=== PATIENT | female | born 1965 | race African-American/Black ===

== ENCOUNTER 2016-04-25 09:47 | Emergency (ER) | payer SELFPAY ==
[~2016-04-25] VITALS: Ht 160 cm; Wt 105.0 kg
[~2016-04-25 09:47] MED LIST: ERYT1O LEFT EYE
[2016-04-25 09:48] VITALS: BP 187/81; PULSE 73; RESP 15; TEMP 98.1; O2SAT 99
[2016-04-25 10:09] VITALS: BP 133/64
--- NOTE | 2016-04-25 10:31 | PD ---
HPI Chief Complaint: Cold / Flu Symptoms Time Seen by Provider: 10:30 Travel History International Travel<30 days: No Contact w/Intl Traveler<30days: No Traveled to known affect area: No History of Present Illness HPI 51-year-old Afro-[place] Islander female coming in with several day history of increasing cough and wheezing. Patient has a history of asthma. Patient states her cough become productive in the last couple of days. He is unsure fever but has had chills. She denies headache, sore throat, or pain, nausea, vomiting, or diarrhea. Patient states she does not have a nebulizer or inhaler. She has needed prednisone in the past for her asthma. She has no known drug allergies. [facility] Past Medical History Asthma: Yes Cardiovascular Problems: Yes (HTN) Chest Pain: Yes Diminished Hearing: No Hypertension: Yes Respiratory: Yes (copd) LMP: last week : 2 Para: 2 Social History Alcohol Use: Yes (OCCASIONAL) Tobacco Use: No (quit March) Substance Use: No Allergies-Medications (Allergen,Severity, Reaction): Coded Allergies: No Known Allergies (Verified , 04/25/16) Reported Meds & Prescriptions Reported Meds & Active Scripts Active Review of Systems Except as stated in HPI: all other systems reviewed are Neg General / Constitutional: Positive: Chills, No: Fever Eyes: No: Visual changes HENT: Positive: Rhinitis, Rhinorrhea, Congestion, No: Headaches, Sore Throat, Nosebleed, Neck Stiffness, Neck Pain, Ear Discharge, Earache Cardiovascular: No: Chest Pain or Discomfort Respiratory: Positive: Cough, Shortness of Breath, Wheezing, No: Sneezing, Orthopnea, Hemoptysis, Stridor, Night Sweats, Pleuritic Pain Gastrointestinal: No: Nausea, Vomiting, Diarrhea, Abdominal Pain Genitourinary: No: Dysuria Musculoskeletal: No: Pain Skin: No Rash Neurologic: No: Weakness Psychiatric: No: Depression Endocrine: No: Polydipsia Hematologic/Lymphatic: No: Easy Bruising Physical Exam Narrative GENERAL: Patient appears in mild to moderate respiratory distress. SKIN: Warm and dry. Normal color. Normal turgor. No diaphoresis. HEAD: Atraumatic. Normocephalic. EYES: Pupils equal and round. No scleral icterus. No injection or drainage. ENT: No nasal bleeding or discharge. Mucous membranes pink and moist. TMs are clear bilaterally no sinus tenderness. Pharynx appears normal. No significant erythema or injection. Airway is patent. NECK: Trachea midline. Supple and nontender. CARDIOVASCULAR: Regular rate and rhythm. RESPIRATORY: No accessory muscle use. Diffuse expiratory wheezes throughout to auscultation. No rales or rhonchi. Breath sounds equal bilaterally. GASTROINTESTINAL: Abdomen soft, non-tender, nondistended. Hepatic and splenic margins not palpable. MUSCULOSKELETAL: Extremities without clubbing, cyanosis, or edema. No obvious deformities. NEUROLOGICAL: Awake and alert. No obvious cranial nerve deficits. Motor grossly within normal limits. Five out of 5 muscle strength in the arms and legs. Normal speech. PSYCHIATRIC: Appropriate mood and affect; insight and judgment normal. Data Data Last Documented VS Vital Signs Date Time Temp Pulse Resp B/P Pulse Ox O2 Delivery O2 Flow Rate FiO2 04/25/16 10:57 98 21 04/25/16 10:09 133/64 04/25/16 09:48 98.1 73 15 Orders Ecg Monitoring (04/25/16 10:44) Oximetry (04/25/16 10:44) Oxygen Administration (04/25/16 10:44) Prednisone (Deltasone) (04/25/16 10:45) Albuterol-Ipratropium Neb (Duoneb Neb) (04/25/16 10:45) Chest, Single Ap (04/25/16 10:44) MDM Medical Decision Making Medical Screen Exam Complete: Yes Emergency Medical Condition: Yes Differential Diagnosis Upper respiratory infection. Bronchitis. Asthmatic flare. Wheezing. Narrative Course Patient is medically stable at time of exam. Patient is given 60 mg prednisone by mouth as well as DuoNeb 3 every 15 minutes. Chest x-ray is obtained. Chest x-ray shows no acute signs of pneumonia. Prominent heart is noted and unchanged from previous. No signs of CHF per radiologist. After the above treatment patient appears improved, with improved air movement with auscultation. Patient is discharged home on Bactrim DS twice a day 10 days. Take prednisone 20 mg twice a day 7 days. Patient is given albuterol metered-dose inhaler 2 puffs every 4-6 hours when necessary wheeze. Patient is given a work note. Patient is to follow-up with her primary care physician or return to emergency Department with worsening symptoms as needed. Diagnosis Primary Impression: Asthma with acute exacerbation in adult Additional Impressions: Bronchitis Wheezing Referrals: Primary Care Physician Patient Instructions: Asthma (ED), General Instructions, How to Use a Metered- Dose Inhaler (DC) Departure Forms: Work Release Enter return to work date: Apr 29, 2016 Additional Instructions: Chest x-ray shows no acute signs of pneumonia. Prominent heart is noted and unchanged from previous. No signs of CHF per radiologist. After the above treatment patient appears improved, with improved air movement with auscultation. Patient is discharged home on Bactrim DS twice a day 10 days. Take prednisone 20 mg twice a day 7 days. Patient is given albuterol metered-dose inhaler 2 puffs every 4-6 hours when necessary wheeze. Patient is given a work note. Patient is to follow-up with her primary care physician or return to emergency Department with worsening symptoms as needed. Med/Other Pt SpecificInfo: Prescription(s) given Disposition: 01 DISCHARGE HOME Condition: Stable Jesús Byrd Apr 25, 2016 10:30
[2016-04-25] MEDS ORDERED: predniSONE 20 MG TAB PO ONE (10:45)
[2016-04-25] MEDS: RESP: ALBUTEROL 2.5 MG/IPRATROPIUM 0.5 MG NEB (SCH) INH ×2 (10:53→10:54)
[2016-04-25 10:57] VITALS: O2SAT 98
--- NOTE | 2016-04-25 11:41 | RADRPT ---
EXAM DATE/TIME: 04/25/2016 10:42 [facility] COMPARISON: CHEST SINGLE AP, July 14, 2014, 10:32. INDICATIONS : Pain in Middle Anterior Chest. Shortness of Breath. Cough for 8 days. MEDICAL HISTORY : None. SURGICAL HISTORY : None. ENCOUNTER: Initial ACUITY: 1 week PAIN SCORE: 8/10 LOCATION: Bilateral chest FINDINGS: A single view of the chest demonstrates the lungs to be symmetrically aerated without evidence of mas s, infiltrate or effusion. The heart size remains prominent. There is no perihilar edema. Osseous st ructures are intact. CONCLUSION: No acute disease. There is no evidence of pneumonia. Rodriguez Bird MD on April 25, 2016 at 11:38 Board Certified Radiologist. This report was verified electronically.
[2016-04-25] MEDS ORDERED: PRED20 PO (11:53)
[2016-04-25] MEDS ORDERED: BACT800T5 PO (11:53)
[2016-04-25] MEDS ORDERED: VENTAER INH (11:53)
== END 2016-04-25 12:12 | disposition home or self-care (01) ==
LOC: NEPB 09:47
DX: J44.1 Chronic obstructive pulmonary disease with (acute) exacerbation (principal); I10 Essential (primary) hypertension; Z87.891 Personal history of nicotine dependence
CPT/HCPCS: 71010; 94640; 94664; 99283; J7512

== ENCOUNTER 2016-04-28 11:10 | Emergency (ER) | payer SELFPAY ==
[~2016-04-28] VITALS: Ht 160 cm; Wt 104.5 kg
[~2016-04-28 11:10] MED LIST changes: +BACT800T5 PO; -ERYT1O LEFT EYE; +PRED20 PO; +VENTAER INH
[2016-04-28 11:13] VITALS: BP 168/82; PULSE 93; RESP 24; TEMP 98.5; O2SAT 89
[2016-04-28] MEDS ORDERED: SODIUM CHLORIDE 0.9% FLUSH 5 ML FLUSH IVF PRN (11:45)
[2016-04-28 11:58] LABS: AUTOMATED NEUTROPHIL # 3.8 TH/MM3 (1.8-7.7); BASOPHIL # 0.1 TH/MM3 (0-0.2); BASOPHIL % 1.3 % (0.0-2.0); EOSINOPHIL # 0.2 TH/MM3 (0-0.4); EOSINOPHIL % 2.5 % (0.0-4.0); HEMATOCRIT 33.8 % (35.0-46.0); LYMPH % 18.1 % (9.0-44.0); LYMPHOCYTE # 1.1 TH/MM3 (1.0-4.8); MEAN CELL VOLUME 65.2 FL (80.0-100.0); MEAN CORPUSCULAR HEMOGLOBIN 21.1 PG (27.0-34.0); MEAN CORPUSCULAR HGB CONC 32.4 % (32.0-36.0); MONO % 17.9 % (0.0-8.0); NEUT % 60.2 % (16.0-70.0); PLATELET COUNT 298 TH/MM3 (150-450); RED BLOOD COUNT 5.18 MIL/MM3 (4.00-5.30); RED CELL DISTRIBUTION WIDTH 25.2 % (11.6-17.2); WHITE BLOOD COUNT 6.2 TH/MM3 (4.0-11.0)
[2016-04-28] MEDS ORDERED: methylPREDNISolone SOD SUCC 125 MG/2 ML VIAL IV PUSH ONE (12:00)
[2016-04-28 12:01] LABS: HEMO FLAGS AUTO DIFF
--- NOTE | 2016-04-28 12:02 | RADRPT ---
EXAM DATE/TIME: 04/28/2016 11:34 [facility] COMPARISON: CHEST SINGLE AP, April 25, 2016, 10:42. INDICATIONS : Cough. MEDICAL HISTORY : None. SURGICAL HISTORY : None. ENCOUNTER: Initial ACUITY: 3 days PAIN SCORE: 0/10 LOCATION: Bilateral chest FINDINGS: A single view of the chest demonstrates a mild infiltrate in the right lung base. Otherwise, the lung s are clear. There is some mild prominence of the pulmonary vasculature suggestive of some venous con gestion. The heart is diffusely enlarged but stable compared to the prior examination. There are no p leural effusions. The bony structures are stable.. CONCLUSION: 1. Mild right lower lung infiltrate. 2. Mild pulmonary venous congestion 3. Stable cardiomegaly. Randell Lagos MD on April 28, 2016 at 11:59 Board Certified Radiologist. This report was verified electronically.
[2016-04-28 12:04] VITALS: O2SAT 92
[2016-04-28] MEDS: RESP: ALBUTEROL 2.5 MG/IPRATROPIUM 0.5 MG NEB (SCH) INH ×2 (12:06→12:55)
[2016-04-28 12:15] LABS: ALT (GPT) 19 U/L (10-53); ANION GAP 8 MEQ/L (5-15); AST (GOT) 20 U/L (15-37); BICARBONATE 29.2 MEQ/L (21.0-32.0); BLOOD UREA NITROGEN 11 MG/DL (7-18); CHLORIDE 101 MEQ/L (98-107); GLOMERULAR FILTRATION RATE 70 ML/MIN (>89); POTASSIUM 3.7 MEQ/L (3.5-5.1); SODIUM (NA) 138 MEQ/L (136-145)
[2016-04-28 12:17] LABS: ALKALINE PHOSPHATASE 59 U/L (45-117); TOTAL BILIRUBIN ADULT 0.2 MG/DL (0.2-1.0)
[2016-04-28 12:25] VITALS: BP 164/78; PULSE 86; RESP 17; O2SAT 93
[2016-04-28 12:31] LABS: SCAN/DIFF AUTO DIFF CONFIRMED
[2016-04-28 12:56] VITALS: O2SAT 92
--- NOTE | 2016-04-28 13:21 | PD ---
HPI Chief Complaint: Respiratory Symptoms Time Seen by Provider: 11:56 Travel History International Travel<30 days: No Contact w/Intl Traveler<30days: No Traveled to known affect area: No History of Present Illness HPI 51-year-old female with history of COPD, nursing notes reviewed, presents to the ER today because of several days history of coughing, worsening shortness of breath, not controlled with her usual COPD exacerbation medications. She also complains of sore throat, body aches, not feeling well for a week. She does not know any sick contacts. She denies any fevers or other symptoms. Modifying Factors: None Associated Signs & Symptoms: Coughing, shortness of breath, Risk Factors: COPD PFSH Past Medical History Asthma: Yes Cardiovascular Problems: Yes (HTN) Chest Pain: Yes Diminished Hearing: No Hypertension: Yes Respiratory: Yes ?: Not LMP: -04/22/16 : 2 Para: 2 Past Surgical History Surgical History: No Previous Surgery Social History Alcohol Use: No Tobacco Use: No (quit March) Substance Use: No Allergies-Medications (Allergen,Severity, Reaction): Coded Allergies: No Known Allergies (Verified , 04/28/16) Reported Meds & Prescriptions Reported Meds & Active Scripts Active No Active Prescriptions or Reported Medications Review of Systems Except as stated in HPI: all other systems reviewed are Neg Physical Exam Narrative GENERAL: Well-nourished, well-developed middle age after [place] female patient in mild respiratory distress. Awake and oriented 3. SKIN: Warm and dry. HEAD: Normocephalic. EYES: No scleral icterus. No injection or drainage. NECK: Supple, trachea midline. CARDIOVASCULAR: Regular rate and rhythm without murmurs, gallops, or rubs. RESPIRATORY: Breath sounds equal with wheezing throughout bilaterally, right lower lobe crackles. Mild accessory muscle use. GASTROINTESTINAL: Abdomen soft, non-tender, nondistended. MUSCULOSKELETAL: No cyanosis, or edema. BACK: Nontender without obvious deformity. No CVA tenderness. Data Data Last Documented VS Vital Signs Date Time Temp Pulse Resp B/P Pulse Ox O2 Delivery O2 Flow Rate FiO2 04/28/16 12:56 92 Nasal Cannula 2.00 04/28/16 12:25 86 17 164/78 04/28/16 12:04 21 04/28/16 11:13 98.5 Orders Complete Blood Count With Diff (04/28/16 11:37) Comprehensive Metabolic Panel (04/28/16 11:37) Lactic Acid Sepsis Protocol (04/28/16 11:37) Influenzae A/B Antigen (04/28/16 11:37) Blood Culture (04/28/16 11:37) Chest, Single Ap (04/28/16 11:37) Sodium Chloride 0.9% Flush (Ns Flush) (04/28/16 11:45) Methylprednisolone So Succ Inj (Solumedr (04/28/16 12:00) Albuterol-Ipratropium Neb (Duoneb Neb) (04/28/16 12:00) Albuterol-Ipratropium Neb (Duoneb Neb) (04/28/16 12:45) Labs Laboratory Tests Test 04/28/16 11:46 White Blood Count 6.2 TH/MM3 Red Blood Count 5.18 MIL/MM3 Hemoglobin 10.9 GM/DL Hematocrit 33.8 % Mean Corpuscular Volume 65.2 FL Mean Corpuscular Hemoglobin 21.1 PG Mean Corpuscular Hemoglobin 32.4 % Concent Red Cell Distribution Width 25.2 % Platelet Count 298 TH/MM3 Mean Platelet Volume 9.6 FL Neutrophils (%) (Auto) 60.2 % Lymphocytes (%) (Auto) 18.1 % Monocytes (%) (Auto) 17.9 % Eosinophils (%) (Auto) 2.5 % Basophils (%) (Auto) 1.3 % Neutrophils # (Auto) 3.8 TH/MM3 Lymphocytes # (Auto) 1.1 TH/MM3 Monocytes # (Auto) 1.1 TH/MM3 Eosinophils # (Auto) 0.2 TH/MM3 Basophils # (Auto) 0.1 TH/MM3 CBC Comment AUTO DIFF Differential Comment AUTO DIFF CONFIRMED Sodium Level 138 MEQ/L Potassium Level 3.7 MEQ/L Chloride Level 101 MEQ/L Carbon Dioxide Level 29.2 MEQ/L Anion Gap 8 MEQ/L Blood Urea Nitrogen 11 MG/DL Creatinine 1.01 MG/DL Estimat Glomerular Filtration 70 ML/MIN Rate Random Glucose 86 MG/DL Lactic Acid Level 1.0 mmol/L Calcium Level 8.3 MG/DL Total Bilirubin 0.2 MG/DL Aspartate Amino Transf 20 U/L (AST/SGOT) Alanine Aminotransferase 19 U/L (ALT/SGPT) Alkaline Phosphatase 59 U/L Total Protein 7.4 GM/DL Albumin 3.3 GM/DL MDM Medical Decision Making Medical Screen Exam Complete: Yes Emergency Medical Condition: Yes Medical Record Reviewed: Yes Interpretation(s) Laboratory Tests Test 04/28/16 11:46 Hemoglobin 10.9 GM/DL (11.6-15.3) Hematocrit 33.8 % (35.0-46.0) Mean Corpuscular Volume 65.2 FL (80.0-100.0) Mean Corpuscular Hemoglobin 21.1 PG (27.0-34.0) Red Cell Distribution Width 25.2 % (11.6-17.2) Monocytes (%) (Auto) 17.9 % (0.0-8.0) Monocytes # (Auto) 1.1 TH/MM3 (0-0.9) Creatinine 1.01 MG/DL (0.50-1.00) Estimat Glomerular Filtration 70 ML/MIN (>89) Rate Calcium Level 8.3 MG/DL (8.5-10.1) Albumin 3.3 GM/DL (3.4-5.0) Last 24 hours Impressions Chest X-Ray 04/28/16 1137 Signed Impressions: Service Date/Time: Thursday, April 28, 2016 11:34 - CONCLUSION: 1. Mild right lower lung infiltrate. 2. Mild pulmonary venous congestion 3. Stable cardiomegaly. Randell Lagos MD Differential Diagnosis Coughing, shortness of breathCOPD exacerbation versus pneumonia versus bronchitis versus CHF Narrative Course Chest x-ray shows right lower lobe infiltrates indicative of possible underlying pneumonia. She was given Solu-Medrol and DuoNeb's in the ER with improvement symptoms. On reevaluation at 1:30 PM, she is feeling improved and my plan would be to release her with treatment of pneumonia and COPD exacerbation and have her follow-up with primary care physician. Return for worsening in fevers, shortness of breath, or new symptoms as needed. The plan has been discussed with her and she states understanding. Diagnosis Primary Impression: Asthma with acute exacerbation in adult Additional Impression: UNSPECIFIED BACTERIAL PNEUMONIA Med/Other Pt SpecificInfo: Prescription(s) given Scripts Albuterol 6.7 GM Inh (Proventil Hfa 6.7 GM Inh)90 Mcg/Act Aer2 Puff INH Q4-6H PRN (SHORTNESS OF BREATH) #1 INHALER Ref 0 Prov:Faith Zheng MD 04/28/16 Levofloxacin (Levaquin)750 Mg [id number] Mg PO DAILY 7 Days Ref 0 Prov:Faith Zheng MD 04/28/16 Prednisone 50 Mg Tab50 Mg PO DAILY #5 TAB Ref 0 Prov:Faith Zheng MD 04/28/16 Disposition: 01 DISCHARGE HOME Condition: Stable Faith Zheng MD Apr 28, 2016 13:21
[2016-04-28] MEDS ORDERED: PRED50 PO (13:53)
[2016-04-28] MEDS ORDERED: ALBU6.7H INH (13:53)
[2016-04-28] MEDS ORDERED: LEVA750T PO (13:53)
== END 2016-04-28 14:08 | disposition home or self-care (01) ==
LOC: NEPA 11:10
DX: J45.901 Unspecified asthma with (acute) exacerbation (principal); J15.9 Unspecified bacterial pneumonia; J44.9 Chronic obstructive pulmonary disease, unspecified
CPT/HCPCS: 71010; 80053; 83605; 85025; 87040; 87804; 94640; 94664; 96374; 99285; J2930

== ENCOUNTER 2016-05-01 14:47 | Emergency (ER) | payer SELFPAY ==
[~2016-05-01] VITALS: Ht 160 cm; Wt 100.0 kg
[~2016-05-01 14:47] MED LIST changes: +ALBU6.7H INH; -BACT800T5 PO; +LEVA750T PO; -PRED20 PO; +PRED50 PO; -VENTAER INH
[2016-05-01 14:49] VITALS: BP 245/107; PULSE 82; RESP 18; TEMP 98; O2SAT 97
--- NOTE | 2016-05-02 08:50 | EKG ---
Date Performed: 05/01/2016 Time Performed: 15:27:04 PTAGE: 51 years EKG: ECTOPIC ATRIAL RHYTHM MODERATE VOLTAGE CRITERIA FOR LVH, CONSIDER NORMAL VARIANT ABNORMAL R HYTHM ECG NO PREVIOUS TRACING DOCTOR: Alan Biggs Interpretating Date/Time 05/02/2016 08:44:16
== END 2016-05-01 17:26 | disposition left against medical advice (07) ==
LOC: NED 17:20
DX: R94.31 Abnormal electrocardiogram [ECG] [EKG] (principal)
CPT/HCPCS: 93005; 99281

== ENCOUNTER 2016-10-31 12:23 | Emergency (ER) | payer OTHER ==
[~2016-10-31] VITALS: Ht 160 cm; Wt 108.0 kg
[2016-10-31 12:25] VITALS: BP 188/82; PULSE 84; RESP 17; TEMP 97.9; O2SAT 97
--- NOTE | 2016-10-31 12:36 | PD ---
Physical Exam Date Seen by Provider: Oct 31, 2016 Time Seen by Provider: 12:34 Narrative 51 YOBF C/O COGH ADRIANO X 2 DAYS WORSE TODAY. OUT OF MEDS. H/O COPD VS REVIEWED WAITING FOR BED PLACEMENT Data Data Last Documented VS Vital Signs Date Time Temp Pulse Resp B/P Pulse Ox O2 Delivery O2 Flow Rate FiO2 10/31/16 12:25 97.9 84 17 188/82 97 MDM Supervised Visit with SERGO: Miguelangel Clifton Oct 31, 2016 12:36
--- NOTE | 2016-10-31 13:03 | PD ---
HPI Chief Complaint: Respiratory Symptoms Time Seen by Provider: 13:02 Travel History International Travel<30 days: No Contact w/Intl Traveler<30days: No Traveled to known affect area: No History of Present Illness HPI 51-year-old female, with history of asthma and COPD, presents to emergency department complaining of shortness of breath for the past few days. She also reports nasal congestion and cough. Denies fever, vomiting. Denies ear pain or sore throat. Denies chest pain. Reports wheezing. Denies tobacco use. Has been using her albuterol inhaler with minimal relief. Last used her inhaler earlier today. No known allergies. Has no other medical complaints. Symptoms are mild in severity. No modifying factors or associated signs and symptoms. PFSH Past Medical History Asthma: Yes Cardiovascular Problems: Yes (HTN) Chest Pain: Yes Diminished Hearing: No Hypertension: Yes Respiratory: Yes (COPD) : 2 Para: 2 Social History Alcohol Use: No Tobacco Use: No (quit March) Substance Use: No Allergies-Medications (Allergen,Severity, Reaction): Coded Allergies: No Known Allergies (Verified , 10/31/16) Reported Meds & Prescriptions Reported Meds & Active Scripts Active Deltasone (Prednisone) 20 Mg Tab 40 Mg PO DAILY 4 Days start 11/01/2016 Azithromycin 500 Mg Tab 500 Mg PO DAILY Proventil Hfa 6.7 GM Inh (Albuterol Sulfate) 90 Mcg/Act Aer 2 Puff INH Q4-6H PRN Review of Systems Except as stated in HPI: all other systems reviewed are Neg Physical Exam Narrative GENERAL: Well-nourished, well-developed female patient, in no acute distress; afebrile, nontoxic-appearing SKIN: Warm and dry. HEAD: Atraumatic. Normocephalic. EYES: Pupils equal and round. No scleral icterus. No injection or drainage. ENT: Mucosa pink and moist. No erythema or exudates. No uvular edema. No uvular , palatal, or tonsillar deviation. Airway patent. Nares without nasal blood, purulent drainage or septal hematoma. EARS: Bilateral pinnae and external canals appear within normal limits. Bilateral tympanic membranes without erythema, dullness or perforation. NECK: Trachea midline. No lymphadenopathy. CARDIOVASCULAR: Regular rate and rhythm. No murmur appreciated. RESPIRATORY: No accessory muscle use. Lungs with Wheezing throughout to auscultation. Breath sounds equal bilaterally. No retractions or tachypnea. No Audible wheezing noted. GASTROINTESTINAL: Abdomen soft, non-tender, nondistended. Hepatic and splenic margins not palpable. Bowel sounds are active 4 quadrants. MUSCULOSKELETAL: No obvious deformities. No clubbing. No cyanosis. No edema. NEUROLOGICAL: Awake and alert. Oriented 3. No obvious cranial nerve deficits. Motor grossly within normal limits. Normal speech. Moves all extremities. 5/5 strength to all extremities. PSYCHIATRIC: Appropriate mood and affect; insight and judgment normal. Data Data Last Documented VS Vital Signs Date Time Temp Pulse Resp B/P Pulse Ox O2 Delivery O2 Flow Rate FiO2 10/31/16 12:25 97.9 84 17 188/82 97 Orders Prednisone (Deltasone) (10/31/16 13:15) Albuterol-Ipratropium Neb (Duoneb Neb) (10/31/16 13:15) [facility] Medical Decision Making Medical Screen Exam Complete: Yes Emergency Medical Condition: Yes Medical Record Reviewed: Yes Differential Diagnosis Asthma exacerbation, COPD exacerbation, viral illness Narrative Course 51-year-old female with asthma exacerbation and viral illness. Patient is afebrile and nontoxic-appearing. She is in no acute distress and oxygen saturation is 98% on room air. No retractions or tachypnea. No audible wheezing. DuoNeb, Deltasone administered in the ER. Patient denies shortness of breath on reexamination. Lungs are clear and equal throughout. Proventil inhaler, Deltasone, azithromycin prescribed for home. Instructed patient to follow up with primary care provider. Patient verbalizes understanding and agreement with treatment plan. Patient is medically cleared and stable for discharge. Discussed reasons to return to the emergency department. Patient agrees with treatment plan. The patients vital signs are stable and the patient is stable for outpatient follow-up and treatment. Patient discharged home, stable and in no acute distress. Diagnosis Primary Impression: Asthma with acute exacerbation in adult Qualified Code: J45.901 - Asthma with acute exacerbation in adult, unspecified asthma severity Additional Impression: Viral illness Referrals: Primary Care Physician Patient Instructions: Asthma (ED), Cold Symptoms (ED), General Instructions, Safe Use of Cough and Cold Medicines (ED) Departure Forms: Tests/Procedures, Work Release Enter return to work date: Nov 01, 2016 Additional Instructions: Use albuterol inhaler as needed for shortness of breath and/or wheezing Take oral steroids as prescribed and complete full course Avoid asthma triggers such as smoking cigarettes, second hand smoke, dust, known allergens Follow-up with primary care provider Return to emergency department immediately with worsening of symptoms Med/Other Pt SpecificInfo: Prescription(s) given Scripts Prednisone (Deltasone)20 Mg Tab40 Mg PO DAILY 4 Days Ref 0 start 11/01/2016 Prov:Sandra Pedro 10/31/16 Azithromycin 500 Mg [id number] Mg PO DAILY #5 TAB Ref 0 Prov:Sandra Pedro 10/31/16 Albuterol 6.7 GM Inh (Proventil Hfa 6.7 GM Inh)90 Mcg/Act Aer2 Puff INH Q4-6H PRN (SHORTNESS OF BREATH) #1 INHALER Ref 0 Prov:Sandra Pedro 10/31/16 Disposition: 01 DISCHARGE HOME Condition: Stable Sandra Pedro Oct 31, 2016 13:03
[2016-10-31] MEDS ORDERED: ALBU6.7H INH (13:05)
[2016-10-31] MEDS ORDERED: AZIT500T2 PO (13:05)
[2016-10-31] MEDS ORDERED: PRED-503 PO (13:05)
[2016-10-31] MEDS ORDERED: RESP: ALBUTEROL 2.5 MG/IPRATROPIUM 0.5 MG NEB (SCH) INH ONE (13:15)
[2016-10-31] MEDS ORDERED: predniSONE 20 MG TAB PO ONE (13:15)
== END 2016-10-31 15:20 | disposition home or self-care (01) ==
LOC: NEPK 12:23
DX: J45.901 Unspecified asthma with (acute) exacerbation (principal); B34.9 Viral infection, unspecified; I10 Essential (primary) hypertension; J44.9 Chronic obstructive pulmonary disease, unspecified
CPT/HCPCS: 94664; 99284; J7512

== ENCOUNTER 2016-11-12 14:49 | Observation (INO) | payer OTHER ==
[2016-11-12] VITALS (8 sets, daily range): BP systolic 177–190; BP diastolic 79–96; PULSE 75–88; RESP 17–18; TEMP 97–98.7; O2SAT 94–100
[~2016-11-12] VITALS: Ht 160 cm; Wt 115.0 kg
[~2016-11-12 14:49] MED LIST changes: +AZIT500T2 PO; -LEVA750T PO; +PRED-503 PO; -PRED50 PO
--- NOTE | 2016-11-12 14:56 | PD ---
Physical Exam Time Seen by Provider: 14:54 Narrative 51yo F c/o left sided chest pain, left arm pain, and SOB since last night. + cough and congestion for a few days. Hx of CHF. Patient seen in triage. VS reviewed. Patient awaiting bed placement. Data Data Last Documented VS Vital Signs Date Time Temp Pulse Resp B/P (MAP) Pulse Ox O2 Delivery O2 Flow Rate FiO2 11/12/16 14:50 98.7 88 17 177/96 (123) 97 MDM Supervised Visit with SERGO: Sandra Branham Nov 12, 2016 14:56
[2016-11-12] MEDS ORDERED: SODIUM CHLORIDE 0.9% FLUSH 10 ML FLUSH IVF PRN (15:15)
[2016-11-12] MEDS ORDERED: AMLO5TAB2 PO (15:28)
[2016-11-12] MEDS ORDERED: FURO1TAB60 PO (15:28)
--- NOTE | 2016-11-12 15:42 | PD ---
HPI . Chest pain Chief Complaint: Respiratory Symptoms Time Seen by Provider: 15:06 Travel History International Travel<30 days: No Contact w/Intl Traveler<30days: No Traveled to known affect area: No History of Present Illness HPI This patient presents complaining with chest pain, a fluttering in her chest and pain with respirations. Onset of symptoms was last night. She states that her chest pain is exacerbated with breathing. No noted relieving factor. Pain is rated 7/10. She reports a history of CHF. She also states that she uses both an albuterol MDI and an albuterol nebulizer machine at home. She last used her MDI last night and last used her nebulizer machine several days ago. PFSH Past Medical History Asthma: Yes Cardiovascular Problems: Yes Chest Pain: Yes Diminished Hearing: No Hypertension: Yes Respiratory: Yes ?: Not : 2 Para: 2 Social History Alcohol Use: Yes (on occasion) Tobacco Use: No (quit March 2016, smoke 1 ppd for 20yrs) Substance Use: Yes (hx of coccaine use last used 11-06-16) Allergies-Medications (Allergen,Severity, Reaction): Coded Allergies: No Known Allergies (Verified , 10/31/16) Reported Meds & Prescriptions Reported Meds & Active Scripts Active Deltasone (Prednisone) 20 Mg Tab 40 Mg PO DAILY 4 Days start 11/01/2016 Proventil Hfa 6.7 GM Inh (Albuterol Sulfate) 90 Mcg/Act Aer 2 Puff INH Q4-6H PRN Reported Lasix (Furosemide) 40 Mg Tab 40 Mg PO BID Amlodipine (Amlodipine Besylate) 5 Mg Tab 5 Mg PO DAILY Review of Systems Except as stated in HPI: all other systems reviewed are Neg HENT: Positive: Congestion Cardiovascular: Positive: Chest Pain or Discomfort Respiratory: Positive: Shortness of Breath Physical Exam Narrative GENERAL: Patient is awake and alert and does not appear to be in any distress. SKIN: Warm and dry. HEAD: Atraumatic. Normocephalic. EYES: Pupils equal and round. Extraocular movements are intact. ENT: No nasal bleeding or discharge. Mucous membranes pink and moist. NECK: Trachea midline. Neck is supple. CARDIOVASCULAR: Regular rate and rhythm. Heart sounds are normal. RESPIRATORY: No accessory muscle use. She had some basilar wheezing which cleared with a cough. Good air movement. GASTROINTESTINAL: Abdomen soft, non-tender, nondistended. MUSCULOSKELETAL: No obvious deformities. No edema. NEUROLOGICAL: Awake and alert. No obvious cranial nerve deficits. Motor grossly within normal limits. Normal speech. PSYCHIATRIC: Appropriate mood and affect; insight and judgment normal. Data Data Last Documented VS Vital Signs Date Time Temp Pulse Resp B/P (MAP) Pulse Ox O2 Delivery O2 Flow Rate FiO2 11/12/16 15:20 85 24 100 Nasal Cannula 2.00 11/12/16 15:17 11/12/16 14:50 98.7 Orders Orders Complete Blood Count With Diff (11/12/16 15:06) Comprehensive Metabolic Panel (11/12/16 15:06) Act Partial Throm Time (Ptt) (11/12/16 15:06) Prothrombin Time / Inr (Pt) (11/12/16 15:06) Magnesium (Mg) (11/12/16 15:06) Ckmb (Isoenzyme) Profile (11/12/16 15:06) Troponin I (11/12/16 15:06) Iv Access Insert/Monitor (11/12/16 15:06) Electrocardiogram (11/12/16 15:06) Ecg Monitoring (11/12/16 15:06) Oximetry (11/12/16 15:06) Oxygen Administration (11/12/16 15:06) Chest, Single Ap (11/12/16 15:06) Sodium Chloride 0.9% Flush (Ns Flush) (11/12/16 15:15) B-Type Natriuretic Peptide (11/12/16 15:12) Magnesium (Mg) (11/12/16 15:12) Ckmb (Isoenzyme) Profile (11/12/16 15:12) Troponin I (11/12/16 15:12) CKMB (11/12/16 15:17) CKMB% (11/12/16 15:17) Blood Culture (11/12/16 16:21) Ceftriaxone Inj (Rocephin Inj) (11/12/16 16:30) Azithromycin Inj (Zithromax Inj) (11/12/16 16:30) Comprehensive Metabolic Panel (11/13/16 06:00) Free Thyroxine (T4) (11/13/16 06:00) Hemoglobin (Hgb) A1c (11/13/16 06:00) Magnesium (Mg) (11/13/16 06:00) Phosphorus (Po4) (11/13/16 06:00) Thyroid Stimulating Hormone (11/13/16 06:00) Complete Blood Count With Diff (11/13/16 06:00) Admit Order (Ed Use Only) (11/12/16 16:38) Labs Laboratory Tests Test 11/12/16 15:17 White Blood Count 10.4 TH/MM3 Red Blood Count 4.23 MIL/MM3 Hemoglobin 9.1 GM/DL Hematocrit 27.9 % Mean Corpuscular Volume 66.0 FL Mean Corpuscular Hemoglobin 21.5 PG Mean Corpuscular Hemoglobin Concent 32.7 % Red Cell Distribution Width 18.2 % Platelet Count 352 TH/MM3 Mean Platelet Volume 9.5 FL Neutrophils (%) (Auto) 64.1 % Lymphocytes (%) (Auto) 20.6 % Monocytes (%) (Auto) 10.4 % Eosinophils (%) (Auto) 4.2 % Basophils (%) (Auto) 0.7 % Neutrophils # (Auto) 6.7 TH/MM3 Lymphocytes # (Auto) 2.2 TH/MM3 Monocytes # (Auto) 1.1 TH/MM3 Eosinophils # (Auto) 0.4 TH/MM3 Basophils # (Auto) 0.1 TH/MM3 CBC Comment DIFF FINAL Differential Comment Prothrombin Time 11.0 SEC Prothromb Time International Ratio 1.0 RATIO Activated Partial Thromboplast Time 26.2 SEC Blood Urea Nitrogen 12 MG/DL Creatinine 1.12 MG/DL Random Glucose 79 MG/DL Total Protein 7.7 GM/DL Albumin 3.3 GM/DL Calcium Level 8.5 MG/DL Magnesium Level 1.9 MG/DL Alkaline Phosphatase 55 U/L Aspartate Amino Transf (AST/SGOT) 18 U/L Alanine Aminotransferase (ALT/SGPT) 16 U/L Total Bilirubin 0.2 MG/DL Sodium Level 140 MEQ/L Potassium Level 3.7 MEQ/L Chloride Level 104 MEQ/L Carbon Dioxide Level 27.8 MEQ/L Anion Gap 8 MEQ/L Estimat Glomerular Filtration Rate 63 ML/MIN Total Creatine Kinase 170 U/L Creatine Kinase MB 2.0 NG/ML Troponin I 0.06 NG/ML B-Type Natriuretic Peptide 301 PG/ML MDM Medical Decision Making Medical Screen Exam Complete: Yes Emergency Medical Condition: Yes Medical Record Reviewed: Yes (this patient's medical history is significant for COPD, hypertension and coronary artery disease. She reports a history of CHF but I do not see CHF in her problem list. I have reviewed previous chest x- rays and BMPs. She had never had a BNP done prior to today. Her chest x-rays have always shown cardiomegaly but no pulmonary edema. I do not see any previous pain has cardiac studies such as an echo. She does have Lasix on her medication list.) Interpretation(s) Her EKG shows a sinus rhythm. LVH. No acute ischemic changes. Differential Diagnosis Differential diagnosis of chest pain includes but is not limited to musculoskeletal pain, pulmonary embolism, acute coronary syndrome, pneumonia, pleurisy Narrative Course This patient presents with chest pain and shortness of breath. Her physical exam is unremarkable. Vital Signs Date Time Temp Pulse Resp B/P (MAP) Pulse Ox O2 Delivery O2 Flow Rate FiO2 11/12/16 15:20 85 24 100 Nasal Cannula 2.00 11/12/16 15:17 100 Nasal Cannula 2.00 11/12/16 15:17 18 100 Nasal Cannula 2.00 11/12/16 14:50 98.7 88 17 177/96 (123) 97 Last Impressions Chest X-Ray 11/12/16 1506 Signed Impressions: Service Date/Time: Saturday, November 12, 2016 15:30 - CONCLUSION: 1. Right lower lobe infiltrate. 2. Cardiomegaly. Alexander Akins Jr., MD The chest x-ray was independently viewed by me. Blood cultures, Rocephin and Zithromax have been ordered. CBC & BMP Diagram 11/12/16 15:17 Total Protein 7.7, Albumin 3.3 L, Calcium Level 8.5, Magnesium Level 1.9, Alkaline Phosphatase 55, Aspartate Amino Transf (AST/SGOT) 18, Alanine Aminotransferase (ALT/SGPT) 16, Total Bilirubin 0.2 Troponin is 0.06. BNP is 301. Physician Communication Physician Communication Dr. Bragg Diagnosis Primary Impression: Chest pain Qualified Codes: R07.1 - Chest pain on breathing Additional Impressions: Dyspnea Qualified Codes: R06.00 - Dyspnea, unspecified Pulmonary infiltrate in right lung on chest x-ray Elevated troponin Renal insufficiency Admitting Information Admitting Physician Requests: Observation Condition: Stable Saida Damian MD Nov 12, 2016 15:42
[2016-11-12 15:56] LABS: AUTOMATED NEUTROPHIL # 6.7 TH/MM3 (1.8-7.7); BASOPHIL # 0.1 TH/MM3 (0-0.2); BASOPHIL % 0.7 % (0.0-2.0); EOSINOPHIL # 0.4 TH/MM3 (0-0.4); EOSINOPHIL % 4.2 % (0.0-4.0); HEMATOCRIT 27.9 % (35.0-46.0); HEMO FLAGS DIFF FINAL; LYMPH % 20.6 % (9.0-44.0); LYMPHOCYTE # 2.2 TH/MM3 (1.0-4.8); MEAN CORPUSCULAR HEMOGLOBIN 21.5 PG (27.0-34.0); MEAN CORPUSCULAR HGB CONC 32.7 % (32.0-36.0); MONO % 10.4 % (0.0-8.0); NEUT % 64.1 % (16.0-70.0); PLATELET COUNT 352 TH/MM3 (150-450); RED BLOOD COUNT 4.23 MIL/MM3 (4.00-5.30); RED CELL DISTRIBUTION WIDTH 18.2 % (11.6-17.2); WHITE BLOOD COUNT 10.4 TH/MM3 (4.0-11.0)
--- NOTE | 2016-11-12 16:05 | RADRPT ---
EXAM DATE/TIME: 11/12/2016 15:30 [facility] COMPARISON: CHEST SINGLE AP, April 28, 2016, 11:34. INDICATIONS : Short of breath for a few days. MEDICAL HISTORY : None. SURGICAL HISTORY : None. ENCOUNTER: Initial ACUITY: 3 days PAIN SCORE: 0/10 LOCATION: Bilateral chest FINDINGS: A single portable frontal view of the chest shows significant cardiomegaly unchanged from the prior s tudy. Right lower lobe infiltrate. No effusions. Bony structures are unremarkable. CONCLUSION: 1. Right lower lobe infiltrate. 2. Cardiomegaly. Alexander Akins Jr., MD on November 12, 2016 at 16:01 Board Certified Radiologist. This report was verified electronically.
[2016-11-12 16:08] LABS: APTT (PATIENT) 26.2 SEC (24.3-30.1)
[2016-11-12 16:15] LABS: ANION GAP 8 MEQ/L (5-15); AST (GOT) 18 U/L (15-37); BICARBONATE 27.8 MEQ/L (21.0-32.0); BLOOD UREA NITROGEN 12 MG/DL (7-18); CHLORIDE 104 MEQ/L (98-107); GLOMERULAR FILTRATION RATE 63 ML/MIN (>89); MAGNESIUM 1.9 MG/DL (1.5-2.5); POTASSIUM 3.7 MEQ/L (3.5-5.1); SODIUM (NA) 140 MEQ/L (136-145)
[2016-11-12 16:16] LABS: CREATINE KINASE 170 U/L (26-192)
[2016-11-12 16:20] LABS: ALKALINE PHOSPHATASE 55 U/L (45-117); ALT (GPT) 16 U/L (10-53); CREATINE KINASE 182 U/L (26-192); TOTAL BILIRUBIN ADULT 0.2 MG/DL (0.2-1.0)
[2016-11-12] MEDS ORDERED: AZITHROMYCIN INJ 500 MG in SODIUM CHLOR 0.9% 250 ML INJ 250 ML IV ONE (16:30)
[2016-11-12] MEDS ORDERED: cefTRIAXone INJ 2,000 MG in SODIUM CHLORIDE 0.9% INJ 100 ML IV ONE (16:30)
[2016-11-12] MEDS ORDERED: ACETAMINOPHEN 325 MG TAB PO PRN ×2 (16:45)
[2016-11-12] MEDS ORDERED: SENNOSIDES 8.6 MG TAB PO PRN (16:45)
[2016-11-12] MEDS ORDERED: SODIUM CHLORIDE 0.9% FLUSH 10 ML FLUSH IV FLUSH PRN ×3 (16:45)
[2016-11-12] MEDS ORDERED: ALPRAZolam 0.25 MG TAB PO PRN (16:45)
[2016-11-12] MEDS ORDERED: RESP: ALBUTEROL 2.5 MG/IPRATROPIUM 0.5 MG NEB (PRN) INH (16:45)
[2016-11-12] MEDS ORDERED: ASPIRIN 325 MG TAB PO SCH (16:45)
[2016-11-12] MEDS ORDERED: ZOLPIDEM TARTRATE 5 MG TAB PO PRN (16:45)
[2016-11-12] MEDS ORDERED: NITROGLYCERIN 2% OINT 1 GM PACKET TOP PRN (16:45)
[2016-11-12] MEDS ORDERED: MAGNESIUM HYDROXIDE SUSP 30 ML CUP PO PRN (16:45)
[2016-11-12] MEDS ORDERED: NITROGLYCERIN 0.4 MG SL 25 TABS/BTL SL PRN (16:45)
[2016-11-12] MEDS ORDERED: oxyCODONE/ACETAMINOPHEN 10 MG/325 MG TAB PO PRN (16:45)
[2016-11-12] MEDS ORDERED: NALOXONE HCL 0.4 MG/ML AMP IV PRN (16:45)
[2016-11-12] MEDS ORDERED: LACTULOSE SYRUP 20 GM/30 ML CUP PO PRN (16:45)
[2016-11-12] MEDS ORDERED: BISACODYL 10 MG SUPP RECTAL PRN (16:45)
[2016-11-12] MEDS ORDERED: ONDANSETRON HCL 4 MG/2 ML VIAL IVP PRN (16:45)
[2016-11-12] MEDS ORDERED: MORPHINE SULFATE 4 MG/ML INJ IV PRN ×2 (16:45)
[2016-11-12] MEDS ORDERED: PROCHLORPERAZINE 25 MG SUPP RECTAL PRN (16:45)
[2016-11-12] MEDS ORDERED: oxyCODONE/ACETAMINOPHEN 5 MG/325 MG TAB PO PRN (16:45)
--- NOTE | 2016-11-12 17:53 | HHI.HP ---
[facility] Service [facility] Primary Care Physician No Primary Care Physician Admission Diagnosis chest pain, dypnea, elevated trop, pulm infiltrate Diagnoses: (1) Pulmonary infiltrate in right lung on chest x-ray Diagnosis: Principal (2) Elevated troponin Diagnosis: Principal (3) Chest pain Diagnosis: Principal (4) Renal insufficiency Diagnosis: Secondary (5) Dyspnea Diagnosis: Principal (6) Asthma with acute exacerbation in adult Diagnosis: Principal (7) Bronchitis Diagnosis: Principal Chief Complaint: Respiratory symptoms Travel History International Travel<30 Days: No Contact w/Intl Traveler <30 Da: No Traveled to Known Affected Are: No History of Present Illness This patient is a 51-year-old female. Who Presents complaining of chest pain, a fluttering in her chest and pain with respirations. Onset of symptoms was last night. She states that her chest pain is exacerbated with breathing. No noted relieving factor. Pain is rated 7 /10. She reports a history of CHF. She also states that she uses both an albuterol MDI and an albuterol nebulizer machine at home. She last used her MDI last night and last used her nebulizer machine several days ago. Patient normally sees Dr. Wing LUGO of cardiology States she no longer has a primary care physician Review of Systems Constitutional: COMPLAINS OF: Fever, Chills, DENIES: Diaphoretic episodes, Fatigue, Weight gain, Weight loss, Dizziness, Change in appetite Endocrine: DENIES: Abnorml menstrual pattern, Heat/cold intolerance Eyes: DENIES: Blurred vision, Diplopia, Eye inflammation Ears, nose, mouth, throat: DENIES: Tinnitus, Hearing loss, Vertigo, Nasal discharge Respiratory: COMPLAINS OF: Cough, Sputum production, Shortness of breath, DENIES: Snoring, Wheezing, Hemoptysis Cardiovascular: COMPLAINS OF: Chest pain, Dyspnea on Exertion, DENIES: Palpitations, Syncope Gastrointestinal: DENIES: Abdominal pain, Black stools, Bloody stools Genitourinary: DENIES: Abnormal vaginal bleeding, Dysmenorrhea Musculoskeletal: DENIES: Joint pain, Muscle aches, Stiffness Integumentary: DENIES: Abnormal pigmentation, Pruritus, Rash Hematologic/lymphatic: DENIES: Bruising, Lymphadenopathy Immunologic/allergic: DENIES: Eczema, Urticaria Neurologic: DENIES: Abnormal gait, Headache, Localized weakness, Paresthesias Psychiatric: DENIES: Anxiety, Confusion, Mood changes, Depression Past Family Social History Past Medical History Asthma Cardiovascular problems Possible congestive heart failure Chest pain Hypertension 2 para 2 Past Surgical History Denies Reported Medications Reported Meds & Active Scripts Active Deltasone (Prednisone) 20 Mg Tab 40 Mg PO DAILY 4 Days start 11/01/2016 Proventil Hfa 6.7 GM Inh (Albuterol Sulfate) 90 Mcg/Act Aer 2 Puff INH Q4-6H PRN Reported Lasix (Furosemide) 40 Mg Tab 40 Mg PO BID Amlodipine (Amlodipine Besylate) 5 Mg Tab 5 Mg PO DAILY Allergies: Coded Allergies: No Known Allergies (Verified , 10/31/16) Active Ordered Medications Current Medications Sodium Chloride (NS Flush) 2 ml UNSCH PRN IVF FLUSH AFTER USING IV ACCESS; Start 11/12/16 at 15:15 Ceftriaxone Sodium 2000 mg/ Sodium Chloride 100 ml @ 200 mls/hr ONCE ONCE IV Last administered on 11/12/16 16:43; Start 11/12/16 at 16:30; Stop 11/12/16 at 16:59; Status DC Azithromycin 500 mg/Sodium Chloride 250 ml @ 250 mls/hr ONCE ONCE IV Last administered on 11/12/16 16:43; Start 11/12/16 at 16:30; Stop 11/12/16 at 17:29 ; Status DC Sodium Chloride (NS Flush) 2 ml UNSCH PRN IV FLUSH FLUSH AFTER USING IV ACCESS ; Start 11/12/16 at 16:45; Status UNV Sodium Chloride (NS Flush) 2 ml BID IV FLUSH ; Start 11/12/16 at 21:00; Status UNV Acetaminophen (Tylenol) 650 mg Q4H PRN PO TEMP > 100.4; Start 11/12/16 at 16:45 ; Status UNV Ondansetron HCl (Zofran Inj) 4 mg Q6H PRN IVP NAUSEA OR VOMITING; Start at 16:45; Status UNV Prochlorperazine (Compazine Supp) 25 mg Q12H PRN GA NAUSEA OR VOMITING; Start 11/12/16 at 16:45; Status UNV Zolpidem Tartrate (Ambien) 5 mg HS PRN PO INSOMNIA; Start 11/12/16 at 16:45; Status UNV Enoxaparin Sodium (Lovenox Inj) 40 mg Q24H SQ ; Start 11/12/16 at 16:45; Status UNV Acetaminophen (Tylenol) 650 mg Q6H PRN PO PAIN SCALE 1 TO 2; Start 11/12/16 at 16:45; Status UNV Oxycodone/ Acetaminophen (Percocet 5-325 Mg) 1 tab Q6H PRN PO PAIN SCALE 3 TO 5; Start 11/12/16 at 16:45; Status UNV Oxycodone/ Acetaminophen (Percocet 10-325 Mg) 1 tab Q6H PRN PO PAIN SCALE 6 TO 10; Start 11/12/16 at 16:45; Status UNV Morphine Sulfate (Morphine Inj) 2 mg Q3H PRN IV Pain 3-5; if unable to take PO ; Start 11/12/16 at 16:45; Status UNV Morphine Sulfate (Morphine Inj) 4 mg Q3H PRN IV Pain 6-10;if unable to take PO ; Start 11/12/16 at 16:45; Status UNV Naloxone HCl (Narcan Inj) 0.4 mg UNSCH PRN IV SEE LABEL COMMENTS; Start at 16:45; Status UNV Senna/Docusate Sodium (Judit-Colace) 1 tab BID PO ; Start 11/12/16 at 21:00; Status UNV Magnesium Hydroxide (Milk Of Magnesia Liq) 30 ml Q12H PRN PO MILD - MODERATE CONSTIPATION; Start 11/12/16 at 16:45; Status UNV Sennosides (Senokot) 17.2 mg Q12H PRN PO MODERATE - SEVERE CONSTIPATION; Start 11/12/16 at 16:45; Status UNV Bisacodyl (Dulcolax Supp) 10 mg DAILY PRN RECTAL SEVERE CONSITIPATION; Start at 16:45; Status UNV Lactulose (Lactulose Liq) 30 ml DAILY PRN PO SEVERE CONSITIPATION; Start at 16:45; Status UNV Sodium Chloride (NS Flush) 2 ml UNSCH PRN IV FLUSH FLUSH AFTER USING IV ACCESS ; Start 11/12/16 at 16:45; Status UNV Sodium Chloride (NS Flush) 2 ml BID IV FLUSH ; Start 11/12/16 at 21:00; Status UNV Ceftriaxone Sodium 1000 mg/ Sodium Chloride 100 ml @ 200 mls/hr Q24H IV ; Start 11/13/16 at 15:00; Status UNV Azithromycin 500 mg/Sodium Chloride 250 ml @ 250 mls/hr Q24H IV ; Start at 15:00; Status UNV Albuterol/ Ipratropium (Duoneb Neb) 1 ampule Q6HR NEB INH ; Start 11/12/16 at 22:00; Status UNV Albuterol/ Ipratropium (Duoneb Neb) 1 ampule Q4HR NEB PRN INH SHORTNESS OF BREATH; Start 11/12/16 at 16:45; Status UNV Methylprednisolone Sodium Succinate (SoluMEDROL INJ) 40 mg Q12H IV ; Start 11/12 at 16:45; Status UNV Sodium Chloride (NS Flush) 2 ml BID IV FLUSH ; Start 11/12/16 at 21:00; Status UNV Sodium Chloride (NS Flush) 2 ml UNSCH PRN IV FLUSH FLUSH AFTER USING IV ACCESS ; Start 11/12/16 at 16:45; Status UNV Aspirin (Aspirin) 325 mg NOW PO ; Start 11/12/16 at 16:45; Stop 11/13/16 at 16: 44; Status UNV Aspirin (Ecotrin Ec) 325 mg DAILY PO ; Start 11/13/16 at 09:00; Status UNV Nitroglycerin (Nitroglycerin 2% Oint) 1 inch Q6HR PRN TOP CHEST CONGESTION; Start 11/12/16 at 16:45; Status UNV Nitroglycerin (Nitrostat Sl) 0.4 mg Q5M PRN SL CHEST PAIN; Start 11/12/16 at 16 :45; Status UNV Alprazolam (Xanax) 0.25 mg Q8H PRN PO ANXIETY; Start 11/12/16 at 16:45; Status UNV Atorvastatin Calcium (Lipitor) 40 mg HS PO ; Start 11/12/16 at 21:00; Status UNV Amlodipine Besylate (Norvasc) 5 mg DAILY PO ; Start 11/13/16 at 09:00; Status UNV Furosemide (Lasix) 40 mg BID PO ; Start 11/12/16 at 21:00; Status UNV Guaifenesin (Mucinex Er) 600 mg BID PO ; Start 11/12/16 at 21:00; Status UNV Family History Heart disease tobacco Social History Alcohol use on occasion back in March 2016 used to smoke a pack per day for 20 years did some cocaine on 11/06/2069 Physical Exam Vital Signs Vital Signs Date Time Temp Pulse Resp B/P (MAP) Pulse Ox O2 Delivery O2 Flow Rate FiO2 11/12/16 16:56 100 Nasal Cannula 2.00 11/12/16 15:20 85 24 100 Nasal Cannula 2.00 11/12/16 15:17 100 Nasal Cannula 2.00 11/12/16 15:17 18 100 Nasal Cannula 2.00 11/12/16 14:50 98.7 88 17 177/96 (123) 97 Physical Exam GENERAL: This is a well-nourished, well-developed patient, in no apparent distress. SKIN: No rashes, ecchymoses or lesions. Warm and dry. HEAD: Atraumatic. Normocephalic. No temporal or scalp tenderness. EYES: Pupils equal round and reactive. Extraocular motions intact. No scleral icterus. No injection or drainage. ENT: Nose without bleeding, purulent drainage or septal hematoma. Throat without erythema, tonsillar hypertrophy or exudate. Uvula midline. Airway patent. Tongue is midline NECK: Trachea midline. No JVD or lymphadenopathy. Supple, nontender, no meningeal signs. CARDIOVASCULAR: Regular rate and rhythm without murmurs, gallops, or rubs. S1 and S2 no S3-S4 no heave no thrill and no murmur and no rubs or gallops RESPIRATORY: Clear to auscultation. Breath sounds equal bilaterally. Wheezes and rhonchi bilaterally GASTROINTESTINAL: Abdomen soft, non-tender, nondistended. No hepato-splenomegaly , or palpable masses. No guarding. Obese MUSCULOSKELETAL: Extremities without clubbing, cyanosis, or edema. No joint tenderness, effusion, or edema noted. No calf tenderness. Negative Homans sign bilaterally. NEUROLOGICAL: Awake and alert. Cranial nerves II through XII intact. Motor and sensory grossly within normal limits. Five out of 5 muscle strength in all muscle groups. Normal speech. Appropriate mood and affect, insight and judgment are normal Laboratory Laboratory Tests Test 11/12/16 15:17 White Blood Count 10.4 Red Blood Count 4.23 Hemoglobin 9.1 Hematocrit 27.9 Mean Corpuscular Volume 66.0 Mean Corpuscular Hemoglobin 21.5 Mean Corpuscular Hemoglobin Concent 32.7 Red Cell Distribution Width 18.2 Platelet Count 352 Mean Platelet Volume 9.5 Neutrophils (%) (Auto) 64.1 Lymphocytes (%) (Auto) 20.6 Monocytes (%) (Auto) 10.4 Eosinophils (%) (Auto) 4.2 Basophils (%) (Auto) 0.7 Neutrophils # (Auto) 6.7 Lymphocytes # (Auto) 2.2 Monocytes # (Auto) 1.1 Eosinophils # (Auto) 0.4 Basophils # (Auto) 0.1 CBC Comment DIFF FINAL Differential Comment Prothrombin Time 11.0 Prothromb Time International Ratio 1.0 Activated Partial Thromboplast Time 26.2 Blood Urea Nitrogen 12 Creatinine 1.12 Random Glucose 79 Total Protein 7.7 Albumin 3.3 Calcium Level 8.5 Magnesium Level 1.9 Alkaline Phosphatase 55 Aspartate Amino Transf (AST/SGOT) 18 Alanine Aminotransferase (ALT/SGPT) 16 Total Bilirubin 0.2 Sodium Level 140 Potassium Level 3.7 Chloride Level 104 Carbon Dioxide Level 27.8 Anion Gap 8 Estimat Glomerular Filtration Rate 63 Total Creatine Kinase 170 Creatine Kinase MB 2.0 Troponin I 0.06 B-Type Natriuretic Peptide 301 Date/Time Source Procedure Growth Status 11/12/16 16:41 Blood Peripheral Aerobic Blood Culture Pending Received 11/12/16 16:41 Blood Peripheral Anaerobic Blood Culture Pending Received Result Diagram: 11/12/16 1517 11/12/16 1517 Imaging Last Impressions Chest X-Ray 11/12/16 1506 Signed Impressions: Service Date/Time: Saturday, November 12, 2016 15:30 - CONCLUSION: 1. Right lower lobe infiltrate. 2. Cardiomegaly. MD Faustino Avitia Jr. VTE Risk Assessment Josei VTE Risk Assessment: Mod/High Risk (score >= 2) Caprini Risk Assessment Model Point Value = 1 Point Value = 2 Point Value = 3 Point Value = 5 Age 41-60 Minor surgery BMI > 25 kg/m2 Swollen legs Varicose veins or History of unexplained or recurrent spontaneous Oral contraceptives or hormone replacement Sepsis (< 1 month) Serious lung disease, including pneumonia (< 1 month) Abnormal pulmonary function Acute myocardial infarction Congestive heart failure (< 1 month) History of inflammatory bowel disease Medical patient at bed rest Age 61-74 Arthroscopic surgery Major open surgery (> 45 min) Laparoscopic surgery (> 45 min) Malignancy Confined to bed (> 72 hours) Immobilizing plaster cast Central venous access Age >= 75 History of VTE Family history of VTE Factor V Leiden Prothrombin [id number] Lupus anticoagulant Anticardiolipin antibodies Elevated serum homocysteine Heparin-induced thrombocytopenia Other congenital or acquired thrombophilia Stroke (< 1 month) Elective arthroplasty Hip, pelvis, or leg fracture Acute spinal cord injury (< 1 month) Prophylaxis Regimen Total Risk Factor Score Risk Level Prophylaxis Regimen 0-1 Low Early ambulation 2 Moderate Order ONE of the following: *Sequential Compression Device (SCD) *Heparin 5000 units SQ BID 3-4 Higher Order ONE of the following medications: *Heparin 5000 units SQ TID *Enoxaparin/Lovenox 40 mg SQ daily (WT < 150 kg, CrCl > 30 mL/min) *Enoxaparin/Lovenox 30 mg SQ daily (WT < 150 kg, CrCl > 10-29 mL/min) *Enoxaparin/Lovenox 30 mg SQ BID (WT < 150 kg, CrCl > 30 mL/min) AND/OR *Sequential Compression Device (SCD) 5 or more Highest Order ONE of the following medications: *Heparin 5000 units SQ TID (Preferred with Epidurals) *Enoxaparin/Lovenox 40 mg SQ daily (WT < 150 kg, CrCl > 30 mL/min) *Enoxaparin/Lovenox 30 mg SQ daily (WT < 150 kg, CrCl > 10-29 mL/min) *Enoxaparin/Lovenox 30 mg SQ BID (WT < 150 kg, CrCl > 30 mL/min) AND *Sequential Compression Device (SCD) Assessment and Plan Problem List: (1) Asthma with acute exacerbation in adult ICD Code: J45.901 - Unspecified asthma with (acute) exacerbation Status: Acute (2) Bronchitis ICD Code: J40 - Bronchitis, not specified as acute or chronic Status: Acute (3) Pulmonary infiltrate in right lung on chest x-ray ICD Code: R91.8 - Other nonspecific abnormal finding of lung field Status: Acute (4) Elevated troponin ICD Code: R74.8 - Abnormal levels of other serum enzymes Status: Acute (5) Chest pain ICD Code: R07.9 - Chest pain, unspecified Status: Acute (6) Renal insufficiency ICD Code: N28.9 - Disorder of kidney and ureter, unspecified Status: Acute (7) Dyspnea ICD Code: R06.00 - Dyspnea, unspecified Status: Acute Assessment and Plan COPD/bronchitis/pneumonia with infiltrate continue on DuoNeb's continue on Mucinex continue on oxygen continue on incentive spirometry steroids as needed Right lobe infiltrate continue on antibiotics DuoNeb's Hypertension continue on home medications History of coronary artery disease and congestive heart failure Cardiomegaly per chest x-ray Chest pain with positive troponins consult cardiology Dr. LUGO Renal insufficiency monitor labs a.m. labs Avoid nephrotoxic agents Recommend avoid cocaine and alcohol and tobacco We'll get an echocardiogram and consult cardiology See orders Code Status Full code Discussed Condition With Discussed with emergency room physician, patient, and ER nurse Problem Qualifiers (1) Chest pain: Qualified Codes: R07.1 - Chest pain on breathing (2) Dyspnea: Qualified Codes: R06.00 - Dyspnea, unspecified Zain Bragg DO Nov 12, 2016 17:53
[2016-11-12] MEDS: FUROSEMIDE 40 MG TAB PO SCH (18:45)
[2016-11-12] MEDS: RESP: ALBUTEROL 2.5 MG/IPRATROPIUM 0.5 MG NEB (SCH) INH (19:54)
[2016-11-12] MEDS ORDERED: ENOXAPARIN SODIUM 40 MG/0.4 ML SYRINGE SQ SCH (20:00)
[2016-11-12] MEDS: methylPREDNISolone SOD SUCC 40 MG/1 ML VIAL IV SCH (20:24)
[2016-11-12] MEDS: SODIUM CHLORIDE 0.9% FLUSH 10 ML FLUSH IV FLUSH SCH (20:25)
[2016-11-12] MEDS: guaiFENesin E.R. 600 MG TAB PO SCH (20:25)
[2016-11-12] MEDS: DOCUSATE SODIUM 50 MG/SENNA 8.6 MG TAB PO SCH (20:25)
[2016-11-12] MEDS: BUDESONIDE-FORMOTEROL 160/4.5 MCG INHALER INH SCH (20:33)
[2016-11-12] MEDS ORDERED: ATORVASTATIN 40 MG TAB PO SCH (21:00)
[2016-11-12] MEDS ORDERED: BUDESONIDE-FORMOTEROL 160/4.5 MCG INHALER INH SCH (21:00)
[2016-11-12] MEDS ORDERED: SODIUM CHLORIDE 0.9% FLUSH 10 ML FLUSH IV FLUSH SCH ×2 (21:00)
[2016-11-12 22:24] LABS: CREATINE KINASE 164 U/L (26-192)
[2016-11-12 22:37] LABS: CKMB 1.5 NG/ML (0.5-3.6)
[2016-11-12] MEDS: cloNIDine HCL 0.1 MG TAB PO PRN (22:38)
[2016-11-13] VITALS (17 sets, daily range): BP systolic 139–183; BP diastolic 60–82; PULSE 67–79; RESP 16–18; TEMP 98–98.2; O2SAT 93–99
[2016-11-13] MEDS ORDERED: cloNIDine HCL 0.1 MG TAB PO ONE
[2016-11-13] MEDS: RESP: ALBUTEROL 2.5 MG/IPRATROPIUM 0.5 MG NEB (SCH) INH ×4 (03:37→21:39)
[2016-11-13 04:21] LABS: AUTOMATED NEUTROPHIL # 8.3 TH/MM3 (1.8-7.7); BASOPHIL % 0.3 % (0.0-2.0); EOSINOPHIL % 0.1 % (0.0-4.0); HEMATOCRIT 28.9 % (35.0-46.0); HEMO FLAGS DIFF FINAL; LYMPHOCYTE # 0.6 TH/MM3 (1.0-4.8); MEAN CELL VOLUME 66.6 FL (80.0-100.0); MEAN CORPUSCULAR HEMOGLOBIN 20.4 PG (27.0-34.0); MEAN CORPUSCULAR HGB CONC 30.7 % (32.0-36.0); MONO % 0.7 % (0.0-8.0); NEUT % 91.9 % (16.0-70.0); PLATELET COUNT 326 TH/MM3 (150-450); RED BLOOD COUNT 4.34 MIL/MM3 (4.00-5.30); RED CELL DISTRIBUTION WIDTH 18.3 % (11.6-17.2); WHITE BLOOD COUNT 9.1 TH/MM3 (4.0-11.0)
[2016-11-13 04:59] LABS: ALKALINE PHOSPHATASE 60 U/L (45-117); ALT (GPT) 16 U/L (10-53); ANION GAP 10 MEQ/L (5-15); AST (GOT) 11 U/L (15-37); BICARBONATE 26.1 MEQ/L (21.0-32.0); BLOOD UREA NITROGEN 16 MG/DL (7-18); CHLORIDE 102 MEQ/L (98-107); CREATINE KINASE 150 U/L (26-192); FREE T4 0.91 NG/DL (0.76-1.46); GLOMERULAR FILTRATION RATE 46 ML/MIN (>89); HDL CHOLESTEROL 66.4 MG/DL (40.0-60.0); LDL CHOLESTEROL 84 MG/DL (0-99); MAGNESIUM 1.9 MG/DL (1.5-2.5); POTASSIUM 3.7 MEQ/L (3.5-5.1); SODIUM (NA) 138 MEQ/L (136-145); TOTAL BILIRUBIN ADULT 0.1 MG/DL (0.2-1.0)
[2016-11-13 05:13] LABS: CKMB 1.3 NG/ML (0.5-3.6)
[2016-11-13] MEDS: methylPREDNISolone SOD SUCC 40 MG/1 ML VIAL IV SCH (07:35)
[2016-11-13] MEDS: guaiFENesin E.R. 600 MG TAB PO SCH ×2 (07:37→20:23)
[2016-11-13] MEDS: DOCUSATE SODIUM 50 MG/SENNA 8.6 MG TAB PO SCH ×2 (07:37→20:33)
[2016-11-13] MEDS: SODIUM CHLORIDE 0.9% FLUSH 10 ML FLUSH IV FLUSH SCH ×2 (07:38→20:22)
[2016-11-13] MEDS: BUDESONIDE-FORMOTEROL 160/4.5 MCG INHALER INH SCH ×2 (07:38→20:22)
[2016-11-13] MEDS: FUROSEMIDE 40 MG TAB PO SCH (07:41)
[2016-11-13] MEDS ORDERED: POTASSIUM PHOSPHATE MONOBASIC 500 MG TAB PO ONE (08:30)
[2016-11-13] MEDS ORDERED: amLODIPine BESYLATE 5 MG TAB PO SCH (09:00)
[2016-11-13] MEDS ORDERED: ASPIRIN EC 325 MG TABEC PO SCH (09:00)
[2016-11-13] MEDS ORDERED: amLODIPine BESYLATE 5 MG TAB PO ONE (09:30)
[2016-11-13] MEDS ORDERED: CARVEDILOL 6.25 MG TAB PO SCH (09:45)
--- NOTE | 2016-11-13 10:12 | HHI.PR ---
Subjective Remarks Follow-up for chest pain, shortness of breath. The patient reports her symptoms have improved a lot overnight. She denies any chest pain, chest fluttering, or shortness breath currently. She states she's been feeling poorly for the past few days. She's been having a cough with clear sputum with trace amount of blood. She denies any fevers or chills. She did snort cocaine 4 days ago, and says she wants to avoid using that again. She quit smoking 6 months ago. She was diagnosed with CHF at [facility] a few months ago. She denies any leg swelling. She denies any nausea, vomiting, or diarrhea. She does not currently follow up with her PCP, but plans to establish. Objective Vitals Vital Signs Date Time Temp Pulse Resp B/P (MAP) Pulse Ox O2 Delivery O2 Flow Rate FiO2 11/13/16 09:16 172/72 (105) 11/13/16 08:18 97 21 11/13/16 07:21 98.0 67 16 175/76 (109) 99 11/13/16 03:55 75 11/13/16 03:09 98.1 72 18 154/67 (96) 93 11/13/16 01:21 98.0 68 18 162/70 (100) 95 11/13/16 00:06 69 11/12/16 23:43 98.1 75 18 190/79 (116) 97 11/12/16 20:08 80 11/12/16 19:55 98 11/12/16 19:43 98.2 79 18 180/79 (112) 99 11/12/16 18:48 97.0 88 18 190/84 (119) 94 11/12/16 16:56 100 Nasal Cannula 2.00 11/12/16 15:20 85 24 100 Nasal Cannula 2.00 11/12/16 15:17 100 Nasal Cannula 2.00 11/12/16 15:17 18 100 Nasal Cannula 2.00 11/12/16 14:50 98.7 88 17 177/96 (123) 97 I/O 11/12/16 11/12/16 11/12/16 11/13/16 11/13/16 11/13/16 07:00 15:00 23:00 07:00 15:00 23:00 Intake Total 350 ml 1000 ml Balance 350 ml 1000 ml Intake Oral 1000 ml IV Total 350 ml # Voids 2 Result Diagram: 11/13/16 0346 11/13/16 0346 Imaging Last Impressions Chest X-Ray 11/12/16 1506 Signed Impressions: Service Date/Time: Saturday, November 12, 2016 15:30 - CONCLUSION: 1. Right lower lobe infiltrate. 2. Cardiomegaly. Alexander Akins Jr., MD Objective Remarks GENERAL: Well-developed well-nourished morbidly obese. In no acute distress. SKIN: Warm and dry. No lesions noted. HEENT: Normocephalic. Pupils equal and round. Mucous membranes pink and moist. CARDIOVASCULAR: Regular rate and rhythm. Systolic murmur appreciated. RESPIRATORY: No accessory muscle use. Clear to auscultation. Diminished breath sounds in the bases. No wheezing, crackles, or rhonchi. GASTROINTESTINAL: Abdomen soft, non-tender, nondistended. Bowel sounds x4. MUSCULOSKELETAL: No obvious deformities. No clubbing or cyanosis. No edema. NEUROLOGICAL: Awake and alert. No focal neurological deficits. Moves upper and lower extremities spontaneously. Normal speech. PSYCHIATRIC: Appropriate mood and affect; insight and judgment normal. A/P Problem List: (1) Asthma with acute exacerbation in adult ICD Code: J45.901 - Unspecified asthma with (acute) exacerbation Status: Acute (2) Bronchitis ICD Code: J40 - Bronchitis, not specified as acute or chronic Status: Acute (3) Pulmonary infiltrate in right lung on chest x-ray ICD Code: R91.8 - Other nonspecific abnormal finding of lung field Status: Acute (4) Elevated troponin ICD Code: R74.8 - Abnormal levels of other serum enzymes Status: Acute (5) Chest pain ICD Code: R07.9 - Chest pain, unspecified Status: Acute (6) Renal insufficiency ICD Code: N28.9 - Disorder of kidney and ureter, unspecified Status: Acute (7) Dyspnea ICD Code: R06.00 - Dyspnea, unspecified Status: Acute Assessment and Plan 51-year-old female with a past medical history of asthma, CHF, HTN who presented with chest pain and shortness of breath Chest pain: Possibly secondary to pulmonary infiltrate. Symptoms have improved. Reviewed: EKG with LVH criteria, no ischemic changes. Troponin 0.06, 0.04, 0.02. Liver profile with LDL 84. -Aspirin, beta brady, statin -Cardiology consulted Shortness of breath with pulmonary infiltrate: Pneumonia versus cocaine induced pneumonitis. Also possible asthma exacerbation. Reviewed: Chest image reviewed which showed right lower lobe infiltrate. Afebrile with no leukocytosis. -Change IV antibiotics to oral Levaquin -Continue scheduled and as needed nebs -Supplemental O2 -Taper IV steroids to oral -Symbicort. Guaifenesin. Accelerated hypertension: -Increase home amlodipine -Start carvedilol -Monitor and adjust regimen as needed Acute kidney injury: Creatinine 1.12 at admission, previously 1.01 on 04/28/16. Creatinine increased to 1.46 overnight. Appears euvolemic. -Hold diuretics -Follow up BMP Reported history of CHF: BNP 301. -Start carvedilol -Echocardiogram ordered Hyperglycemia: Possibly due to steroids. -Hemoglobin A1c pending Subacute hypothyroidism: TSH mildly decreased with normal T4. -Possibly reactive secondary to above acute medical processes, follow-up thyroid function labs in 4-6 weeks Cocaine abuse: -Counseled extensively on cessation. DVT prophylaxis: SCDs. Hold Lovenox with minimal hemoptysis. Discharge Planning Follow-up cardiology recommendations. Monitor BP. Follow-up renal function. Likely discharge tomorrow. Problem Qualifiers (1) Chest pain: Qualified Codes: R07.1 - Chest pain on breathing (2) Dyspnea: Qualified Codes: R06.00 - Dyspnea, unspecified Marcin Julio Nov 13, 2016 10:12
[2016-11-13 10:30] LABS: HEMOGLOBIN A1a 1.3 %; HEMOGLOBIN A1b 1.7 %; HEMOGLOBIN LA1C 3.4 %
[2016-11-13] MEDS ORDERED: LEVOFLOXACIN 500 MG TAB PO SCH (11:00)
--- NOTE | 2016-11-13 11:28 | ECHRPT ---
Indication: CHEST PAIN CONCLUSIONS The left ventricular systolic function is mildly reduced with an estimated ejection fraction in the range of 45- 50%. Mild concentric left ventricular hypertrophy. Mildly dilated left ventricle. The right ventricular systoilc function is mildly decreased. Trace mitral valve regurgitation. There is trace tricuspid valve regurgitation. BP: 154 / 67 HR: 72 Rhythm: Sinus MEASUREMENTS (Male / Female) Normal Values Technical Quality:Good 2D ECHO LV Diastolic Diameter PLAX 5.3 cm 4.2 - 5.9 / 3.9 - 5.3 cm LV Systolic Diameter PLAX 4.2 cm IVS Diastolic Thickness 1.3 cm 0.6 - 1.0 / 0.6 - 0.9 cm LVPW Diastolic Thickness 1.6 cm 0.6 - 1.0 / 0.6 - 0.9 cm LV Relative Wall Thickness 0.5 RV Internal Dim ED PLAX 2.2 cm LA Systolic Diameter LX 4.4 cm 3.0 - 4.0 / 2.7 - 3.8 cm M-MODE Aortic Root Diameter MM 2.7 cm AV Cusp Separation MM 2.0 cm DOPPLER AV Peak Velocity 258.5 cm/s AV Peak Gradient 26.7 mmHg AV Mean Gradient 13.0 mmHg AV Velocity Time Integral 49.4 cm LVOT Peak Velocity 114.0 cm/s LVOT Peak Gradient 5.2 mmHg LVOT Velocity Time Integral 21.5 cm Mitral E Point Velocity 137.0 cm/s Mitral A Point Velocity 113.0 cm/s Mitral E to A Ratio 1.2 TR Peak Velocity 242.0 cm/s TR Peak Gradient 23.4 mmHg FINDINGS LEFT VENTRICLE Mildly dilated left ventricle. Mild concentric left ventricular hypertrophy. The left ventricular systolic function is mildly reduced with an estimated ejection fraction in the range of 45- 50%. RIGHT VENTRICLE The right ventricular systoilc function is mildly decreased. LEFT ATRIUM The left atrial size is mildly dilated. RIGHT ATRIUM The right atrial size is normal. ATRIAL SEPTUM Normal atrial septal thickness without atrial level shunting by limited color doppler interrogation. AORTA The aortic root and proximal ascending aorta are normal in size on limited imaging. MITRAL VALVE Structurally normal mitral valve. Trace mitral valve regurgitation. No mitral valve stenosis. AORTIC VALVE Probable trileaflet Trace aortic valve regurgitation. No aortic valve stenosis. TRICUSPID VALVE There is trace tricuspid valve regurgitation. The estimated pulmonary arterial pressure is 33 mmHg. Structurally normal tricuspid valve. PULMONARY VALVE The pulmonary valve is not well visualized. VESSELS The inferior vena cava is normal in size. PERICARDIUM No pericardial effusion. Aman Tariq DO (Electronically Signed) Final Date:13 November 2016 11:26
[2016-11-13] MEDS: cloNIDine HCL 0.1 MG TAB PO PRN (13:01)
[2016-11-13] MEDS ORDERED: cefTRIAXone INJ 1,000 MG in SODIUM CHLORIDE 0.9% INJ 100 ML IV SCH (15:00)
[2016-11-13] MEDS ORDERED: DEXTROSE 50% IN WATER 50 ML VIAL(D50) IV PRN (15:45)
[2016-11-13] MEDS ORDERED: GLUCAGON 1 MG/ML VIAL OTHER PRN (15:45)
[2016-11-13] MEDS ORDERED: AZITHROMYCIN INJ 500 MG in SODIUM CHLOR 0.9% 250 ML INJ 250 ML IV SCH (16:00)
--- NOTE | 2016-11-13 17:00 | EKG ---
Date Performed: 11/12/2016 Time Performed: 15:06:17 PTAGE: 51 years EKG: Sinus rhythm POSSIBLE RIGHT ATRIAL ENLARGEMENT POSSIBLE LEFT ATRIAL ENLARGEMENT POSSIBLE LEFT VENTRICULAR HYPERTR OPHY PROLONGED QT INTERVAL Compared to previous tracing, the patient is no longer in ectopic rhythm A BNORMAL ECG PREVIOUS TRACING : 05/01/16 @ 1527 DOCTOR: Jemima Harris Interpretating Date/Time 11/13/2016 16:59:34
--- NOTE | 2016-11-13 17:01 | EKG ---
Date Performed: 11/13/2016 Time Performed: 03:13:24 PTAGE: 51 years EKG: Sinus rhythm LEFT ATRIAL ENLARGEMENT POSSIBLE LEFT VENTRICULAR HYPERTROPHY PROLONGED QT INTERVAL Compared to prio r tracing no significant change ABNORMAL ECG PREVIOUS TRACING : 11/12/2016 19.58 DOCTOR: Jemima Harris Interpretating Date/Time 11/13/2016 17:00:15
--- NOTE | 2016-11-13 17:01 | EKG ---
Date Performed: 11/12/2016 Time Performed: 19:58:06 PTAGE: 51 years EKG: Sinus rhythm POSSIBLE LEFT ATRIAL ENLARGEMENT POSSIBLE LEFT VENTRICULAR HYPERTROPHY NONSPECIFIC T-WAVE ABNORMALIT Y PROLONGED QT INTERVAL Compared to prior tracing no significant change ABNORMAL ECG PREVIOUS TRACING : 11/12/2016 15.06 DOCTOR: Jemima Harris Interpretating Date/Time 11/13/2016 17:00:00
[2016-11-13] MEDS: INSULIN ASPART SUPPLEMENTAL SCALE SQ SCH ×2 (18:23→20:31)
[2016-11-13] MEDS: predniSONE 20 MG TAB PO SCH (20:23)
[2016-11-13] MEDS ORDERED: ATORVASTATIN 10 MG TAB PO SCH (21:00)
[2016-11-13] MEDS ORDERED: CARVEDILOL 12.5 MG TAB PO SCH (21:00)
--- NOTE | 2016-11-13 21:15 | PD.CONS ---
HPI Consult Requested By cande Ibanez Reason for Consult Chest pain Primary Care Physician No Primary Care Physician History of Present Illness 51-year-old female, no PCP, known to me, presented to ED complaining of chest pain, a fluttering in her chest and left arm, was exacerbated with breathing. No noted relieving factor. Pain is rated 7/10. Now her chest pain has subsided. She was recently admitted to [facility] 06/2016 for chest pain, Echo and Nuclear stress test were unremarkable. LVEF 50%. She still has intermittent chest pain occasionally since She reports a history of CHF. She also states that she uses both an albuterol MDI and an albuterol nebulizer machine at home. She last used her MDI last night and last used her nebulizer machine several days ago. Review of Systems Consitutional: DENIES: Fatigue, Fever, Chills, Weight gain, Weight loss Eyes: DENIES: Amaurosis Fugax, Change in vision HEENT: DENIES: Lightheadedness, Change in hearing Respiratory: COMPLAINS OF: See HPI Cardiovascular: COMPLAINS OF: See HPI Gastrointestinal: DENIES: Nausea, Vomiting, Change in bowel habits, Reflux, Bloody stools, Melena Genitourinary: DENIES: Urinary incontinence, Difficulty voiding Integumentary: DENIES: Rash Neurologic: DENIES: Tingling or numbness, Memory problems, Poor Balance, Stroke symptoms Musculoskeletal: DENIES: Joint pain, Muscle pain, Limited range of motion, Back pain Psychiatric: DENIES: Anxiety, Depression, Sleep disturbances Hematologic: DENIES: Bruising tendencies, Bleeding tendencies Endocrine: DENIES: Weight gain, Weight loss, Thyroid disease Past Family Social History Allergies: Coded Allergies: No Known Allergies (Verified , 10/31/16) Past Medical History CHF, diastolic, COPD, HTN Reported Medications Reported Meds & Active Scripts Active Deltasone (Prednisone) 20 Mg Tab 40 Mg PO DAILY 4 Days start 11/01/2016 Proventil Hfa 6.7 GM Inh (Albuterol Sulfate) 90 Mcg/Act Aer 2 Puff INH Q4-6H PRN Reported Lasix (Furosemide) 40 Mg Tab 40 Mg PO BID Amlodipine (Amlodipine Besylate) 5 Mg Tab 5 Mg PO DAILY Active Ordered Medications Current Medications Medications (Trade) Dose Ordered Sig/Aleyda Route Start Time Stop Time Status Last Admin (Tylenol) 650 mg Q4H PRN PO 11/12/16 16:45 11/13/16 14:57 (Zofran Inj) 4 mg Q6H PRN IVP 11/12/16 16:45 (Compazine Supp) 25 mg Q12H PRN RECTAL 11/12/16 16:45 (Ambien) 5 mg HS PRN PO 11/12/16 16:45 (Tylenol) 650 mg Q6H PRN PO 11/12/16 16:45 (Percocet 5-325 Mg) 1 tab Q6H PRN PO 11/12/16 16:45 (Percocet 10-325 Mg) 1 tab Q6H PRN PO 11/12/16 16:45 11/12/16 21:53 (Morphine Inj) 2 mg Q3H PRN IV 11/12/16 16:45 (Morphine Inj) 4 mg Q3H PRN IV 11/12/16 16:45 (Narcan Inj) 0.4 mg UNSCH PRN IV 11/12/16 16:45 (Judit-Colace) 1 tab BID PO 11/12/16 21:00 11/13/16 07:37 (Milk Of Magnesia Liq) 30 ml Q12H PRN PO 11/12/16 16:45 (Senokot) 17.2 mg Q12H PRN PO 11/12/16 16:45 (Dulcolax Supp) 10 mg DAILY PRN RECTAL 11/12/16 16:45 (Lactulose Liq) 30 ml DAILY PRN PO 11/12/16 16:45 11/13/16 15:49 (Duoneb Neb) 1 ampule Q6HR NEB INH 11/12/16 22:00 11/13/16 08:18 (Duoneb Neb) 1 ampule Q4HR NEB PRN INH 11/12/16 16:45 (NS Flush) 2 ml BID IV FLUSH 11/12/16 21:00 11/13/16 20:22 (NS Flush) 2 ml UNSCH PRN IV FLUSH 11/12/16 16:45 (Nitroglycerin 2% Oint) 1 inch Q6HR PRN TOP 11/12/16 16:45 (Nitrostat Sl) 0.4 mg Q5M PRN SL 11/12/16 16:45 (Xanax) 0.25 mg Q8H PRN PO 11/12/16 16:45 (Lasix) 40 mg BID@0900,1800 PO 11/12/16 18:00 Future Hold 11/13/16 07:41 (Mucinex Er) 600 mg BID PO 11/12/16 21:00 11/13/16 20:23 (Symbicort 160-4.5 Inh) 2 puff Q12HR INH 11/12/16 21:00 11/13/16 20:22 (Catapres) 0.1 mg Q6H PRN PO 11/12/16 19:45 11/13/16 13:01 (Norvasc) 10 mg DAILY PO 11/14/16 09:00 (Aspirin Chew) 81 mg DAILY CHEW 11/14/16 09:00 (Deltasone) 20 mg BID PO 11/13/16 21:00 11/13/16 20:23 (Lipitor) 10 mg HS PO 11/13/16 21:00 11/13/16 20:23 (Levaquin) 250 mg Q24H PO 11/14/16 11:00 (D50w (Vial) Inj) 50 ml UNSCH PRN IV 11/13/16 15:45 (Glucagon Inj) 1 mg UNSCH PRN OTHER 11/13/16 15:45 (NovoLOG SUPPLEMENTAL SCALE) 1 ACHS SLIDING SCALE SQ 11/13/16 16:00 11/13/16 20:31 (Coreg) 12.5 mg Q12HR PO 11/13/16 21:00 11/13/16 20:23 Social History single, smoker, rare alcohol drinking. Physical Exam Vital Signs Vital Signs Date Time Temp Pulse Resp B/P (MAP) Pulse Ox O2 Delivery O2 Flow Rate FiO2 11/13/16 20:12 98.2 79 18 141/60 (87) 98 11/13/16 15:54 18 11/13/16 15:32 98.2 79 16 152/66 (94) 98 11/13/16 14:53 139/65 (89) 11/13/16 13:51 176/82 (113) 11/13/16 12:49 98.0 76 16 181/80 (113) 95 11/13/16 12:06 160/78 (105) 11/13/16 11:01 183/80 (114) 11/13/16 09:16 172/72 (105) 11/13/16 08:18 97 21 11/13/16 08:00 71 11/13/16 07:21 98.0 67 16 175/76 (109) 99 11/13/16 03:55 75 11/13/16 03:09 98.1 72 18 154/67 (96) 93 11/13/16 01:21 98.0 68 18 162/70 (100) 95 11/13/16 00:06 69 11/12/16 23:43 98.1 75 18 190/79 (116) 97 Physical Exam GENERAL: AAOx3 morbidly obese. In no acute distress. SKIN: Warm and dry. No lesions noted. HEENT: Normocephalic. Pupils equal and round. Mucous membranes pink and moist. CARDIOVASCULAR: Regular rate and rhythm. Systolic murmur appreciated. RESPIRATORY: No accessory muscle use. Clear to auscultation. Diminished breath sounds in the bases. No wheezing, crackles, or rhonchi. GASTROINTESTINAL: Abdomen soft, non-tender, nondistended. Bowel sounds x4. MUSCULOSKELETAL: No obvious deformities. No clubbing or cyanosis. No edema. NEUROLOGICAL: Awake and alert. No focal neurological deficits. Moves upper and lower extremities spontaneously. Normal speech. PSYCHIATRIC: Appropriate mood and affect; insight and judgment normal. Laboratory Laboratory Tests Test 11/13/16 03:46 White Blood Count 9.1 Red Blood Count 4.34 Hemoglobin 8.9 Hematocrit 28.9 Mean Corpuscular Volume 66.6 Mean Corpuscular Hemoglobin 20.4 Mean Corpuscular Hemoglobin Concent 30.7 Red Cell Distribution Width 18.3 Platelet Count 326 Mean Platelet Volume 9.5 Neutrophils (%) (Auto) 91.9 Lymphocytes (%) (Auto) 7.0 Monocytes (%) (Auto) 0.7 Eosinophils (%) (Auto) 0.1 Basophils (%) (Auto) 0.3 Neutrophils # (Auto) 8.3 Lymphocytes # (Auto) 0.6 Monocytes # (Auto) 0.1 Eosinophils # (Auto) 0.0 Basophils # (Auto) 0.0 CBC Comment DIFF FINAL Differential Comment Blood Urea Nitrogen 16 Creatinine 1.46 Random Glucose 290 Total Protein 7.5 Albumin 3.1 Calcium Level 8.6 Phosphorus Level 1.8 Magnesium Level 1.9 Alkaline Phosphatase 60 Aspartate Amino Transf (AST/SGOT) 11 Alanine Aminotransferase (ALT/SGPT) 16 Total Bilirubin 0.1 Sodium Level 138 Potassium Level 3.7 Chloride Level 102 Carbon Dioxide Level 26.1 Anion Gap 10 Estimat Glomerular Filtration Rate 46 Hemoglobin A1c 6.0 Total Creatine Kinase 150 Creatine Kinase MB 1.3 Troponin I 0.02 Triglycerides Level 73 Cholesterol Level 165 LDL Cholesterol 84 HDL Cholesterol 66.4 Cholesterol/HDL Ratio 2.48 Free Thyroxine 0.91 Thyroid Stimulating Hormone 3rd Gen 0.237 Date/Time Source Procedure Growth Status 11/12/16 16:41 Blood Peripheral Aerobic Blood Culture - Preliminary NO GROWTH IN 1 DAY Resulted 11/12/16 16:41 Blood Peripheral Anaerobic Blood Culture - Preliminary NO GROWTH IN 1 DAY Resulted Result Diagram: 11/13/16 0346 11/13/16 0346 Assessment and Plan Problem List: (1) Chest pain ICD Codes: R07.9 - Chest pain, unspecified Status: Acute Plan: So far negative ECG and series troponin for acute ischemia heart disease. Chest pain has subsided. Negative stress test in 06/2016 OK to discharge home from cardiology standpoint. Follow up in my office in 1 week. May need to arrange outpatient LHC. (2) Dyspnea ICD Codes: R06.00 - Dyspnea, unspecified Status: Acute Problem Qualifiers (1) Chest pain: Qualified Codes: R07.9 - Chest pain, unspecified (2) Dyspnea: Qualified Codes: R06.00 - Dyspnea, unspecified Wing Gardenia Arvizu MD Nov 13, 2016 21:15
[2016-11-14 00:19] VITALS: BP 184/84; PULSE 71; RESP 18; TEMP 98.2; O2SAT 96
[2016-11-14 04:24] VITALS: BP 168/74; PULSE 70; RESP 18; TEMP 98.1; O2SAT 96
[2016-11-14] MEDS: RESP: ALBUTEROL 2.5 MG/IPRATROPIUM 0.5 MG NEB (SCH) INH ×2 (04:24→08:09)
[2016-11-14] MEDS: INSULIN ASPART SUPPLEMENTAL SCALE SQ SCH ×2 (07:00→11:00)
[2016-11-14 07:16] VITALS: BP 171/70; PULSE 76; RESP 16; TEMP 98.3; O2SAT 98
[2016-11-14 08:10] VITALS: O2SAT 98
[2016-11-14] MEDS: DOCUSATE SODIUM 50 MG/SENNA 8.6 MG TAB PO SCH (08:31)
[2016-11-14] MEDS: guaiFENesin E.R. 600 MG TAB PO SCH (08:31)
[2016-11-14] MEDS: SODIUM CHLORIDE 0.9% FLUSH 10 ML FLUSH IV FLUSH SCH (08:34)
[2016-11-14] MEDS: BUDESONIDE-FORMOTEROL 160/4.5 MCG INHALER INH SCH (08:35)
[2016-11-14 08:50] LABS: BICARBONATE 25.9 MEQ/L (21.0-32.0)
[2016-11-14] MEDS ORDERED: ASPIRIN 81 MG CHEW TAB CHEW SCH (09:00)
[2016-11-14] MEDS ORDERED: CARVEDILOL 12.5 MG TAB PO SCH (09:00)
[2016-11-14] MEDS ORDERED: LISINOPRIL 10 MG TAB PO SCH (09:15)
--- NOTE | 2016-11-14 10:22 | HHI.PR ---
Subjective Remarks Follow-up for chest pain, shortness of breath. Patient is feeling well and has no acute complaints today. Denies any further chest pain or shortness of breath. She was seen by diabetic education today and plans to work on diet and weight loss. Objective Vitals Vital Signs Date Time Temp Pulse Resp B/P (MAP) Pulse Ox O2 Delivery O2 Flow Rate FiO2 11/14/16 08:10 98 21 11/14/16 07:16 98.3 76 16 171/70 (103) 98 11/14/16 04:24 98.1 70 18 168/74 (105) 96 11/14/16 00:19 98.2 71 18 184/84 (117) 96 11/13/16 21:50 73 11/13/16 21:41 99 21 11/13/16 20:12 98.2 79 18 141/60 (87) 98 11/13/16 15:54 18 11/13/16 15:32 98.2 79 16 152/66 (94) 98 11/13/16 14:53 139/65 (89) 11/13/16 13:51 176/82 (113) 11/13/16 12:49 98.0 76 16 181/80 (113) 95 11/13/16 12:06 160/78 (105) 11/13/16 11:01 183/80 (114) I/O 11/13/16 11/13/16 11/13/16 11/14/16 11/14/16 11/14/16 06:59 14:59 22:59 06:59 14:59 22:59 Intake Total 1000 ml 960 ml Balance 1000 ml 960 ml Intake Oral 1000 ml 960 ml # Voids 2 8 Result Diagram: 11/13/16 0346 11/14/16 0634 Objective Remarks GENERAL: Well-developed well-nourished morbidly obese. In no acute distress. SKIN: Warm and dry. No lesions noted. HEENT: Normocephalic. Pupils equal and round. Mucous membranes pink and moist. CARDIOVASCULAR: Regular rate and rhythm. Systolic murmur appreciated. RESPIRATORY: No accessory muscle use. Clear to auscultation. Improved breath sounds today especially in the bases. GASTROINTESTINAL: Abdomen soft, non-tender, nondistended. Bowel sounds x4. MUSCULOSKELETAL: No obvious deformities. No clubbing or cyanosis. Trace edema. NEUROLOGICAL: Awake and alert. No focal neurological deficits. Moves upper and lower extremities spontaneously. Normal speech. PSYCHIATRIC: Appropriate mood and affect; insight and judgment normal. A/P Problem List: (1) Asthma with acute exacerbation in adult ICD Code: J45.901 - Unspecified asthma with (acute) exacerbation Status: Acute (2) Bronchitis ICD Code: J40 - Bronchitis, not specified as acute or chronic Status: Acute (3) Pulmonary infiltrate in right lung on chest x-ray ICD Code: R91.8 - Other nonspecific abnormal finding of lung field Status: Acute (4) Elevated troponin ICD Code: R74.8 - Abnormal levels of other serum enzymes Status: Acute (5) Chest pain ICD Code: R07.9 - Chest pain, unspecified Status: Resolved (6) Renal insufficiency ICD Code: N28.9 - Disorder of kidney and ureter, unspecified Status: Resolved (7) Dyspnea ICD Code: R06.00 - Dyspnea, unspecified Status: Resolved Assessment and Plan 51-year-old female with a past medical history of asthma, CHF, HTN who presented with chest pain and shortness of breath Chest pain: Possibly secondary to pulmonary infiltrate. Symptoms have improved. Reviewed: EKG with LVH criteria, no ischemic changes. Troponin 0.06, 0.04, 0.02. Lipid profile with LDL 84. -Aspirin, beta brady, statin -Cardiology consulted, cleared for outpatient follow-up Shortness of breath with pulmonary infiltrate: Pneumonia vs cocaine induced pneumonitis. Also possible asthma exacerbation. Symptoms improved. Reviewed: Chest image reviewed which showed right lower lobe infiltrate. Afebrile with no leukocytosis. -Continue oral Levaquin -Continue scheduled and as needed nebs -Supplemental O2 -Short course of oral steroids -Symbicort. Guaifenesin. Accelerated hypertension: BP remains uncontrolled. -Increased home amlodipine -Started carvedilol, dose uptitrated -Start lisinopril -Monitor and adjust regimen as needed Acute kidney injury: Creatinine increased up to 1.46, baseline around 1. Held diuretics and creatinine improved to 1.00. -Resume furosemide, decrease dose to once daily Systolic CHF: BNP 301. Echo shows EF 4550 % with mild LVH. -Started carvedilol and lisinopril -Cardiology as above Borderline diabetes mellitus with hyperglycemia from steroids: Hemoglobin A1c 6.0. -Educated on lifestyle modifications -Diabetic education and dietitian consult -Emphasized PCP follow-up Subacute hypothyroidism: TSH mildly decreased with normal T4. -Possibly reactive secondary to above acute medical processes, follow-up thyroid function labs in 4-6 weeks Cocaine abuse: -Counseled extensively on cessation. DVT prophylaxis: SCDs. Discharge Planning Patient is clinically improved and stable. Discharge planning later today when blood pressure is better controlled. Problem Qualifiers (1) Chest pain: Qualified Codes: R07.9 - Chest pain, unspecified (2) Dyspnea: Qualified Codes: R06.00 - Dyspnea, unspecified Marcin Julio Nov 14, 2016 10:22
[2016-11-14] MEDS ORDERED: LEVOFLOXACIN 250 MG TAB PO SCH (11:00)
[2016-11-14 11:27] VITALS: BP 159/75; PULSE 72; RESP 16; TEMP 98.7; O2SAT 100
[2016-11-14] MEDS ORDERED: FURO1TAB60 PO (12:08)
[2016-11-14] MEDS ORDERED: CARV12.5 PO (12:08)
[2016-11-14] MEDS ORDERED: LISI-519 PO (12:08)
[2016-11-14] MEDS ORDERED: PRED20 PO (12:08)
[2016-11-14] MEDS ORDERED: LEVO500T8 PO (12:08)
[2016-11-14] MEDS ORDERED: AMLO10 PO (12:08)
[2016-11-14] MEDS ORDERED: LIPI10TA PO (12:08)
[2016-11-14] MEDS ORDERED: ASPI81CH25 CHEW (12:08)
[2016-11-14] MEDS: predniSONE 20 MG TAB PO SCH (12:54)
[2016-11-14 14:25] VITALS: BP 155/70; PULSE 74; RESP 16; TEMP 98.6; O2SAT 99
== END 2016-11-14 16:26 | disposition home or self-care (01) ==
LOC: NEPC 14:49 → NEDA 16:40 → NEPHCDU 18:01
PROVIDERS: ADMIT Family Medicine; ATTEND Family Medicine
DX: J40 Bronchitis, not specified as acute or chronic (principal); J45.901 Unspecified asthma with (acute) exacerbation; R07.89 Other chest pain; R06.00 Dyspnea, unspecified; R73.9 Hyperglycemia, unspecified; R91.8 Other nonspecific abnormal finding of lung field; I50.42 Chronic combined systolic (congestive) and diastolic (congestive) heart failure; I11.0 Hypertensive heart disease with heart failure; I25.10 Atherosclerotic heart disease of native coronary artery without angina pectoris; N17.9 Acute kidney failure, unspecified; R74.8 Abnormal levels of other serum enzymes
CPT/HCPCS: 71010; 80048; 80053; 80061; 82550; 82552; 82948; 83036; 83735; 83880; 84100; 84439; 84443; 84484; 85025; 85610; 85730; 87040; 93005; 93306; 94150; 94640; 94664; 96365; 96366; 96372; 96375; 96376; 99285; G0378; J0456; J0696; J1650; J1815; J2920; J7050; J7512

== ENCOUNTER 2017-01-01 15:49 | Emergency (ER) | payer OTHER ==
[~2017-01-01] VITALS: Ht 160 cm; Wt 115.0 kg
[~2017-01-01 15:49] MED LIST changes: +AMLO10 PO; +ASPI81CH25 CHEW; -AZIT500T2 PO; +CARV12.5 PO; +FURO1TAB60 PO; +LEVO500T8 PO; +LIPI10TA PO; +LISI-519 PO; -PRED-503 PO; +PRED20 PO
[2017-01-01 15:51] VITALS: BP 193/76; PULSE 80; RESP 18; TEMP 98.8; O2SAT 98
[2017-01-01 16:02] VITALS: BP 137/64; PULSE 78
[2017-01-01] MEDS ORDERED: predniSONE 20 MG TAB PO ONE (17:15)
[2017-01-01] MEDS ORDERED: RESP: ALBUTEROL 2.5 MG/IPRATROPIUM 0.5 MG NEB (SCH) INH ONE (17:15)
[2017-01-01] MEDS ORDERED: VENTAER INH (17:23)
[2017-01-01] MEDS ORDERED: PRED-503 PO (17:23)
--- NOTE | 2017-01-01 17:23 | PD ---
HPI Chief Complaint: Cold / Flu Symptoms Time Seen by Provider: 17:10 Travel History International Travel<30 days: No Contact w/Intl Traveler<30days: No Traveled to known affect area: No History of Present Illness HPI 51-year-old female presents to the emergency Department with complaint of nasal congestion that started yesterday and exacerbating her asthma with shortness of breath, chest tightness, wheezing. Last used her albuterol inhaler last night with good relief. Denies ear pain, sore throat. Reports occasional cough. Denies fevers, vomiting. Has not used any other medications to alleviate her symptoms. No known aggravating factors. Symptoms are mild in severity. No known allergies. Has no medical complaints. No other modifying factors or associated signs and symptoms. PFSH Past Medical History Asthma: Yes Cardiovascular Problems: Yes High Cholesterol: Yes Chest Pain: Yes Congestive Heart Failure: Yes Diminished Hearing: No Hypertension: Yes Respiratory: Yes (ASTHMA) ?: Not LMP: 12/19/16 : 2 Para: 2 Social History Alcohol Use: Yes (on occasion) Tobacco Use: No (quit March 2016, smoke 1 ppd for 20yrs) Substance Use: Yes (hx of coccaine use last used 11-06-16) Allergies-Medications (Allergen,Severity, Reaction): Coded Allergies: No Known Allergies (Verified , 01/01/17) Reported Meds & Prescriptions Reported Meds & Active Scripts Active Deltasone (Prednisone) 20 Mg Tab 40 Mg PO DAILY 4 Days start 01/02/2017 Ventolin Hfa 18 GM Inh (Albuterol Sulfate) 90 Mcg/Act Aer 2 Puff INH Q4-6H PRN Norvasc (Amlodipine Besylate) 10 Mg Tab 10 Mg PO DAILY Aspirin Low Strength (Aspirin) 81 Mg Chew 81 Mg CHEW DAILY Proventil Hfa 6.7 GM Inh (Albuterol Sulfate) 90 Mcg/Act Aer 2 Puff INH Q4-6H PRN Review of Systems Except as stated in HPI: all other systems reviewed are Neg Physical Exam Narrative GENERAL: Well-nourished, well-developed black female patient, in no acute distress; afebrile, nontoxic-appearing SKIN: Warm and dry. HEAD: Atraumatic. Normocephalic. EYES: Pupils equal and round. No scleral icterus. No injection or drainage. ENT: Mucosa pink and moist. No erythema or exudates. No uvular edema. No uvular , palatal, or tonsillar deviation. Airway patent. Nares without nasal blood, purulent drainage or septal hematoma. EARS: Bilateral pinnae and external canals appear within normal limits. Bilateral tympanic membranes without erythema, dullness or perforation. NECK: Trachea midline. No lymphadenopathy. CARDIOVASCULAR: Regular rate and rhythm. No murmur appreciated. RESPIRATORY: No accessory muscle use. Lungs with minimal wheezing and decreased lung sounds throughout. Breath sounds equal bilaterally. No retractions or tachypnea. No Audible wheezing noted. GASTROINTESTINAL: Obese. MUSCULOSKELETAL: No obvious deformities. No clubbing. No cyanosis. No edema. NEUROLOGICAL: Awake and alert. Oriented 3. No obvious cranial nerve deficits. Motor grossly within normal limits. Normal speech. Moves all extremities. 5/5 strength to all extremities. PSYCHIATRIC: Appropriate mood and affect; insight and judgment normal. Data Data Last Documented VS Vital Signs Date Time Temp Pulse Resp B/P (MAP) Pulse Ox O2 Delivery O2 Flow Rate FiO2 01/01/17 16:02 78 137/64 (88) 01/01/17 15:51 98.8 18 98 Room Air Orders Orders Prednisone (Deltasone) (01/01/17 17:15) Albuterol-Ipratropium Neb (Duoneb Neb) (01/01/17 17:15) Ed Discharge Order (01/01/17 17:50) [facility] Medical Decision Making Medical Screen Exam Complete: Yes Emergency Medical Condition: Yes Medical Record Reviewed: Yes Differential Diagnosis Viral illness, asthma exacerbation, bronchitis, URI Narrative Course 51-year-old female, history of asthma, physical examination consistent with viral illness and asthma exacerbation. Patient is afebrile and nontoxic- appearing. Denies fever, vomiting. In no acute distress without retractions or tachypnea. DuoNeb and Deltasone ordered. She reports improvement in symptoms after breathing treatment. Denies chest tightness, shortness of breath. Ventolin inhaler and Deltasone prescribed for home. Instructed patient to follow up with primary care provider. Patient verbalizes understanding and agreement with treatment plan. Patient is medically cleared and stable for discharge. Discussed reasons to return to the emergency department. Patient agrees with treatment plan. The patients vital signs are stable and the patient is stable for outpatient follow-up and treatment. Patient discharged home, stable and in no acute distress. Diagnosis Primary Impression: Viral illness Additional Impression: Asthma exacerbation Qualified Codes: J45.901 - Unspecified asthma with (acute) exacerbation Referrals: [facility] Primary Care Physician Patient Instructions: Asthma (ED), Cold Symptoms (ED), General Instructions, Safe Use of Cough and Cold Medicines (ED) Departure Forms: Tests/Procedures, Work Release Enter return to work date: Jan 03, 2017 Additional Instructions: Use Albuterol inhaler as prescribed Take oral steroids as prescribed and complete full course [id number] decongestants or antihistamines as directed and as needed for symptom management Drink plenty of fluids to prevent dehydration Use hot air humidifier to decrease cough exacerbation Turn off ceiling fans and sleep with head of bed elevated Avoid triggers such as second hand smoke, dust, known allergens Follow-up with your primary care provider Return to the emergency department immediately with worsening of symptoms Med/Other Pt SpecificInfo: Prescription(s) given Scripts Prednisone (Deltasone) 20 Mg Tab 40 MG PO DAILY for 4 Days, #8 TAB 0 Refills start 01/02/2017 Prov: Sandra Pedro 01/01/17 Albuterol 18 GM Inh (Ventolin Hfa 18 GM Inh) 90 Mcg/Act Aer 2 PUFF INH Q4-6H Y for SOB/WHEEZING, #1 INHALER 0 Refills Prov: Sandra Pedro 01/01/17 Disposition: 01 DISCHARGE HOME Condition: Stable Sandra Pedro Jan 01, 2017 17:23
== END 2017-01-01 18:44 | disposition home or self-care (01) ==
LOC: NEPK 15:49
DX: B34.9 Viral infection, unspecified (principal); J45.901 Unspecified asthma with (acute) exacerbation; I11.0 Hypertensive heart disease with heart failure
CPT/HCPCS: 94664; 99284

== ENCOUNTER 2017-03-27 13:35 | Observation (INO) | payer OTHER ==
[~2017-03-27] VITALS: Ht 160 cm; Wt 120.6 kg
[~2017-03-27 13:35] MED LIST changes: -CARV12.5 PO; -FURO1TAB60 PO; -LEVO500T8 PO; -LIPI10TA PO; -LISI-519 PO; +PRED-503 PO; -PRED20 PO; +VENTAER INH
[2017-03-27 13:36] VITALS: BP 131/61; PULSE 96; RESP 20; TEMP 102.5; O2SAT 94
--- NOTE | 2017-03-27 14:20 | RADRPT ---
EXAM DATE/TIME: 03/27/2017 14:06 [place] COMPARISON: No previous studies available for comparison. INDICATIONS : Short of breath MEDICAL HISTORY : Congestive heart failure. Chronic obstructive pulmonary disease. SURGICAL HISTORY : None. ENCOUNTER: Initial ACUITY: 2 days PAIN SCORE: 0/10 LOCATION: chest FINDINGS: PA and lateral views of the chest demonstrate the lungs to be symmetrically aerated without evidence of mass, infiltrate or effusion. The heart size is mildly prominent with no definite perihilar edema . Osseous structures are intact. CONCLUSION: The heart size appears mildly prominent with no definite perihilar edema. Rodriguez Bird MD on March 27, 2017 at 14:17 Board Certified Radiologist. This report was verified electronically.
[2017-03-27] MEDS ORDERED: ACETAMINOPHEN 325 MG TAB PO ONE (14:30)
[2017-03-27 14:52] LABS: AUTOMATED NEUTROPHIL # 2.6 TH/MM3 (1.8-7.7); EOSINOPHIL % 0.1 % (0.0-4.0); HEMATOCRIT 28.1 % (35.0-46.0); HEMOGLOBIN 8.4 GM/DL (11.6-15.3); LYMPHOCYTE # 0.9 TH/MM3 (1.0-4.8); MEAN CELL VOLUME 61.2 FL (80.0-100.0); MEAN CORPUSCULAR HEMOGLOBIN 18.4 PG (27.0-34.0); MEAN CORPUSCULAR HGB CONC 30.1 % (32.0-36.0); MEAN PLATELET VOLUME 9.1 FL (7.0-11.0); MONOCYTE # 1.1 TH/MM3 (0-0.9); NEUT % 56.9 % (16.0-70.0); PLATELET COUNT 324 TH/MM3 (150-450); RED BLOOD COUNT 4.59 MIL/MM3 (4.00-5.30); RED CELL DISTRIBUTION WIDTH 20.4 % (11.6-17.2); WHITE BLOOD COUNT 4.6 TH/MM3 (4.0-11.0)
[2017-03-27 15:06] LABS: ALBUMIN 3.2 GM/DL (3.4-5.0); AST (GOT) 44 U/L (15-37); BICARBONATE 28.9 MEQ/L (21.0-32.0); BLOOD UREA NITROGEN 16 MG/DL (7-18); CALCIUM 7.9 MG/DL (8.5-10.1); CHLORIDE 98 MEQ/L (98-107); CREATININE 1.41 MG/DL (0.50-1.00); GLOMERULAR FILTRATION RATE 48 ML/MIN (>89); GLUCOSE,RANDOM 94 MG/DL (74-106); SODIUM (NA) 135 MEQ/L (136-145)
[2017-03-27 15:20] LABS: ALKALINE PHOSPHATASE 60 U/L (45-117); ALT (GPT) 31 U/L (10-53); INTERNATIONAL NORMALIZED RATIO 1.2 RATIO; TOTAL BILIRUBIN ADULT 0.2 MG/DL (0.2-1.0); TOTAL PROTEIN 7.5 GM/DL (6.4-8.2)
--- NOTE | 2017-03-27 15:38 | PD ---
HPI Chief Complaint: Fever Time Seen by Provider: 15:35 Travel History International Travel<30 days: No Contact w/Intl Traveler<30days: No Traveled to known affect area: No History of Present Illness HPI 51-year-old female came to the emergency room with history of fever, nausea, vomiting and diarrhea for past 2-3 days. In triage she had a temperature 102.5 in triage. There was workup for fever initiated in triage. Patient is also complaining of cough and shortness of breath. She does have underlying history of congestive heart failure and cardiomyopathy. Patient did not receive her flu shot last winter. [facility] Past Medical History Narrative Medical List of her past medical, surgical, social and family history is reviewed from the nursing note. Asthma: Yes Cardiovascular Problems: Yes (CHF, HTN, hyperlipidemia) High Cholesterol: Yes Chest Pain: Yes Congestive Heart Failure: Yes Diminished Hearing: No Hypertension: Yes Respiratory: Yes (COPD) : 2 Para: 2 Social History Alcohol Use: Yes (on occasion) Tobacco Use: No (quit March 2016, smoke 1 ppd for 20yrs) Substance Use: Yes (hx of coccaine use last used 11-06-16) Allergies-Medications (Allergen,Severity, Reaction): Coded Allergies: lisinopril (Verified Allergy, Severe, 03/27/17) Comments List of the allergies reviewed from the nursing note. Reported Meds & Prescriptions Reported Meds & Active Scripts Active Ventolin Hfa 18 GM Inh (Albuterol Sulfate) 90 Mcg/Act Aer 2 Puff INH Q4-6H PRN Norvasc (Amlodipine Besylate) 10 Mg Tab 10 Mg PO DAILY Aspirin Low Strength (Aspirin) 81 Mg Chew 81 Mg CHEW DAILY Reported Bumetanide 0.5 Mg Tab 0.5 Mg PO DAILY Narrative Medication List of her home medications reviewed from the nursing note. Review of Systems Except as stated in HPI: all other systems reviewed are Neg General / Constitutional: Positive: Fever, Chills Gastrointestinal: Positive: Nausea, Vomiting, Diarrhea Physical Exam Narrative GENERAL: Awake, alert, moderate distress SKIN: Focused skin assessment warm/dry. HEAD: Atraumatic. Normocephalic. EYES: Pupils equal and round. No scleral icterus. No injection or drainage. ENT: No nasal bleeding or discharge. Mucous membranes pink and moist. NECK: Trachea midline. No JVD. CARDIOVASCULAR: Regular rate and rhythm. No murmur appreciated. RESPIRATORY: No accessory muscle use. Right-sided base coarse crackles GASTROINTESTINAL: Abdomen soft, non-tender, nondistended. Hepatic and splenic margins not palpable. MUSCULOSKELETAL: No obvious deformities. No clubbing. No cyanosis. No edema. NEUROLOGICAL: Awake and alert. No obvious cranial nerve deficits. Motor grossly within normal limits. Normal speech. PSYCHIATRIC: Appropriate mood and affect; insight and judgment normal. Data Data Last Documented VS Vital Signs Date Time Temp Pulse Resp B/P (MAP) Pulse Ox O2 Delivery O2 Flow Rate FiO2 03/27/17 13:36 102.5 96 20 131/61 (84) 94 Room Air Orders Orders Sepsis Workup Initiated (03/27/17 ) Electrocardiogram (03/27/17 13:49) Complete Blood Count With Diff (03/27/17 13:49) Comprehensive Metabolic Panel (03/27/17 13:49) Prothrombin Time / Inr (Pt) (03/27/17 13:49) Act Partial Throm Time (Ptt) (03/27/17 13:49) Lactic Acid Sepsis Protocol (03/27/17 13:49) Magnesium (Mg) (03/27/17 13:49) Ckmb (Isoenzyme) Profile (03/27/17 13:49) Troponin I (03/27/17 13:49) Influenzae A/B Antigen (03/27/17 13:49) Chest, Pa & Lat (03/27/17 13:49) Acetaminophen (Tylenol) (03/27/17 14:30) CKMB (03/27/17 14:25) CKMB% (03/27/17 14:25) Drug Screen, Random Urine (03/27/17 15:38) Urinalysis - C+S If Indicated (03/27/17 15:41) Oseltamivir (Tamiflu) (03/27/17 16:00) Admit Order (Ed Use Only) (03/27/17 16:58) Labs Laboratory Tests Test 03/27/17 14:25 03/27/17 16:25 White Blood Count 4.6 TH/MM3 Red Blood Count 4.59 MIL/MM3 Hemoglobin 8.4 GM/DL Hematocrit 28.1 % Mean Corpuscular Volume 61.2 FL Mean Corpuscular Hemoglobin 18.4 PG Mean Corpuscular Hemoglobin Concent 30.1 % Red Cell Distribution Width 20.4 % Platelet Count 324 TH/MM3 Mean Platelet Volume 9.1 FL Neutrophils (%) (Auto) 56.9 % Lymphocytes (%) (Auto) 19.0 % Monocytes (%) (Auto) 23.0 % Eosinophils (%) (Auto) 0.1 % Basophils (%) (Auto) 1.0 % Neutrophils # (Auto) 2.6 TH/MM3 Lymphocytes # (Auto) 0.9 TH/MM3 Monocytes # (Auto) 1.1 TH/MM3 Eosinophils # (Auto) 0.0 TH/MM3 Basophils # (Auto) 0.0 TH/MM3 CBC Comment DIFF FINAL Differential Comment Prothrombin Time 12.0 SEC Prothromb Time International Ratio 1.2 RATIO Activated Partial Thromboplast Time 28.0 SEC Blood Urea Nitrogen 16 MG/DL Creatinine 1.41 MG/DL Random Glucose 94 MG/DL Total Protein 7.5 GM/DL Albumin 3.2 GM/DL Calcium Level 7.9 MG/DL Magnesium Level 2.0 MG/DL Alkaline Phosphatase 60 U/L Aspartate Amino Transf (AST/SGOT) 44 U/L Alanine Aminotransferase (ALT/SGPT) 31 U/L Total Bilirubin 0.2 MG/DL Sodium Level 135 MEQ/L Potassium Level 3.3 MEQ/L Chloride Level 98 MEQ/L Carbon Dioxide Level 28.9 MEQ/L Anion Gap 8 MEQ/L Estimat Glomerular Filtration Rate 48 ML/MIN Lactic Acid Level 0.8 mmol/L Total Creatine Kinase 1096 U/L Creatine Kinase MB 0.8 NG/ML Creatine Kinase MB % 0.1 % Troponin I 0.10 NG/ML Urine Color YELLOW Urine Turbidity CLOUDY Urine pH 6.0 Urine Specific Marissa 1.023 Urine Protein 300 mg/dL Urine Glucose (UA) NEG mg/dL Urine Ketones NEG mg/dL Urine Occult Blood SMALL Urine Nitrite NEG Urine Bilirubin NEG Urine Urobilinogen LESS THAN 2.0 MG/DL Urine Leukocyte Esterase MOD Urine RBC 9 /hpf Urine WBC 25 /hpf Urine Squamous Epithelial Cells 63 /hpf Urine Transitional Epithelial Cells <1 /hpf Urine Bacteria OCC /hpf Urine Hyaline Casts 95 /lpf Urine Mucus FEW /lpf Microscopic Urinalysis Comment CULTURE INDICATED Urine Opiates Screen NEG Urine Barbiturates Screen NEG Urine Amphetamines Screen NEG Urine Benzodiazepines Screen NEG Urine Cocaine Screen POS Urine Cannabinoids Screen NEG MDM Medical Decision Making Medical Screen Exam Complete: Yes Emergency Medical Condition: Yes Medical Record Reviewed: Yes Interpretation(s) Twelve-lead EKG was reviewed by me.. Normal sinus rhythm, normal axis, nonspecific ST-T wave changes. Heart rate of 87 bpm. Differential Diagnosis Influenza, pneumonia, UTI Narrative Course 4:21 PM patient was given Tylenol in triage. Blood test results are back. WBC count is within normal limit with a rightward shift. Troponin is slightly elevated. Influenza test result came back in its positive. I've given her by mouth Tamiflu. Because of the bump troponin I would like to admit her. Chest x -ray was read officially by the radiologist to be negative. In the past patient has history of cocaine abuse. I've ordered for a urine drug screen. Procedures EKG Prior to Arrival: No Diagnosis Primary Impression: Influenza A Additional Impression: Elevated troponin I level Admitting Information Admitting Physician Requests: Michelle Carney MD Mar 27, 2017 15:38
[2017-03-27] MEDS ORDERED: OSELTAMIVIR PHOSPHATE 75 MG CAP PO ONE (16:00)
[2017-03-27] MEDS ORDERED: BUME0.5T PO (16:28)
[2017-03-27 17:01] LABS: BACTERIA, URINE OCC /hpf; BILIRUBIN, URINE NEG (NEG); BLOOD, URINE SMALL (NEG); GLUCOSE,URINE NEG (NEG); HYALINE CAST, URINE 95 /lpf (RARE); KETONE, URINE NEG (NEG); MUCUS URINE FEW /lpf (OCC); NITRITE,URINE NEG (NEG); SQUAMOUS EPITHELIAL CELL URINE 63 /hpf (0-5); TRANSITIONAL EPI CELLS, URINE <1 /hpf; URINE COLOR YELLOW (YELLW/STRAW); URINE LEUKOCYTE ESTERASE MOD (NEG)
--- NOTE | 2017-03-27 17:24 | HHI.HP ---
HPI Service Family Medicine Primary Care Physician No Primary Care Physician Admission Diagnosis influenza a, elevated troponin Diagnoses: International Travel<30 Days: No Contact w/Intl Traveler<30days: No Known Affected Area: No History of Present Illness Patient is a 51-year-old female with past medical history of CHF, COPD, HTN that presents to the ED with 2 day history of productive cough (green phlem) associated with sharp-stabbing non-radiating mid sternal chest pain that since yesterday. Pt stated CP was 8/10 prior to receiving pain medication in the ED, currently CP 6/10. She states CP is intermittent lasting less than an min and has occurred more than 10 times/day. Pt also reports multiple sxs: 2 day hx of decreased appetite, BLEDSOE, body aches, subjective fevers, chills, night sweats, nausea, NBNB vomiting (x2 yesterday), and diarrhea (x4 nonbloody) since this morning. Endorses exposure to sick friends who also were dx with the flu. Pt did not receive flu vaccine this year. 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 -Menarche: 10 yo -LMP: end of 2016 -Pt is sexually active, uses condoms, most current sexual activity was last wk -Pt stated she was tested for HIV last yr and test was negative -declined HIV testing today -Denies hx of STDs (Renate Toussaint MD, R1) Review of Systems Constitutional: COMPLAINS OF: Fatigue, Fever, Chills, Change in appetite, Night Sweats, DENIES: Diaphoretic episodes, Dizziness Eyes: DENIES: Blurred vision, Eye pain Ears, nose, mouth, throat: DENIES: Throat pain, Running Nose Respiratory: COMPLAINS OF: Cough, Wheezing, Sputum production, Shortness of breath, DENIES: Hemoptysis Cardiovascular: COMPLAINS OF: Chest pain, DENIES: Palpitations Gastrointestinal: COMPLAINS OF: Abdominal pain (associated with cough), Diarrhea, Nausea, Vomiting, DENIES: Bloody stools Genitourinary: COMPLAINS OF: Urinary frequency (since yesterday about every 30min), DENIES: Dysuria Musculoskeletal: COMPLAINS OF: Joint pain (knees x 2 days), Muscle aches ( mostly legs for the past 2 days), Neck pain (this she strained neck due to malpositioning while in the ED. No pain, FROM), DENIES: Joint Swelling Integumentary: DENIES: Rash Neurologic: COMPLAINS OF: Headache, DENIES: Paresthesias (Renate Toussaint MD, R1) Past Family Social History Past Medical History COPD CHF HTN high cholesterol asthma Past Surgical History none (Renate Toussaint MD, R1) Allergies: Coded Allergies: lisinopril (Verified Allergy, Severe, 03/27/17) Family History mother- CHF Social History Lives in apartment -smoking: quit in May 2016, prior smoking hx of 1 pack per day for 20yrs -EtOH: 2x per month -Cocaine use, last used 2 months ago, sniff (Renate Toussaint MD, R1) Physical Exam Vital Signs Vital Signs Date Time Temp Pulse Resp B/P (MAP) Pulse Ox O2 Delivery O2 Flow Rate FiO2 03/27/17 13:36 102.5 96 20 131/61 (84) 94 Room Air Physical Exam GENERAL: This is a well-nourished, well-developed patient, in no apparent distress. SKIN: No rashes, ecchymoses or lesions. Cool and dry. HEAD: Atraumatic. Normocephalic. No temporal or scalp tenderness. EYES: Pupils equal round and reactive. Extraocular motions intact. No scleral icterus. No injection or drainage. ENT: Nose without bleeding, purulent drainage or septal hematoma. Throat without erythema, tonsillar hypertrophy or exudate. Oral thrush noted on tongue. Uvula midline. Airway patent. NECK: Trachea midline. No JVD or lymphadenopathy. Supple, nontender, no meningeal signs. CARDIOVASCULAR: Normal S1 and S2. Regular rate and rhythm without murmurs, gallops, or rubs. RESPIRATORY: Crackles heard on RLL. No wheezes, rales, or rhonchi. GASTROINTESTINAL: Abdomen soft, non-tender, nondistended. No hepato-splenomegaly , or palpable masses. No guarding. No CVA tenderness BL MUSCULOSKELETAL: Extremities without clubbing, cyanosis, or edema. No joint tenderness, effusion, or edema noted. No calf tenderness. Negative Homans sign bilaterally. +2 DP pulse BL. NEUROLOGICAL: Awake and alert. Cranial nerves II through XII intact. Motor and sensory grossly within normal limits. Five out of 5 muscle strength in all muscle groups. Normal speech. Laboratory Laboratory Tests Test 03/27/17 14:25 1/11/18 16:25 White Blood Count 4.6 Red Blood Count 4.59 Hemoglobin 8.4 Hematocrit 28.1 Mean Corpuscular Volume 61.2 Mean Corpuscular Hemoglobin 18.4 Mean Corpuscular Hemoglobin Concent 30.1 Red Cell Distribution Width 20.4 Platelet Count 324 Mean Platelet Volume 9.1 Neutrophils (%) (Auto) 56.9 Lymphocytes (%) (Auto) 19.0 Monocytes (%) (Auto) 23.0 Eosinophils (%) (Auto) 0.1 Basophils (%) (Auto) 1.0 Neutrophils # (Auto) 2.6 Lymphocytes # (Auto) 0.9 Monocytes # (Auto) 1.1 Eosinophils # (Auto) 0.0 Basophils # (Auto) 0.0 CBC Comment DIFF FINAL Differential Comment Prothrombin Time 12.0 Prothromb Time International Ratio 1.2 Activated Partial Thromboplast Time 28.0 Blood Urea Nitrogen 16 Creatinine 1.41 Random Glucose 94 Total Protein 7.5 Albumin 3.2 Calcium Level 7.9 Magnesium Level 2.0 Alkaline Phosphatase 60 Aspartate Amino Transf (AST/SGOT) 44 Alanine Aminotransferase (ALT/SGPT) 31 Total Bilirubin 0.2 Sodium Level 135 Potassium Level 3.3 Chloride Level 98 Carbon Dioxide Level 28.9 Anion Gap 8 Estimat Glomerular Filtration Rate 48 Lactic Acid Level 0.8 Total Creatine Kinase 1096 Creatine Kinase MB 0.8 Creatine Kinase MB % 0.1 Troponin I 0.10 Urine Color YELLOW Urine Turbidity CLOUDY Urine pH 6.0 Urine Specific [place] 1.023 Urine Protein 300 Urine Glucose (UA) NEG Urine Ketones NEG Urine Occult Blood SMALL Urine Nitrite NEG Urine Bilirubin NEG Urine Urobilinogen LESS THAN 2.0 Urine Leukocyte Esterase MOD Urine RBC 9 Urine WBC 25 Urine Squamous Epithelial Cells 63 Urine Transitional Epithelial Cells <1 Urine Bacteria OCC Urine Hyaline Casts 95 Urine Mucus FEW Microscopic Urinalysis Comment CULTURE INDICATED Urine Opiates Screen NEG Urine Barbiturates Screen NEG Urine Amphetamines Screen NEG Urine Benzodiazepines Screen NEG Urine Cocaine Screen POS Urine Cannabinoids Screen NEG Date/Time Source Procedure Growth Status 03/27/17 14:27 Nasal Aspirate Influenza Types A,B Antigen (DAVY) - Final Positive For Flu B Antigen Complete 03/27/17 16:25 Urine Clean Catch Urine Culture Pending Received (Renate Toussaint MD, R1) Result Diagram: 03/27/17 1425 03/27/17 1425 Imaging Last Impressions Chest X-Ray 03/27/17 1349 Signed Impressions: Service Date/Time: March 14:06 - CONCLUSION: The heart size appears mildly prominent with no definite perihilar edema. Rodriguez Bird MD (Renate Toussaint MD, R1) Caprini VTE Risk Assessment Caprini VTE Risk Assessment: No/Low Risk (score <= 1) Caprini Risk Assessment Model Point Value = 1 Point Value = 2 Point Value = 3 Point Value = 5 Age 41-60 Minor surgery BMI > 25 kg/m2 Swollen legs Varicose veins or History of unexplained or recurrent spontaneous Oral contraceptives or hormone replacement Sepsis (< 1 month) Serious lung disease, including pneumonia (< 1 month) Abnormal pulmonary function Acute myocardial infarction Congestive heart failure (< 1 month) History of inflammatory bowel disease Medical patient at bed rest Age 61-74 Arthroscopic surgery Major open surgery (> 45 min) Laparoscopic surgery (> 45 min) Malignancy Confined to bed (> 72 hours) Immobilizing plaster cast Central venous access Age >= 75 History of VTE Family history of VTE Factor V Leiden Prothrombin [id number] Lupus anticoagulant Anticardiolipin antibodies Elevated serum homocysteine Heparin-induced thrombocytopenia Other congenital or acquired thrombophilia Stroke (< 1 month) Elective arthroplasty Hip, pelvis, or leg fracture Acute spinal cord injury (< 1 month) Prophylaxis Regimen Total Risk Factor Score Risk Level Prophylaxis Regimen 0-1 Low Early ambulation 2 Moderate Order ONE of the following: *Sequential Compression Device (SCD) *Heparin 5000 units SQ BID 3-4 Higher Order ONE of the following medications: *Heparin 5000 units SQ TID *Enoxaparin/Lovenox 40 mg SQ daily (WT < 150 kg, CrCl > 30 mL/min) *Enoxaparin/Lovenox 30 mg SQ daily (WT < 150 kg, CrCl > 10-29 mL/min) *Enoxaparin/Lovenox 30 mg SQ BID (WT < 150 kg, CrCl > 30 mL/min) AND/OR *Sequential Compression Device (SCD) 5 or more Highest Order ONE of the following medications: *Heparin 5000 units SQ TID (Preferred with Epidurals) *Enoxaparin/Lovenox 40 mg SQ daily (WT < 150 kg, CrCl > 30 mL/min) *Enoxaparin/Lovenox 30 mg SQ daily (WT < 150 kg, CrCl > 10-29 mL/min) *Enoxaparin/Lovenox 30 mg SQ BID (WT < 150 kg, CrCl > 30 mL/min) AND *Sequential Compression Device (SCD) (Renate Toussaint MD, R1) Assessment and Plan Assessment and Plan Patient is a 51-year-old female with past medical history of CHF, COPD, HTN that presents to the ED with 2 day history of productive cough (green phlem) associated with CP and generalize malaise. Pt found to be positive for influenza B in the ED. Pt met sepsis criteria on admission: fever 102.5F, tachycardia HR:96, with source of infection being the lungs. UA positive. Code Status Full code Discussed Condition With DW Dr. Amador WDW Dr. Pereira (Renate Toussaint MD, R1) Problem List: (1) Influenza B ICD Codes: J10.1 - Influenza due to other identified influenza virus with other respiratory manifestations Status: Acute Plan: Pt found to be positive for influenza B No leukocytosis (wbc-4.6) , normal lactic acid- 0.8, pt with O2 saturations 94% on RA -CXR: no definite perihilar edema -c/w tamiflu 75mg BID to complete total course of 5 days -f/u am labs (cbc, cmp), legionella and pneumococcus urine ag, resp. panel, CK -f/u cxr (2) Chest pain ICD Codes: R07.9 - Chest pain, unspecified Status: Acute Plan: Pt with complains of intermittent sharp stabbing chest pain x1 day associate with cough. Pt denied active CP during time of interview. -troponin-0.1 -elevated CK: 1096, f/u repeat -EKG: sinus rhythm, normal -hx of cocaine use, last use 2 month ago per pt -UDS: positive for cocaine -stress test done in 10/2016: normal -trend serial troponin and EKG (3) CHF (congestive heart failure) ICD Codes: I50.9 - Heart failure, unspecified Status: Chronic Plan: -c/w home meds - Echo done on 10/2016: EF: 45-50%, mild LVH -f/u BNP, CMP -f/u echo -cardiology consulted, recommendation appreciated -Pt follows with degree clerk Dr. Arvizu (4) HTN (hypertension) ICD Codes: I10 - Essential (primary) hypertension Status: Chronic Plan: -c/w home meds -BP: 131/61 WNL (5) COPD (chronic obstructive pulmonary disease) ICD Codes: J44.9 - Chronic obstructive pulmonary disease, unspecified Status: Chronic Plan: -c/w home meds -Duoneb Q4h -Albuterol neb Q2h PRN (6) Anemia ICD Codes: D64.9 - Anemia, unspecified Status: Acute Plan: H&H 8.4/28.1 - will continue to monitor and consider transfusion if hgb <8 due to cardiac hx -current sxs most likely related to influenza infection (7) UTI (urinary tract infection) ICD Codes: N39.0 - Urinary tract infection, site not specified Status: Acute Plan: UA positive (mod leuk esterase, urine WBC) -On exam pt with no CVA tenderness -f/u Ucx -keflex 500mg BID po (8) Oral thrush ICD Codes: B37.0 - Candidal stomatitis Status: Acute Plan: -Pt noted to have oral thrush on oral exam, able to scrape off the tongue -Pt stated she tested negative for HIV 1 yr ago -Declined HIV testing today -Possibly associated with ICS use for COPD. Pt stated she does not rinse her mouth after use. -nystatin swish-swallow 5ml QID started 03/27-- (9) JAYCEE (acute kidney injury) ICD Codes: N17.9 - Acute kidney failure, unspecified Plan: Cr. 1.41 -Pt with Cr levels ranging from 1.00-1.46 in the past yr -continue to monitor -consider 1/4 maintenance IVF to flush kidneys (10) High cholesterol ICD Codes: E78.00 - Pure hypercholesterolemia, unspecified Plan: -f/u lipid panel (11) Nutrition, metabolism, and development symptoms ICD Codes: R63.8 - Other symptoms and signs concerning food and fluid intake Plan: Fluids: not indicated at this time Electrolytes: low Na and K, -KCL 20 MeQ po BID, continue to monitor Nutrition: regular diet DVT ppx: heparin SQ (Renate Toussaint MD, R1) Problem List: (1) Influenza B ICD Codes: J10.1 - Influenza due to other identified influenza virus with other respiratory manifestations Status: Acute Plan: Pt found to be positive for influenza B No leukocytosis (wbc-4.6) , normal lactic acid- 0.8, pt with O2 saturations 94% on RA -CXR: no definite perihilar edema -c/w tamiflu 75mg BID to complete total course of 5 days -f/u am labs (cbc, cmp), legionella and pneumococcus urine ag, resp. panel, CK -f/u cxr (2) Chest pain ICD Codes: R07.9 - Chest pain, unspecified Status: Acute Plan: Pt with complains of intermittent sharp stabbing chest pain x1 day associate with cough. Pt denied active CP during time of interview. -troponin-0.1 -elevated CK: 1096, f/u repeat -EKG: sinus rhythm, normal -hx of cocaine use, last use 2 month ago per pt -UDS: positive for cocaine -stress test done in 10/2016: normal -trend serial troponin and EKG (3) CHF (congestive heart failure) ICD Codes: I50.9 - Heart failure, unspecified Status: Chronic Plan: -c/w home meds - Echo done on 10/2016: EF: 45-50%, mild LVH -f/u BNP, CMP -f/u echo -cardiology consulted, recommendation appreciated -Pt follows with degree clerk Dr. Arvizu (4) HTN (hypertension) ICD Codes: I10 - Essential (primary) hypertension Status: Chronic Plan: -c/w home meds -BP: 131/61 WNL (5) COPD (chronic obstructive pulmonary disease) ICD Codes: J44.9 - Chronic obstructive pulmonary disease, unspecified Status: Chronic Plan: -c/w home meds -Duoneb Q4h -Albuterol neb Q2h PRN (6) Anemia ICD Codes: D64.9 - Anemia, unspecified Status: Acute Plan: H&H 8.4/28.1 - will continue to monitor and consider transfusion if hgb <8 due to cardiac hx -current sxs most likely related to influenza infection (7) UTI (urinary tract infection) ICD Codes: N39.0 - Urinary tract infection, site not specified Status: Acute Plan: UA positive (mod leuk esterase, urine WBC) -On exam pt with no CVA tenderness -f/u Ucx -keflex 500mg BID po (8) Oral thrush ICD Codes: B37.0 - Candidal stomatitis Status: Acute Plan: -Pt noted to have oral thrush on oral exam, able to scrape off the tongue -Pt stated she tested negative for HIV 1 yr ago -Declined HIV testing today -Possibly associated with ICS use for COPD. Pt stated she does not rinse her mouth after use. -nystatin swish-swallow 5ml QID started 03/27-- (9) JAYCEE (acute kidney injury) ICD Codes: N17.9 - Acute kidney failure, unspecified Plan: Cr. 1.41 -Pt with Cr levels ranging from 1.00-1.46 in the past yr -continue to monitor -consider 1/ maintenance IVF to flush kidneys (10) High cholesterol ICD Codes: E78.00 - Pure hypercholesterolemia, unspecified Plan: -f/u lipid panel (11) Nutrition, metabolism, and development symptoms ICD Codes: R63.8 - Other symptoms and signs concerning food and fluid intake Plan: Fluids: not indicated at this time Electrolytes: low Na and K, -KCL 20 MeQ po BID, continue to monitor Nutrition: regular diet DVT ppx: heparin SQ See the residents documentation for details. I saw and evaluated the patient regarding the chawla portions of this evaluation and agree with the residents findings and plans as written. Parts of this note were created using [employer] voice recognition software program. While efforts were made to correct any mistakes made by this software, some mistakes, errors, and omissions may remain in the final note that were not caught when the note was originally created. Plan of care was discussed and agreed upon with the patient as specifically documented in the above note. An opportunity to ask questions with explanation was provided. Patient voiced understanding on all information reviewed and discussed. (Barry Pereira MD) Problem Qualifiers (1) Chest pain: Qualified Codes: R07.89 - Other chest pain Renate Toussaint MD, R1 Mar 27, 2017 17:24 Barry Pereira MD Mar 29, 2017 12:15
[2017-03-27 18:00] VITALS: BP 129/60; PULSE 81; RESP 16; TEMP 99.6; O2SAT 93
[2017-03-27] MEDS ORDERED: NALOXONE HCL 0.4 MG/ML AMP IV PUSH PRN ×2 (18:00→22:00)
[2017-03-27 20:00] VITALS: BP 156/67; PULSE 83; RESP 20; TEMP 101.5; O2SAT 95
[2017-03-27 20:08] VITALS: PULSE 85
[2017-03-27] MEDS ORDERED: SODIUM CHLOR 0.9% 1000 ML INJ 1,000 ML IV SCH (20:30)
[2017-03-27] MEDS ORDERED: RESP: ALBUTEROL 2.5 MG/3 ML NEB (PRN) INH (20:30)
[2017-03-27] MEDS ORDERED: OSELTAMIVIR PHOSPHATE 75 MG CAP PO SCH (21:00)
[2017-03-27] MEDS ORDERED: POTASSIUM CHLORIDE 20 MEQ CONTROLLED RELEASE TAB PO SCH (21:00)
[2017-03-27] MEDS ORDERED: hydrALAZINE HCL 20 MG/ML VIAL IV PUSH PRN (21:15)
[2017-03-27] MEDS ORDERED: traMADol HCL 50 MG TAB PO PRN (22:00)
[2017-03-27] MEDS ORDERED: ACETAMINOPHEN 325 MG TAB PO PRN (22:00)
[2017-03-27] MEDS: traMADol HCL 50 MG TAB PO PRN (22:14)
[2017-03-27] MEDS: CEPHALEXIN MONOHYDRATE 500 MG CAP PO SCH (22:14)
[2017-03-27] MEDS: NYSTATIN SUSP 500,000 U/5 ML CUP SWISH-SWAL SCH (22:14)
[2017-03-27] MEDS: ASPIRIN 81 MG CHEW TAB CHEW SCH (22:15)
[2017-03-27] MEDS: BUMETANIDE 1 MG TAB PO SCH (22:15)
[2017-03-27] MEDS: ACETAMINOPHEN 325 MG TAB PO PRN (22:15)
[2017-03-27] MEDS: HEPARIN SODIUM - SQ 10,000 UNITS/ML VIAL SQ SCH (22:17)
--- NOTE | 2017-03-27 22:22 | PD.CONS ---
HPI Service Cardiology Consult Requested By Reason for Consult Elevated troponin. Influenza A. Primary Care Physician No Primary Care Physician History of Present Illness 51-year-old female, no PCP, known to me, presented to ED with 2 day history of productive cough (green phlem) associated with sharp-stabbing non-radiating mid sternal chest pain that since yesterday. Pt stated CP was 8/ 10 prior to receiving pain medication in the ED, currently CP 6/10. She states CP is intermittent lasting less than an min and has occurred more than 10 times/ day. Pt also reports multiple sxs: 2 day hx of decreased appetite, BLEDSOE, body aches, subjective fevers, chills, night sweats, nausea, NBNB vomiting (x2 yesterday), and diarrhea (x4 nonbloody) since this morning. Endorses exposure to sick friends who also were dx with the flu. Pt did not receive flu vaccine this year. Work up in ED found positive Cocaine, positive Flu B antigen. She has history of CHF, COPD, HTN, Asthma. She was admitted to [facility] 06/2016 for chest pain, Echo and Nuclear stress test were unremarkable. LVEF 50%. Review of Systems Consitutional: COMPLAINS OF: Fatigue, DENIES: Fever, Chills, Weight gain, Weight loss Eyes: DENIES: Amaurosis Fugax, Change in vision HEENT: DENIES: Lightheadedness, Change in hearing Respiratory: COMPLAINS OF: Cough, Shortness of breath, DENIES: See HPI, Snoring , Wheezing, Sputum production Cardiovascular: COMPLAINS OF: See HPI, Chest pain, DENIES: Palpitations, Syncope, Tachycardia Gastrointestinal: DENIES: Nausea, Vomiting, Change in bowel habits, Reflux, Bloody stools, Melena Genitourinary: DENIES: Urinary incontinence, Difficulty voiding Integumentary: DENIES: Rash Neurologic: DENIES: Tingling or numbness, Memory problems, Poor Balance, Stroke symptoms Musculoskeletal: COMPLAINS OF: Muscle pain, Back pain, DENIES: Joint pain, Limited range of motion Psychiatric: DENIES: Anxiety, Depression, Sleep disturbances Hematologic: DENIES: Bruising tendencies, Bleeding tendencies Endocrine: DENIES: Weight gain, Weight loss, Thyroid disease Past Family Social History Allergies: Coded Allergies: lisinopril (Verified Allergy, Severe, 03/27/17) Past Medical History Past Medical History COPD CHF HTN high cholesterol asthma Past Surgical History none Reported Medications Reported Meds & Active Scripts Active Ventolin Hfa 18 GM Inh (Albuterol Sulfate) 90 Mcg/Act Aer 2 Puff INH Q4-6H PRN Norvasc (Amlodipine Besylate) 10 Mg Tab 10 Mg PO DAILY Aspirin Low Strength (Aspirin) 81 Mg Chew 81 Mg CHEW DAILY Reported Bumetanide 0.5 Mg Tab 0.5 Mg PO DAILY Active Ordered Medications Current Medications Medications (Trade) Dose Ordered Sig/Aleyda Route Start Time Stop Time Status Last Admin (Norvasc) 10 mg DAILY PO 03/27/17 22:00 (Aspirin Chew) 81 mg DAILY CHEW 03/27/17 22:00 (Bumetanide) 0.5 mg DAILY PO 03/27/17 22:00 (Mycostatin Liq) 5 ml QID SWISH-SWAL 03/27/17 21:00 (Duoneb Neb) 1 ampule Q4HR NEB INH 03/28/17 00:00 (Albuterol Neb) 2.5 mg Q2HR NEB PRN INH 03/27/17 20:30 (Tamiflu) 75 mg BID PO 03/27/17 21:00 04/01/17 20:59 (Heparin Inj) 5,000 units Q8H SQ 03/27/17 21:00 (KCl) 20 meq BID PO 03/27/17 21:00 (Keflex) 500 mg Q12HR PO 03/27/17 21:00 (Apresoline Inj) 10 mg Q6H PRN IV PUSH 03/27/17 21:15 (Tylenol) 650 mg Q6H PRN PO 03/27/17 22:00 (Ultram) 50 mg Q4H PRN PO 03/27/17 22:00 (Ultram) 100 mg Q4H PRN PO 03/27/17 22:00 (Narcan Inj) 0.4 mg UNSCH PRN IV PUSH 03/27/17 22:00 Social History Lives in apartment -smoking: quit in May 2016, prior smoking hx of 1 pack per day for 20yrs -EtOH: 2x per month -Cocaine use, last used 2 months ago, sniff Physical Exam Vital Signs Vital Signs Date Time Temp Pulse Resp B/P (MAP) Pulse Ox O2 Delivery O2 Flow Rate FiO2 03/27/17 18:00 99.6 81 16 129/60 (83) 93 03/27/17 13:36 102.5 96 20 131/61 (84) 94 Room Air Physical Exam GENERAL: This is a well-nourished, well-developed patient, in no apparent distress. Obese SKIN: No rashes, ecchymoses or lesions. Cool and dry. HEAD: Atraumatic. Normocephalic. No temporal or scalp tenderness. EYES: Pupils equal round and reactive. Extraocular motions intact. No scleral icterus. No injection or drainage. NECK: Trachea midline. No JVD or lymphadenopathy. Supple, nontender, no meningeal signs. CARDIOVASCULAR: Normal S1 and S2. Regular rate and rhythm without murmurs, gallops, or rubs. RESPIRATORY: Crackles heard on RLL. No wheezes, rales, or rhonchi. GASTROINTESTINAL: Abdomen soft, non-tender, nondistended. No hepato-splenomegaly , or palpable masses. No guarding. No CVA tenderness BL MUSCULOSKELETAL: Extremities without clubbing, cyanosis, or edema. No joint tenderness, effusion, or edema noted. No calf tenderness. Negative Homans sign bilaterally. +2 DP pulse BL. NEUROLOGICAL: Awake and alert. Cranial nerves II through XII intact. Motor and sensory grossly within normal limits. Five out of 5 muscle strength in all muscle groups. Normal speech. Laboratory Laboratory Tests Test 03/27/17 14:25 03/27/17 16:25 03/27/17 21:44 White Blood Count 4.6 Red Blood Count 4.59 Hemoglobin 8.4 Hematocrit 28.1 Mean Corpuscular Volume 61.2 Mean Corpuscular Hemoglobin 18.4 Mean Corpuscular Hemoglobin Concent 30.1 Red Cell Distribution Width 20.4 Platelet Count 324 Mean Platelet Volume 9.1 Neutrophils (%) (Auto) 56.9 Lymphocytes (%) (Auto) 19.0 Monocytes (%) (Auto) 23.0 Eosinophils (%) (Auto) 0.1 Basophils (%) (Auto) 1.0 Neutrophils # (Auto) 2.6 Lymphocytes # (Auto) 0.9 Monocytes # (Auto) 1.1 Eosinophils # (Auto) 0.0 Basophils # (Auto) 0.0 CBC Comment DIFF FINAL Differential Comment Prothrombin Time 12.0 Prothromb Time International Ratio 1.2 Activated Partial Thromboplast Time 28.0 Blood Urea Nitrogen 16 Creatinine 1.41 Random Glucose 94 Total Protein 7.5 Albumin 3.2 Calcium Level 7.9 Magnesium Level 2.0 Alkaline Phosphatase 60 Aspartate Amino Transf (AST/SGOT) 44 Alanine Aminotransferase (ALT/SGPT) 31 Total Bilirubin 0.2 Sodium Level 135 Potassium Level 3.3 Chloride Level 98 Carbon Dioxide Level 28.9 Anion Gap 8 Estimat Glomerular Filtration Rate 48 Lactic Acid Level 0.8 Total Creatine Kinase 1096 Creatine Kinase MB 0.8 Creatine Kinase MB % 0.1 Troponin I 0.10 Urine Color YELLOW Urine Turbidity CLOUDY Urine pH 6.0 Urine Specific [place] 1.023 Urine Protein 300 Urine Glucose (UA) NEG Urine Ketones NEG Urine Occult Blood SMALL Urine Nitrite NEG Urine Bilirubin NEG Urine Urobilinogen LESS THAN 2.0 Urine Leukocyte Esterase MOD Urine RBC 9 Urine WBC 25 Urine Squamous Epithelial Cells 63 Urine Transitional Epithelial Cells <1 Urine Bacteria OCC Urine Hyaline Casts 95 Urine Mucus FEW Microscopic Urinalysis Comment CULTURE INDICATED Urine Opiates Screen NEG Urine Barbiturates Screen NEG Urine Amphetamines Screen NEG Urine Benzodiazepines Screen NEG Urine Cocaine Screen POS Urine Cannabinoids Screen NEG Date/Time Source Procedure Growth Status 03/27/17 14:27 Nasal Aspirate Influenza Types A,B Antigen (DAVY) - Final Positive For Flu B Antigen Complete 03/27/17 16:25 Urine Clean Catch Urine Culture Pending Received Result Diagram: 03/27/17 1425 03/27/17 1425 Assessment and Plan Problem List: (1) Chest pain ICD Codes: R07.9 - Chest pain, unspecified Status: Acute Plan: Most likely due to Flu B pneumonitis, possible coronary spasm from cocaine use. negative stress test and Echo recently. Will treat underlying disease. (2) Influenza B ICD Codes: J10.1 - Influenza due to other identified influenza virus with other respiratory manifestations Status: Acute Plan: On Tamiflu (3) Cocaine abuse ICD Codes: F14.10 - Cocaine abuse, uncomplicated Plan: She said she will stop using Cocaine. (4) Elevated troponin ICD Codes: R74.8 - Abnormal levels of other serum enzymes Plan: Most likely due to Flu B infection. Will do Echo to assess LV function and regional motion. (5) Anemia ICD Codes: D64.9 - Anemia, unspecified Status: Acute Plan: Consider GI work up if not yet done Problem Qualifiers (1) Chest pain: Qualified Codes: R07.89 - Other chest pain Wing Gardenia Arvizu MD Mar 27, 2017 22:22
[2017-03-27] MEDS: RESP: ALBUTEROL 2.5 MG/IPRATROPIUM 0.5 MG NEB (SCH) INH (23:35)
[2017-03-27 23:38] VITALS: O2SAT 94
[2017-03-28] VITALS (14 sets, daily range): BP systolic 104–155; BP diastolic 56–69; PULSE 76–105; RESP 20; TEMP 99.1–101.6; O2SAT 92–98
[2017-03-28] MEDS: guaiFENesin E.R. 600 MG TAB PO SCH ×3 (01:09→20:46)
[2017-03-28] MEDS: ZOLPIDEM TARTRATE 5 MG TAB PO PRN ×2 (01:09→20:47)
[2017-03-28 04:12] LABS: AUTOMATED NEUTROPHIL # 2.1 TH/MM3 (1.8-7.7); BASOPHIL % 0.9 % (0.0-2.0); EOSINOPHIL % 0.6 % (0.0-4.0); HEMOGLOBIN 8.3 GM/DL (11.6-15.3); LYMPH % 25.5 % (9.0-44.0); LYMPHOCYTE # 1.1 TH/MM3 (1.0-4.8); MEAN CELL VOLUME 61.2 FL (80.0-100.0); MEAN CORPUSCULAR HEMOGLOBIN 18.8 PG (27.0-34.0); MEAN CORPUSCULAR HGB CONC 30.7 % (32.0-36.0); MEAN PLATELET VOLUME 8.6 FL (7.0-11.0); PLATELET COUNT 287 TH/MM3 (150-450); WHITE BLOOD COUNT 4.3 TH/MM3 (4.0-11.0)
[2017-03-28] MEDS: RESP: ALBUTEROL 2.5 MG/IPRATROPIUM 0.5 MG NEB (SCH) INH ×5 (04:32→19:10)
[2017-03-28 04:45] LABS: BICARBONATE 30.2 MEQ/L (21.0-32.0); CALCIUM 7.6 MG/DL (8.5-10.1); CREATININE 1.54 MG/DL (0.50-1.00); MAGNESIUM 1.9 MG/DL (1.5-2.5)
[2017-03-28] MEDS: HEPARIN SODIUM - SQ 10,000 UNITS/ML VIAL SQ SCH ×3 (05:01→20:47)
[2017-03-28 05:11] LABS: CHOLESTEROL/ HDL RATIO 2.47 RATIO; HDL CHOLESTEROL 41.2 MG/DL (40.0-60.0); TROPONIN I 0.09 NG/ML (0.02-0.05)
[2017-03-28] MEDS: traMADol HCL 50 MG TAB PO PRN ×2 (07:07→22:17)
--- NOTE | 2017-03-28 09:23 | RADRPT ---
EXAM DATE/TIME: 03/28/2017 08:26 [place] COMPARISON: CHEST PA & LAT, March 27, 2017, 14:06. INDICATIONS : COPD. Short of breath. MEDICAL HISTORY : Congestive heart failure. Chronic obstructive pulmonary disease. SURGICAL HISTORY : None. ENCOUNTER: Subsequent ACUITY: 2 days PAIN SCORE: 0/10 LOCATION: chest FINDINGS: No new focal pleural or parenchymal opacities. Cardiac silhouette is minimally prominent. Remainder o f exam is unchanged. CONCLUSION: 1. No acute abnormality or significant interval change. Yvan Moreira MD on March 28, 2017 at 9:08 Board Certified Radiologist. This report was verified electronically.
[2017-03-28] MEDS: ASPIRIN 81 MG CHEW TAB CHEW SCH (09:26)
[2017-03-28] MEDS: OSELTAMIVIR PHOSPHATE 75 MG CAP PO SCH (09:26)
[2017-03-28] MEDS: CEPHALEXIN MONOHYDRATE 500 MG CAP PO SCH ×2 (09:26→20:46)
[2017-03-28] MEDS: POTASSIUM CHLORIDE 20 MEQ CONTROLLED RELEASE TAB PO SCH ×2 (09:27→20:46)
[2017-03-28] MEDS: BUMETANIDE 1 MG TAB PO SCH (09:27)
[2017-03-28] MEDS: SODIUM CHLOR 0.9% 1000 ML INJ 1,000 ML IV SCH (09:28)
[2017-03-28] MEDS: NYSTATIN SUSP 500,000 U/5 ML CUP SWISH-SWAL SCH ×4 (09:28→20:46)
--- NOTE | 2017-03-28 12:35 | HHI.FPPN ---
Subjective Remarks Patient seen and examine at bedside. Pt stated she felt dizzy this am while siting down but it has now resolved. Overall pt reports improvement of sxs. Denies diarrhea, N/V or CP. She also reports improvement of cough. Pt stated she is drinking good amount of fluids. (Renate Toussaint MD, R1) Objective Vitals Vital Signs Date Time Temp Pulse Resp B/P (MAP) Pulse Ox O2 Delivery O2 Flow Rate FiO2 03/28/17 08:06 99.8 89 20 125/68 (87) 94 03/28/17 08:00 105 03/28/17 08:00 Room Air 03/28/17 07:52 95 Nasal Cannula 2.00 03/28/17 04:06 79 03/28/17 04:00 Room Air 03/28/17 04:00 99.1 76 20 152/67 (95) 92 03/28/17 00:11 85 03/28/17 00:00 Room Air 03/28/17 00:00 101.6 90 20 155/67 (96) 93 03/27/17 23:38 94 03/27/17 20:08 85 03/27/17 20:00 101.5 83 20 156/67 (96) 95 03/27/17 18:00 99.6 81 16 129/60 (83) 93 03/27/17 13:36 102.5 96 20 131/61 (84) 94 Room Air I/O 03/27/17 03/27/17 03/27/17 03/28/17 03/28/17 03/28/17 07:00 15:00 23:00 07:00 15:00 23:00 Intake Total 480 ml Balance 480 ml Intake Oral 480 ml # Voids 1 2 # Bowel Movements 0 (Renate Toussaint MD, R1) Result Diagram: 03/28/17 0401 03/28/17 0401 Imaging Last Impressions Chest X-Ray 03/28/17 0600 Signed Impressions: Service Date/Time: Tuesday, March 28, 2017 08:26 - CONCLUSION: 1. No acute abnormality or significant interval change. Yvan Moreira MD Objective Remarks Physical Exam GENERAL: This is a well-nourished, well-developed patient, in no apparent distress. SKIN: No rashes, ecchymoses or lesions. Cool and dry. HEAD: Atraumatic. Normocephalic. No temporal or scalp tenderness. EYES: Pupils equal round and reactive. Extraocular motions intact. No scleral icterus. No injection or drainage. ENT: Nose without bleeding, purulent drainage or septal hematoma. Throat without erythema, tonsillar hypertrophy or exudate. Oral thrush noted on tongue. Uvula midline. Airway patent. NECK: Trachea midline. No JVD or lymphadenopathy. Supple, nontender, no meningeal signs. CARDIOVASCULAR: Normal S1 and S2. Regular rate and rhythm without murmurs, gallops, or rubs. RESPIRATORY: Crackles heard on RLL. No wheezes, rales, or rhonchi. GASTROINTESTINAL: Abdomen soft, non-tender, nondistended. No hepato-splenomegaly , or palpable masses. No guarding. No CVA tenderness BL MUSCULOSKELETAL: Extremities without clubbing, cyanosis, or edema. No joint tenderness, effusion, or edema noted. No calf tenderness. Negative Homans sign bilaterally. +2 DP pulse BL. NEUROLOGICAL: Awake and alert. Cranial nerves II through XII intact. Motor and sensory grossly within normal limits. Five out of 5 muscle strength in all muscle groups. Normal speech. (Renate Toussaint MD, R1) A/P Assessment and Plan Patient is a 51-year-old female with past medical history of CHF, COPD, HTN that presents to the ED with 2 day history of productive cough (green phlem) associated with CP and generalize malaise. Pt found to be positive for influenza B in the ED. Pt met sepsis criteria on admission: fever 102.5F, tachycardia HR:96, with source of infection being the lungs. UA positive. (Renate Toussaint MD, R1) Problem List: (1) Influenza B ICD Codes: J10.1 - Influenza due to other identified influenza virus with other respiratory manifestations Status: Acute Plan: Pt found to be positive for influenza B. sxs improving. No leukocytosis (wbc-4.3) -CXR 03/27: no definite perihilar edema -Pt with Tmax of 101.6F overnight, currently afebrile -repeat CXR 03/28: no change from prior -c/w tamiflu 75mg BID to complete total course of 5 days -f/u legionella and pneumococcus urine ag, resp. panel, CK (2) Chest pain ICD Codes: R07.9 - Chest pain, unspecified Status: Acute Plan: Pt with complains of intermittent sharp stabbing chest pain x1 day associate with cough. CP resolved. -troponin-0.1, 0.09, 0.09 -elevated CK: 1096, repeat-1098 -EKG: sinus rhythm, normal -hx of cocaine use, last use 2 month ago per pt -UDS: positive for cocaine -stress test done in 10/2016: normal -elevated troponin on admission can be due to Influenza infection -f/u echo (3) CHF (congestive heart failure) ICD Codes: I50.9 - Heart failure, unspecified Status: Chronic Plan: -c/w home meds -Echo done on 10/2016: EF: 45-50%, mild LVH -BNP- 11 -cardiology consulted, recommendation appreciated -Pt seen field agronomist Dr. Arvizu yesterday -f/u echo (4) HTN (hypertension) ICD Codes: I10 - Essential (primary) hypertension Status: Chronic Plan: -c/w home meds -BP: WNL (5) COPD (chronic obstructive pulmonary disease) ICD Codes: J44.9 - Chronic obstructive pulmonary disease, unspecified Status: Chronic Plan: -c/w home meds -Duoneb Q4h -Albuterol neb Q2h PRN (6) Anemia ICD Codes: D64.9 - Anemia, unspecified Status: Acute Plan: H&H 8.4/28.1 - will continue to monitor and consider transfusion if hgb <8 due to cardiac hx -current sxs most likely related to influenza infection -GI consulted (7) UTI (urinary tract infection) ICD Codes: N39.0 - Urinary tract infection, site not specified Status: Acute Plan: UA positive (mod leuk esterase, urine WBC) -On exam pt with no CVA tenderness -Ucx: 50-100,000, probable contaminants - discontinue keflex 500mg BID po (8) Oral thrush ICD Codes: B37.0 - Candidal stomatitis Status: Acute Plan: -Pt noted to have oral thrush on oral exam, able to scrape off the tongue -Pt stated she tested negative for HIV 1 yr ago -Declined HIV testing today -Possibly associated with ICS use for COPD. Pt stated she does not rinse her mouth after use. -nystatin swish-swallow 5ml QID started 03/27-- (9) JAYCEE (acute kidney injury) ICD Codes: N17.9 - Acute kidney failure, unspecified Plan: on admission: Cr. 1.41, today 1.54 -Pt with Cr levels ranging from 1.00-1.46 in the past yr -continue to monitor -consider / maintenance IVF to flush kidneys -pt on IVF half maintenance 84mls/hr (10) High cholesterol ICD Codes: E78.00 - Pure hypercholesterolemia, unspecified Plan: -f/u lipid panel (11) Nutrition, metabolism, and development symptoms ICD Codes: R63.8 - Other symptoms and signs concerning food and fluid intake Plan: Fluids: 84mls/hr Electrolytes: low K, -c/w KCL 20 MeQ po BID, continue to monitor Nutrition: regular diet DVT ppx: heparin SQ (Renate Toussaint MD, R1) Problem List: (1) Influenza B ICD Codes: J10.1 - Influenza due to other identified influenza virus with other respiratory manifestations Status: Acute Plan: Pt found to be positive for influenza B. sxs improving. No leukocytosis (wbc-4.3) -CXR 03/27: no definite perihilar edema -Pt with Tmax of 101.6F overnight, currently afebrile -repeat CXR 03/28: no change from prior -c/w tamiflu 75mg BID to complete total course of 5 days -f/u legionella and pneumococcus urine ag, resp. panel, CK (2) Chest pain ICD Codes: R07.9 - Chest pain, unspecified Status: Acute Plan: Pt with complains of intermittent sharp stabbing chest pain x1 day associate with cough. CP resolved. -troponin-0.1, 0.09, 0.09 -elevated CK: 1096, repeat-1098 -EKG: sinus rhythm, normal -hx of cocaine use, last use 2 month ago per pt -UDS: positive for cocaine -stress test done in 10/2016: normal -elevated troponin on admission can be due to Influenza infection -f/u echo (3) CHF (congestive heart failure) ICD Codes: I50.9 - Heart failure, unspecified Status: Chronic Plan: -c/w home meds -Echo done on 10/2016: EF: 45-50%, mild LVH -BNP- 11 -cardiology consulted, recommendation appreciated -Pt seen field agronomist Dr. Arvizu yesterday -f/u echo (4) HTN (hypertension) ICD Codes: I10 - Essential (primary) hypertension Status: Chronic Plan: -c/w home meds -BP: WNL (5) COPD (chronic obstructive pulmonary disease) ICD Codes: J44.9 - Chronic obstructive pulmonary disease, unspecified Status: Chronic Plan: -c/w home meds -Duoneb Q4h -Albuterol neb Q2h PRN (6) Anemia ICD Codes: D64.9 - Anemia, unspecified Status: Acute Plan: H&H 8.4/28.1 - will continue to monitor and consider transfusion if hgb <8 due to cardiac hx -current sxs most likely related to influenza infection -GI consulted (7) UTI (urinary tract infection) ICD Codes: N39.0 - Urinary tract infection, site not specified Status: Acute Plan: UA positive (mod leuk esterase, urine WBC) -On exam pt with no CVA tenderness -Ucx: 50-100,000, probable contaminants - discontinue keflex 500mg BID po (8) Oral thrush ICD Codes: B37.0 - Candidal stomatitis Status: Acute Plan: -Pt noted to have oral thrush on oral exam, able to scrape off the tongue -Pt stated she tested negative for HIV 1 yr ago -Declined HIV testing today -Possibly associated with ICS use for COPD. Pt stated she does not rinse her mouth after use. -nystatin swish-swallow 5ml QID started 03/27-- (9) JAYCEE (acute kidney injury) ICD Codes: N17.9 - Acute kidney failure, unspecified Plan: on admission: Cr. 1.41, today 1.54 -Pt with Cr levels ranging from 1.00-1.46 in the past yr -continue to monitor -consider 1/4 maintenance IVF to flush kidneys -pt on IVF half maintenance 84mls/hr (10) High cholesterol ICD Codes: E78.00 - Pure hypercholesterolemia, unspecified Plan: -f/u lipid panel (11) Nutrition, metabolism, and development symptoms ICD Codes: R63.8 - Other symptoms and signs concerning food and fluid intake Plan: Fluids: 84mls/hr Electrolytes: low K, -c/w KCL 20 MeQ po BID, continue to monitor Nutrition: regular diet DVT ppx: heparin SQ See the residents documentation for details. I saw and evaluated the patient regarding the chawla portions of this evaluation and agree with the residents findings and plans as written. Parts of this note were created using [employer] voice recognition software program. While efforts were made to correct any mistakes made by this software, some mistakes, errors, and omissions may remain in the final note that were not caught when the note was originally created. Plan of care was discussed and agreed upon with the patient as specifically documented in the above note. An opportunity to ask questions with explanation was provided. Patient voiced understanding on all information reviewed and discussed. (Barry Pereira MD) Problem Qualifiers (1) Chest pain: Qualified Codes: R07.89 - Other chest pain Renate Toussaint MD, R1 Mar 28, 2017 12:35 Barry Pereira MD Mar 29, 2017 12:27
--- NOTE | 2017-03-28 14:53 | ECHRPT ---
Indication: HEART FAILURE CONCLUSIONS Moderately dilated left ventricle. Wall thickness is measured at the upper limits of normal. The left ventricular systolic function is qbiwmgae-vh-czwezld reduced with an estimated ejection fra ction in the range of 35-40%. There is a trivial pericardial effusion present. BP: 152 / 67 HR: 96 Rhythm: MEASUREMENTS (Male / Female) Normal Values Technical Quality:Good 2D ECHO LV Diastolic Diameter PLAX 5.7 cm 4.2 - 5.9 / 3.9 - 5.3 cm LV Systolic Diameter PLAX 4.8 cm IVS Diastolic Thickness 1.2 cm 0.6 - 1.0 / 0.6 - 0.9 cm LVPW Diastolic Thickness 1.1 cm 0.6 - 1.0 / 0.6 - 0.9 cm LV Relative Wall Thickness 0.4 RV Internal Dim ED PLAX 2.3 cm LA Systolic Diameter LX 3.9 cm 3.0 - 4.0 / 2.7 - 3.8 cm DOPPLER Mitral E Point Velocity 104.0 cm/s Mitral A Point Velocity 68.6 cm/s Mitral E to A Ratio 1.5 TR Peak Velocity 172.0 cm/s TR Peak Gradient 11.8 mmHg Right Atrial Pressure 5.0 mmHg Pulmonary Artery Systolic Pressu 16.8 mmHg Right Ventricular Systolic Press 16.8 mmHg FINDINGS LEFT VENTRICLE Moderately dilated left ventricle. Wall thickness is measured at the upper limits of normal. The left ventricular systolic function is ixomrqlx-rf-yijoijv reduced with an estimated ejection fra ction in the range of 35-40%. RIGHT VENTRICLE Normal right ventricular size and systolic function. LEFT ATRIUM The left atrial size is normal. RIGHT ATRIUM The right atrial size is normal. ATRIAL SEPTUM Normal atrial septal thickness without atrial level shunting by limited color doppler interrogation. AORTA The aortic root and proximal ascending aorta are normal in size on limited imaging. MITRAL VALVE Structurally normal mitral valve. No mitral valve stenosis or regurgitation. AORTIC VALVE Trileaflet aortic valve. No aortic valve stenosis or regurgitation. TRICUSPID VALVE Structurally normal tricuspid valve. No tricuspid valve stenosis or regurgitation. PULMONARY VALVE No pulmonary valve regurgitation or stenosis. VESSELS The inferior vena cava is normal in size. PERICARDIUM There is a trivial pericardial effusion present. Alan Biggs MD, FACC (Electronically Signed) Final Date:28 March 2017 14:52
--- NOTE | 2017-03-28 14:58 | HHI.GIFU ---
Subjective Remarks sitting on the side of bed, Denies any current GI symptoms. Stated menstrual bleeding > 2 weeks at a time. Febrile with flu continues Objective Vitals I&O Vital Signs Date Time Temp Pulse Resp B/P (MAP) Pulse Ox O2 Delivery O2 Flow Rate FiO2 03/28/17 12:06 99.6 80 20 123/56 (78) 96 03/28/17 12:00 Room Air 03/28/17 12:00 89 03/28/17 08:06 99.8 89 20 125/68 (87) 94 03/28/17 08:00 105 03/28/17 08:00 Room Air 03/28/17 07:52 95 Nasal Cannula 2.00 03/28/17 04:06 79 03/28/17 04:00 Room Air 03/28/17 04:00 99.1 76 20 152/67 (95) 92 03/28/17 00:11 85 03/28/17 00:00 Room Air 03/28/17 00:00 101.6 90 20 155/67 (96) 93 03/27/17 23:38 94 03/27/17 20:08 85 03/27/17 20:00 101.5 83 20 156/67 (96) 95 03/27/17 18:00 99.6 81 16 129/60 (83) 93 I/O 03/27/17 03/27/17 03/27/17 03/28/17 03/28/17 03/28/17 07:00 15:00 23:00 07:00 15:00 23:00 Intake Total 480 ml Balance 480 ml Intake Oral 480 ml # Voids 1 2 # Bowel Movements 0 Laboratory Laboratory Tests Test 03/27/17 16:25 03/27/17 21:44 03/28/17 04:01 Urine Color YELLOW Urine Turbidity CLOUDY Urine pH 6.0 Urine Specific [place] 1.023 Urine Protein 300 Urine Glucose (UA) NEG Urine Ketones NEG Urine Occult Blood SMALL Urine Nitrite NEG Urine Bilirubin NEG Urine Urobilinogen LESS THAN 2.0 Urine Leukocyte Esterase MOD Urine RBC 9 Urine WBC 25 Urine Squamous Epithelial Cells 63 Urine Transitional Epithelial Cells <1 Urine Bacteria OCC Urine Hyaline Casts 95 Urine Mucus FEW Microscopic Urinalysis Comment CULTURE INDICATED Urine Opiates Screen NEG Urine Barbiturates Screen NEG Urine Amphetamines Screen NEG Urine Benzodiazepines Screen NEG Urine Cocaine Screen POS Urine Cannabinoids Screen NEG Troponin I 0.09 0.09 White Blood Count 4.3 Red Blood Count 4.40 Hemoglobin 8.3 Hematocrit 27.0 Mean Corpuscular Volume 61.2 Mean Corpuscular Hemoglobin 18.8 Mean Corpuscular Hemoglobin Concent 30.7 Red Cell Distribution Width 21.0 Platelet Count 287 Mean Platelet Volume 8.6 Neutrophils (%) (Auto) 50.0 Lymphocytes (%) (Auto) 25.5 Monocytes (%) (Auto) 23.0 Eosinophils (%) (Auto) 0.6 Basophils (%) (Auto) 0.9 Neutrophils # (Auto) 2.1 Lymphocytes # (Auto) 1.1 Monocytes # (Auto) 1.0 Eosinophils # (Auto) 0.0 Basophils # (Auto) 0.0 CBC Comment DIFF FINAL Differential Comment Blood Urea Nitrogen 23 Creatinine 1.54 Random Glucose 98 Calcium Level 7.6 Magnesium Level 1.9 Sodium Level 137 Potassium Level 3.3 Chloride Level 100 Carbon Dioxide Level 30.2 Anion Gap 7 Estimat Glomerular Filtration Rate 43 Total Creatine Kinase 1098 Creatine Kinase MB 0.5 Creatine Kinase MB % 0.0 B-Type Natriuretic Peptide 11 Triglycerides Level 56 Cholesterol Level 102 LDL Cholesterol 50 HDL Cholesterol 41.2 Cholesterol/HDL Ratio 2.47 Vitamin B12 Level 753 Folate 17.0 Date/Time Source Procedure Growth Status 03/27/17 14:27 Nasal Aspirate Influenza Types A,B Antigen (DAVY) - Final Positive For Flu B Antigen Complete 03/27/17 16:25 Urine Clean Catch Urine Culture - Final 50-100,000 CFU/ML MIXED JOAN... Complete Imaging Last Impressions Chest X-Ray 03/28/17 0600 Signed Impressions: Service Date/Time: Tuesday, March 28, 2017 08:26 - CONCLUSION: 1. No acute abnormality or significant interval change. Yvan Moreira MD Physical Exam HEENT: Pupils round and reactive to light; normocephalic; atraumatic;pale MM NECK: Neck is soft, obese CHEST: Chest is clear to auscultation and percussion. CARDIAC: Regular rate and rhythm ABDOMEN: large, nondistended, nontender; no hepatosplenomegaly; bowel sounds are present in all four quadrants. EXTREMITIES: No edema. SKIN: Normal; no rash; no jaundice. 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 May Solorzano Mar 28, 2017 14:58
--- NOTE | 2017-03-28 15:09 | PD.CONS ---
HPI History of Present Illness This is a 51 year old morbid obese female admitted 03/27/17 for Influenza B. She is in airborne isolation and remains febrile today. On admission , patient had anemia, unspecified; labs today show HGB same 8.4 and 8.3. Patient denies nausea, vomiting, no diarrhea or constipation, dysphagia, rectal bleeding or abd. pain. When assessing her low HGB, patient states she has menstrual periods for 2 weeks and has not been seen per [facility]. She notes some mild dizziness off and on, but none now. Patient is still has some fever, but denies any obvious bleeding at present. Mild elevated ALT 44/ 30 ALT which could be related to possible fatty liver disease. Patient has never had any GI testing, EGD or colonoscopy. (May Solorzano) PFSH Past Medical History Asthma COPD Hyperlipidemia CHF (May Solorzano) Coded Allergies: lisinopril (Verified Allergy, Severe, 03/27/17) Medications Administered Medications Medications (Trade) Dose Ordered Sig/Aleyda Route PRN Reason Start Time Stop Time Status Last Admin Dose Admin Amlodipine Besylate (Norvasc) 10 mg DAILY PO 03/27/17 22:00 03/28/17 09:26 Aspirin (Aspirin Chew) 81 mg DAILY CHEW 03/27/17 22:00 03/28/17 09:26 Bumetanide (Bumetanide) 0.5 mg DAILY PO 03/27/17 22:00 03/28/17 09:27 Nystatin (Mycostatin Liq) 5 ml QID SWISH-SWAL 03/27/17 21:00 03/28/17 13:08 Albuterol/ Ipratropium (Duoneb Neb) 1 ampule Q4HR NEB INH 03/28/17 00:00 03/28/17 12:26 Heparin Sodium (Porcine) (Heparin Inj) 5,000 units Q8H SQ 03/27/17 21:00 03/28/17 13:08 Cephalexin Monohydrate (Keflex) 500 mg Q12HR PO 03/27/17 21:00 03/28/17 09:26 Tramadol HCl (Ultram) 100 mg Q4H PRN PO PAIN SCALE 6 TO 10 03/27/17 22:00 03/28/17 07:07 Acetaminophen (Tylenol) 325 mg Q4HR PRN PO FEVER 03/27/17 22:45 03/27/17 22:15 Guaifenesin (Mucinex Er) 600 mg BID PO 03/28/17 00:15 03/28/17 09:27 Zolpidem Tartrate (Ambien) 5 mg HS PRN PO INSOMNIA 03/28/17 00:15 03/28/17 01:09 Oseltamivir Phosphate (Tamiflu) 75 mg DAILY PO 03/28/17 09:00 03/28/17 09:26 Potassium Chloride (KCl) 40 meq BID PO 03/28/17 09:00 03/28/17 09:27 Sodium Chloride 1,000 ml @ 84 mls/hr [id number] IV 03/28/17 07:30 03/28/17 09:28 Social History Recent smoking 1 year ago, 1PPD 20 years. Cocaine used 11/06/16, with current positive drug screen (May Solorzano) Review of Systems Constitutional: COMPLAINS OF: Fatigue, Fever (May Solorzano) GI Exam Vitals I&O Vital Signs Date Time Temp Pulse Resp B/P (MAP) Pulse Ox O2 Delivery O2 Flow Rate FiO2 03/28/17 12:06 99.6 80 20 123/56 (78) 96 03/28/17 12:00 Room Air 03/28/17 12:00 89 03/28/17 08:06 99.8 89 20 125/68 (87) 94 03/28/17 08:00 105 03/28/17 08:00 Room Air 03/28/17 07:52 95 Nasal Cannula 2.00 03/28/17 04:06 79 03/28/17 04:00 Room Air 03/28/17 04:00 99.1 76 20 152/67 (95) 92 03/28/17 00:11 85 03/28/17 00:00 Room Air 03/28/17 00:00 101.6 90 20 155/67 (96) 93 03/27/17 23:38 94 03/27/17 20:08 85 03/27/17 20:00 101.5 83 20 156/67 (96) 95 03/27/17 18:00 99.6 81 16 129/60 (83) 93 I/O 1/02/0103/27/17 03/27/17 03/28/17 03/28/17 03/28/17 07:00 15:00 23:00 07:00 15:00 23:00 Intake Total 480 ml Balance 480 ml Intake Oral 480 ml # Voids 1 2 # Bowel Movements 0 Imaging Last Impressions Chest X-Ray 03/28/17 0600 Signed Impressions: Service Date/Time: Tuesday, March 28, 2017 08:26 - CONCLUSION: 1. No acute abnormality or significant interval change. Yvan Moreira MD Laboratory Test 03/27/17 16:25 03/27/17 21:44 03/28/17 04:01 Urine Color YELLOW Urine Turbidity CLOUDY Urine pH 6.0 Urine Specific [place] 1.023 Urine Protein 300 mg/dL Urine Glucose (UA) NEG mg/dL Urine Ketones NEG mg/dL Urine Occult Blood SMALL Urine Nitrite NEG Urine Bilirubin NEG Urine Urobilinogen LESS THAN 2.0 MG/DL Urine Leukocyte Esterase MOD Urine RBC 9 /hpf Urine WBC 25 /hpf Urine Squamous Epithelial Cells 63 /hpf Urine Transitional Epithelial Cells <1 /hpf Urine Bacteria OCC /hpf Urine Hyaline Casts 95 /lpf Urine Mucus FEW /lpf Microscopic Urinalysis Comment CULTURE INDICATED Urine Opiates Screen NEG Urine Barbiturates Screen NEG Urine Amphetamines Screen NEG Urine Benzodiazepines Screen NEG Urine Cocaine Screen POS Urine Cannabinoids Screen NEG Troponin I 0.09 NG/ML 0.09 NG/ML White Blood Count 4.3 TH/MM3 Red Blood Count 4.40 MIL/MM3 Hemoglobin 8.3 GM/DL Hematocrit 27.0 % Mean Corpuscular Volume 61.2 FL Mean Corpuscular Hemoglobin 18.8 PG Mean Corpuscular Hemoglobin Concent 30.7 % Red Cell Distribution Width 21.0 % Platelet Count 287 TH/MM3 Mean Platelet Volume 8.6 FL Neutrophils (%) (Auto) 50.0 % Lymphocytes (%) (Auto) 25.5 % Monocytes (%) (Auto) 23.0 % Eosinophils (%) (Auto) 0.6 % Basophils (%) (Auto) 0.9 % Neutrophils # (Auto) 2.1 TH/MM3 Lymphocytes # (Auto) 1.1 TH/MM3 Monocytes # (Auto) 1.0 TH/MM3 Eosinophils # (Auto) 0.0 TH/MM3 Basophils # (Auto) 0.0 TH/MM3 CBC Comment DIFF FINAL Differential Comment Blood Urea Nitrogen 23 MG/DL Creatinine 1.54 MG/DL Random Glucose 98 MG/DL Calcium Level 7.6 MG/DL Magnesium Level 1.9 MG/DL Sodium Level 137 MEQ/L Potassium Level 3.3 MEQ/L Chloride Level 100 MEQ/L Carbon Dioxide Level 30.2 MEQ/L Anion Gap 7 MEQ/L Estimat Glomerular Filtration Rate 43 ML/MIN Total Creatine Kinase 1098 U/L Creatine Kinase MB 0.5 NG/ML Creatine Kinase MB % 0.0 % B-Type Natriuretic Peptide 11 PG/ML Triglycerides Level 56 MG/DL Cholesterol Level 102 MG/DL LDL Cholesterol 50 MG/DL HDL Cholesterol 41.2 MG/DL Cholesterol/HDL Ratio 2.47 RATIO Vitamin B12 Level 753 PG/ML Folate 17.0 NG/ML Date/Time Source Procedure Growth Status 03/27/17 14:27 Nasal Aspirate Influenza Types A,B Antigen (DAVY) - Final Positive For Flu B Antigen Complete 03/27/17 16:25 Urine Clean Catch Urine Culture - Final 50-100,000 CFU/ML MIXED JOAN... Complete Physical Examination HEENT: Pupils round and reactive to light; normocephalic; atraumatic; no jaundice. Oral cavity clean NECK: Neck is supple, obese, short CHEST: Chest mild wheeze CARDIAC: Regular rate and rhythm ABDOMEN: Soft, nondistended, nontender; bowel sounds are present in all four quadrants. EXTREMITIES: No clubbing, cyanosis, or edema. SKIN: Normal; no rash; no jaundice. FINISH GRINDER: No focal deficits; alert and oriented times three. (May Solorzano) Assessment and Plan Assessment: (1) Anemia ICD Codes: D64.9 - Anemia, unspecified Status: Acute (2) Influenza B ICD Codes: J10.1 - Influenza due to other identified influenza virus with other respiratory manifestations Status: Acute Plan Anemia , unspecified. HGB stable at 8.3, Influenza B being managed per attending, Plan Anemia Workup lab Ferritin, iron, TIBC, Ferrous Sulfate 325 mg.BID Consider OP Appointment with [facility] for intensive menstrual bleeding Consider EGD/ Colonoscopy screening after patient is feeling better. , could be done as OP> Call for any acute GI bleeding episodes. PPI Supportive care PLAN of Care as per symptoms needs Patient seen per myself and Dr. Pennington, note on her behalf (May Solorzano) Physician Comments seen, examined agree with above if remains hospitalized-egd/colon next week (Maggie Pennington MD) May Solorzano Mar 28, 2017 15:09 Maggie Pennington MD Mar 28, 2017 22:00
--- NOTE | 2017-03-28 16:34 | EKG ---
Date Performed: 03/27/2017 Time Performed: 21:38:50 PTAGE: 51 years EKG: Sinus rhythm ST DEVIATION AND MODERATE T-WAVE ABNORMALITY, CONSIDER INFERIOR ISCHEMIA ABNORMAL ECG PREVIOUS TRACING : 03/27/2017 14.16 Since previous tracing, no significant change noted DOCTOR: Nabil Mir Interpretating Date/Time 03/28/2017 16:33:27
--- NOTE | 2017-03-28 16:34 | EKG ---
Date Performed: 03/27/2017 Time Performed: 14:16:09 PTAGE: 51 years EKG: Sinus rhythm POSSIBLE LEFT ATRIAL ENLARGEMENT NONSPECIFIC ST & T-WAVE ABNORMALITY BORDERLINE ECG PREVIOUS TRACING : 11/13/2016 03.13 Since previous tracing, no significant change noted DOCTOR: Nabil Mir Interpretating Date/Time 03/28/2017 16:33:00
--- NOTE | 2017-03-28 16:37 | EKG ---
Date Performed: 03/28/2017 Time Performed: 01:05:36 PTAGE: 51 years EKG: Sinus rhythm ST junctional depression is nonspecific Borderline ECG PREVIOUS TRACING 03/27/17 @ 21.38.50 Since previous tracing, no significant change noted DOCTOR: Nabil Mir Interpretating Date/Time 03/28/2017 16:35:33
[2017-03-28] MEDS: FERROUS SULFATE 325 MG (65 MG ELEMENTAL IRON) TAB PO SCH (20:48)
[2017-03-29] VITALS (11 sets, daily range): BP systolic 118–140; BP diastolic 56–66; PULSE 69–83; RESP 20–24; TEMP 97.5–100.1; O2SAT 93–97
[2017-03-29] MEDS: RESP: ALBUTEROL 2.5 MG/IPRATROPIUM 0.5 MG NEB (SCH) INH ×5 (00:58→16:00)
[2017-03-29] MEDS: SODIUM CHLOR 0.9% 1000 ML INJ 1,000 ML IV SCH (03:00)
[2017-03-29] MEDS: HEPARIN SODIUM - SQ 10,000 UNITS/ML VIAL SQ SCH ×2 (05:21→12:18)
[2017-03-29] MEDS: ACETAMINOPHEN 325 MG TAB PO PRN (06:09)
[2017-03-29] MEDS: POTASSIUM CHLORIDE 20 MEQ CONTROLLED RELEASE TAB PO SCH (08:18)
[2017-03-29] MEDS: NYSTATIN SUSP 500,000 U/5 ML CUP SWISH-SWAL SCH ×2 (08:19→12:18)
[2017-03-29] MEDS: BUMETANIDE 1 MG TAB PO SCH (08:19)
[2017-03-29] MEDS: FERROUS SULFATE 325 MG (65 MG ELEMENTAL IRON) TAB PO SCH (08:19)
[2017-03-29] MEDS: OSELTAMIVIR PHOSPHATE 75 MG CAP PO SCH (08:19)
[2017-03-29] MEDS: guaiFENesin E.R. 600 MG TAB PO SCH (08:19)
[2017-03-29] MEDS: ASPIRIN 81 MG CHEW TAB CHEW SCH (08:19)
[2017-03-29 08:21] LABS: AUTOMATED NEUTROPHIL # 2.6 TH/MM3 (1.8-7.7); BASOPHIL % 0.9 % (0.0-2.0); EOSINOPHIL % 0.9 % (0.0-4.0); HEMATOCRIT 25.3 % (35.0-46.0); HEMOGLOBIN 7.6 GM/DL (11.6-15.3); LYMPH % 32.6 % (9.0-44.0); LYMPHOCYTE # 1.6 TH/MM3 (1.0-4.8); MEAN CELL VOLUME 61.3 FL (80.0-100.0); MEAN CORPUSCULAR HEMOGLOBIN 18.3 PG (27.0-34.0); MEAN PLATELET VOLUME 8.9 FL (7.0-11.0); MONO % 14.1 % (0.0-8.0); MONOCYTE # 0.7 TH/MM3 (0-0.9); NEUT % 51.5 % (16.0-70.0); PLATELET COUNT 284 TH/MM3 (150-450); RED BLOOD COUNT 4.12 MIL/MM3 (4.00-5.30)
[2017-03-29 08:36] LABS: MEAN CORPUSCULAR HGB CONC 29.9 % (32.0-36.0)
[2017-03-29 08:40] LABS: % SATURATION IRON PROFILE 3.3 % (20-50); IRON (FE) 14 MCG/DL (50-170); TOTAL IRON BINDING CAPACITY 427 MCG/DL (250-450)
[2017-03-29 08:42] LABS: BICARBONATE 25.2 MEQ/L (21.0-32.0); CALCIUM 7.4 MG/DL (8.5-10.1); CREATININE 1.37 MG/DL (0.50-1.00)
[2017-03-29 08:43] LABS: FERRITIN 40 NG/ML (8-252)
[2017-03-29 09:01] LABS: CALCIUM-PROTEIN CORRECTED 7.6 MG/DL (8.5-10.1); TOTAL PROTEIN 6.7 GM/DL (6.4-8.2)
--- NOTE | 2017-03-29 12:36 | HHI.FPPN ---
Subjective Remarks Patient seen and examined this morning. Patient states she feels 100% better and is ready to go home. Patient denies any nausea/vomiting. Patient denies any chest pain or shortness of breath. Patient on further questioning does admit to heavy menstrual bleeding in February. She has had no bleeding since this time. She agrees that she is to follow up with a [facility] as an outpatient. Denies any fever/chills. (Indu Amador MD R2) Objective Vitals Vital Signs Date Time Temp Pulse Resp B/P (MAP) Pulse Ox O2 Delivery O2 Flow Rate FiO2 03/29/17 08:34 93 03/29/17 08:07 98.3 81 21 129/60 (83) 93 03/29/17 08:00 76 03/29/17 07:02 98.2 03/29/17 04:15 78 03/29/17 04:00 100.1 81 20 140/56 (84) 93 03/29/17 03:58 18 03/29/17 00:59 94 03/29/17 00:26 72 03/29/17 00:00 99.1 83 24 134/63 (86) 93 03/28/17 20:11 88 03/28/17 20:00 99.3 88 20 104/64 (77) 93 03/28/17 16:06 Room Air 03/28/17 16:00 80 03/28/17 15:33 96 Nasal Cannula 2.00 03/28/17 14:06 99.8 80 20 119/69 (86) 98 I/O 03/28/17 03/28/17 03/28/17 03/29/17 03/29/17 03/29/17 07:00 15:00 23:00 07:00 15:00 23:00 Intake Total 480 ml 720 ml 1360 ml Balance 480 ml 720 ml 1360 ml Intake Oral 480 ml 720 ml 360 ml IV Total 1000 ml # Voids 2 4 2 # Bowel Movements 0 0 0 (Indu Amador MD R2) Result Diagram: 03/29/17 0730 03/29/17 0730 Objective Remarks Physical Exam GENERAL: This is a well-nourished, well-developed patient, in no apparent distress. SKIN: No rashes, ecchymoses or lesions. Cool and dry. HEAD: Atraumatic. Normocephalic. No temporal or scalp tenderness. EYES: Pupils equal round and reactive. Extraocular motions intact. No scleral icterus. No injection or drainage. ENT: Nose without bleeding, purulent drainage or septal hematoma. Throat without erythema, tonsillar hypertrophy or exudate. Oral thrush noted on tongue. Uvula midline. Airway patent. NECK: Trachea midline. No JVD or lymphadenopathy. Supple, nontender, no meningeal signs. CARDIOVASCULAR: Normal S1 and S2. Regular rate and rhythm without murmurs, gallops, or rubs. RESPIRATORY: LCTA. No wheezes, rales, or rhonchi. GASTROINTESTINAL: Abdomen soft, non-tender, nondistended. No hepato-splenomegaly , or palpable masses. No guarding. No CVA tenderness BL MUSCULOSKELETAL: Extremities without clubbing, cyanosis, or edema. No joint tenderness, effusion, or edema noted. No calf tenderness. Negative Homans sign bilaterally. +2 DP pulse BL. NEUROLOGICAL: Awake and alert. Cranial nerves II through XII intact. Motor and sensory grossly within normal limits. Five out of 5 muscle strength in all muscle groups. Normal speech. (Indu Amador MD R2) A/P Assessment and Plan Patient is a 51-year-old female with past medical history of CHF, COPD, HTN that presents to the ED with 2 day history of productive cough (green phlem) associated with CP and generalize malaise. Pt found to be positive for influenza B in the ED. Pt met sepsis criteria on admission: fever 102.5F, tachycardia HR:96, with source of infection being the lungs. UA positive. Discharge Planning Discharged today (Indu Amador MD R2) Problem List: (1) Influenza B ICD Codes: J10.1 - Influenza due to other identified influenza virus with other respiratory manifestations Status: Acute Plan: Pt found to be positive for influenza B. sxs improving. No leukocytosis (wbc-5.0) -CXR 03/27: no definite perihilar edema -Afebrile since 03/28 at 12 AM -repeat CXR 03/28: no change from prior -c/w tamiflu 75mg BID to complete total course of 5 days - legionella and pneumococcus urine ag: negative (2) Chest pain ICD Codes: R07.9 - Chest pain, unspecified Status: Acute Plan: CP resolved. -troponin-0.1, 0.09, 0.09 -EKG: sinus rhythm, normal -hx of cocaine use, last use 2 month ago per pt -UDS: positive for cocaine -stress test done in 10/2016: normal -elevated troponin on admission can be due to Influenza infection -Echocardiogram: Ejection fraction 35-40% Appreciate recommendations of patient's personal consulting solution manager Dr. Fernando - May be due to coronary spasm - Treat for influenza - Follow up with cardiology as outpatient (3) CHF (congestive heart failure) ICD Codes: I50.9 - Heart failure, unspecified Status: Chronic Plan: -c/w home meds -Echo done on 10/2016: EF: 45-50%, mild LVH -BNP- 11 -cardiology consulted, recommendation appreciated -Pt seen consulting solution manager Dr. Arvizu yesterday -f/u echo (4) HTN (hypertension) ICD Codes: I10 - Essential (primary) hypertension Status: Chronic Plan: -c/w home meds -BP: WNL (5) COPD (chronic obstructive pulmonary disease) ICD Codes: J44.9 - Chronic obstructive pulmonary disease, unspecified Status: Chronic Plan: -c/w home meds -Duoneb Q4h -Albuterol neb Q2h PRN (6) Anemia ICD Codes: D64.9 - Anemia, unspecified Status: Acute Plan: Hemoglobin 7.6 today, from 8.3 yesterday - will continue to monitor and consider transfusion if hgb <8 due to cardiac hx -Transfuse 2 U PRBCs - f/u posttransfusion H&H - Discharge if hemoglobin over 8.0 -GI consulted, follow up outpatient - Referral to [facility] for history of menorrhagia, follow up outpatient (7) Oral thrush ICD Codes: B37.0 - Candidal stomatitis Status: Acute Plan: -Pt noted to have oral thrush on oral exam, able to scrape off the tongue -Pt stated she tested negative for HIV 1 yr ago -Declined HIV testing today -Possibly associated with ICS use for COPD. Pt stated she does not rinse her mouth after use. -nystatin swish-swallow 5ml QID started 03/27-- (8) JAYCEE (acute kidney injury) ICD Codes: N17.9 - Acute kidney failure, unspecified Plan: on admission: Cr. 1.41, today 1.37 -Pt with Cr levels ranging from 1.00-1.46 in the past yr -continue to monitor -DC IV fluids because patient taking by mouth and evidence of CHF via echo (9) Nutrition, metabolism, and development symptoms ICD Codes: R63.8 - Other symptoms and signs concerning food and fluid intake Plan: Fluids: By mouth fluids Electrolytes: BMP within normal limits Nutrition: regular diet DVT ppx: heparin SQ (Indu Amador MD R2) Problem List: (1) Influenza B ICD Codes: J10.1 - Influenza due to other identified influenza virus with other respiratory manifestations Status: Acute Plan: Pt found to be positive for influenza B. sxs improving. No leukocytosis (wbc-5.0) -CXR 03/27: no definite perihilar edema -Afebrile since 03/28 at 12 AM -repeat CXR 03/28: no change from prior -c/w tamiflu 75mg BID to complete total course of 5 days - legionella and pneumococcus urine ag: negative (2) Chest pain ICD Codes: R07.9 - Chest pain, unspecified Status: Acute Plan: CP resolved. -troponin-0.1, 0.09, 0.09 -EKG: sinus rhythm, normal -hx of cocaine use, last use 2 month ago per pt -UDS: positive for cocaine -stress test done in 10/2016: normal -elevated troponin on admission can be due to Influenza infection -Echocardiogram: Ejection fraction 35-40% Appreciate recommendations of patient's personal consulting solution manager Dr. Fernando - May be due to coronary spasm - Treat for influenza - Follow up with cardiology as outpatient (3) CHF (congestive heart failure) ICD Codes: I50.9 - Heart failure, unspecified Status: Chronic Plan: -c/w home meds -Echo done on 10/2016: EF: 45-50%, mild LVH -BNP- 11 -cardiology consulted, recommendation appreciated -Pt seen consulting solution manager Dr. Arvizu yesterday -f/u echo (4) HTN (hypertension) ICD Codes: I10 - Essential (primary) hypertension Status: Chronic Plan: -c/w home meds -BP: WNL (5) COPD (chronic obstructive pulmonary disease) ICD Codes: J44.9 - Chronic obstructive pulmonary disease, unspecified Status: Chronic Plan: -c/w home meds -Duoneb Q4h -Albuterol neb Q2h PRN (6) Anemia ICD Codes: D64.9 - Anemia, unspecified Status: Acute Plan: Hemoglobin 7.6 today, from 8.3 yesterday - will continue to monitor and consider transfusion if hgb <8 due to cardiac hx -Transfuse 2 U PRBCs - f/u posttransfusion H&H - Discharge if hemoglobin over 8.0 -GI consulted, follow up outpatient - Referral to [facility] for history of menorrhagia, follow up outpatient (7) Oral thrush ICD Codes: B37.0 - Candidal stomatitis Status: Acute Plan: -Pt noted to have oral thrush on oral exam, able to scrape off the tongue -Pt stated she tested negative for HIV 1 yr ago -Declined HIV testing today -Possibly associated with ICS use for COPD. Pt stated she does not rinse her mouth after use. -nystatin swish-swallow 5ml QID started 03/27-- (8) JAYCEE (acute kidney injury) ICD Codes: N17.9 - Acute kidney failure, unspecified Plan: on admission: Cr. 1.41, today 1.37 -Pt with Cr levels ranging from 1.00-1.46 in the past yr -continue to monitor -DC IV fluids because patient taking by mouth and evidence of CHF via echo (9) Nutrition, metabolism, and development symptoms ICD Codes: R63.8 - Other symptoms and signs concerning food and fluid intake Plan: Fluids: By mouth fluids Electrolytes: BMP within normal limits Nutrition: regular diet DVT ppx: heparin SQ See the residents documentation for details. I saw and evaluated the patient regarding the chawla portions of this evaluation and agree with the residents findings and plans as written. Parts of this note were created using [employer] voice recognition software program. While efforts were made to correct any mistakes made by this software, some mistakes, errors, and omissions may remain in the final note that were not caught when the note was originally created. Plan of care was discussed and agreed upon with the patient as specifically documented in the above note. An opportunity to ask questions with explanation was provided. Patient voiced understanding on all information reviewed and discussed. (Barry Pereira MD) Problem Qualifiers (1) Chest pain: Qualified Codes: R07.89 - Other chest pain Indu Amador MD R2 Mar 29, 2017 12:36 Barry Pereira MD Mar 30, 2017 10:48
[2017-03-29] MEDS ORDERED: SODIUM CHLOR 0.9% 250 ML INJ 250 ML IV ONE (12:45)
[2017-03-29] MEDS ORDERED: FERR325T20 PO (12:55)
[2017-03-29] MEDS ORDERED: OSEL75 PO (12:55)
[2017-03-29] MEDS ORDERED: Nystatin Liq SWISH-SWAL (12:55)
--- NOTE | 2017-03-29 12:56 | HHI.DCPOC ---
Discharge Care Plan Diagnosis: (1) COPD (chronic obstructive pulmonary disease) (2) Influenza A (3) CHF (congestive heart failure) (4) Oral thrush (5) JAYCEE (acute kidney injury) (6) Cocaine abuse (7) Elevated troponin Goals to Promote Your Health * To prevent worsening of your condition and complications * To maintain your health at the optimal level Directions to Meet Your Goals Take your medications as prescribed Follow your dietary instruction Follow activity as directed Keep your appointments as scheduled Take your immunizations and boosters as scheduled If your symptoms worsen call your PCP, if no PCP go to Urgent Care Center or Emergency Room Smoking is Dangerous to Your Health. Avoid second hand smoke Call the 24-hour hour crisis hotline for domestic abuse at Indu Amador MD R2 Mar 29, 2017 12:56
--- NOTE | 2017-03-29 13:57 | HHI.HP ---
[facility] Service Family Medicine Primary Care Physician No Primary Care Physician Admission Diagnosis influenza a, elevated troponin Diagnoses: (1) Influenza B (2) Chest pain (3) CHF (congestive heart failure) (4) HTN (hypertension) (5) COPD (chronic obstructive pulmonary disease) (6) Anemia (7) Oral thrush (8) JAYCEE (acute kidney injury) (9) Nutrition, metabolism, and development symptoms International Travel<30 Days: No Contact w/Intl Traveler<30days: No Known Affected Area: No History of Present Illness Patient was seen and examined at bedside today. She states feeling significantly better. Denies any complaint of chest pain, shortness of breath, or lightheadedness. Denies any fever or chills last night. No acute events during the night. States the medication is been helping. Denies any side effects of medication. States it is become extremely easier to breathe and speak. Overall doing well. Review of Systems Cardiovascular: DENIES: Chest pain, Palpitations, Syncope, Dyspnea on Exertion Gastrointestinal: DENIES: Abdominal pain, Black stools, Bloody stools, Constipation Genitourinary: DENIES: Abnormal vaginal bleeding Musculoskeletal: DENIES: Joint pain, Muscle aches, Stiffness Other REVIEW OF SYSTEMS: General: Denies fever or other problems. Skin: Denies rash. HEENT: No diplopia. No epistaxis. No headache. Head: Denies head injury. Respiratory: No cough. Denies shortness of breath. Cardiovascular: No chest pain. No reduced exercise tolerance. Gastrointestinal: No abdominal pain. No constipation or diarrhea. No hematemesis and rectal bleeding. Genitourinary: No abnormal urination. Hematologic: No easy bruisability. Psychiatric: Denies problems. Past Family Social History Past Medical History COPD CHF HTN high cholesterol asthma Past Surgical History none Allergies: Coded Allergies: lisinopril (Verified Allergy, Severe, 03/27/17) Family History mother- CHF Social History Lives in apartment -smoking: quit in May 2016, prior smoking hx of 1 pack per day for 20yrs -EtOH: 2x per month -Cocaine use, last used 2 months ago, sniff Physical Exam Vital Signs Vital Signs Date Time Temp Pulse Resp B/P (MAP) Pulse Ox O2 Delivery O2 Flow Rate FiO2 03/29/17 12:06 98.0 81 20 118/62 (80) 96 03/29/17 08:34 93 03/29/17 08:07 98.3 81 21 129/60 (83) 93 03/29/17 08:00 76 03/29/17 07:02 98.2 03/29/17 04:15 78 03/29/17 04:00 100.1 81 20 140/56 (84) 93 03/29/17 03:58 18 03/29/17 00:59 94 03/29/17 00:26 72 03/29/17 00:00 99.1 83 24 134/63 (86) 93 03/28/17 20:11 88 03/28/17 20:00 99.3 88 20 104/64 (77) 93 03/28/17 16:06 Room Air 03/28/17 16:00 80 03/28/17 15:33 96 Nasal Cannula 2.00 03/28/17 14:06 99.8 80 20 119/69 (86) 98 Physical Exam GENERAL: This is a well-nourished, well-developed patient, in no apparent distress. SKIN: No rashes, ecchymoses or lesions. Cool and dry. HEAD: Atraumatic. Normocephalic. No temporal or scalp tenderness. EYES: Pupils equal round and reactive. Extraocular motions intact. No scleral icterus. No injection or drainage. ENT: Nose without bleeding, purulent drainage or septal hematoma. Throat without erythema, tonsillar hypertrophy or exudate. Uvula midline. Airway patent. NECK: Trachea midline. No JVD or lymphadenopathy. Supple, nontender, no meningeal signs. CARDIOVASCULAR: Regular rate and rhythm without murmurs, gallops, or rubs. RESPIRATORY: Mild wheeze over left, no rales or rhonchi. GASTROINTESTINAL: Abdomen soft, non-tender, nondistended. No hepato-splenomegaly , or palpable masses. No guarding. MUSCULOSKELETAL: Extremities without clubbing, cyanosis, or edema. No joint tenderness, effusion, or edema noted. No calf tenderness. Negative Homans sign bilaterally. NEUROLOGICAL: Awake and alert. Cranial nerves II through XII intact. Motor and sensory grossly within normal limits. Five out of 5 muscle strength in all muscle groups. Normal speech. Laboratory Laboratory Tests Test 03/29/17 07:30 White Blood Count 5.0 Red Blood Count 4.12 Hemoglobin 7.6 Hematocrit 25.3 Mean Corpuscular Volume 61.3 Mean Corpuscular Hemoglobin 18.3 Mean Corpuscular Hemoglobin Concent 29.9 Red Cell Distribution Width 21.0 Platelet Count 284 Mean Platelet Volume 8.9 Neutrophils (%) (Auto) 51.5 Lymphocytes (%) (Auto) 32.6 Monocytes (%) (Auto) 14.1 Eosinophils (%) (Auto) 0.9 Basophils (%) (Auto) 0.9 Neutrophils # (Auto) 2.6 Lymphocytes # (Auto) 1.6 Monocytes # (Auto) 0.7 Eosinophils # (Auto) 0.0 Basophils # (Auto) 0.0 CBC Comment DIFF FINAL Differential Comment Blood Urea Nitrogen 17 Creatinine 1.37 Random Glucose 129 Total Protein 6.7 Calcium Level 7.4 Sodium Level 136 Potassium Level 3.7 Chloride Level 101 Carbon Dioxide Level 25.2 Anion Gap 10 Estimat Glomerular Filtration Rate 50 Protein Corrected Calcium 7.6 Iron Level 14 Total Iron Binding Capacity 427 Percent Iron Saturation 3.3 Ferritin 40 Date/Time Source Procedure Growth Status 03/27/17 14:27 Nasal Aspirate Influenza Types A,B Antigen (DAVY) - Final Positive For Flu B Antigen Complete 03/28/17 14:24 Urine Clean Catch Legionella Antigen - Final PRESUMPTIVE NEGATIVE FOR LEGIONELLA P... Complete 03/28/17 14:24 Urine Clean Catch Streptococcus pneumoniae Antigen (M - Final PRESUMPTIVE NEGATIVE FOR STREPTOCOCCU... Complete Result Diagram: 03/29/17 0730 03/29/17 0730 Imaging Last Impressions Chest X-Ray 03/27/17 1349 Signed Impressions: Service Date/Time: March 14:06 - CONCLUSION: The heart size appears mildly prominent with no definite perihilar edema. Rodriguez Bird MD Caprini VTE Risk Assessment Caprini VTE Risk Assessment: No/Low Risk (score <= 1) Caprini Risk Assessment Model Point Value = 1 Point Value = 2 Point Value = 3 Point Value = 5 Age 41-60 Minor surgery BMI > 25 kg/m2 Swollen legs Varicose veins or History of unexplained or recurrent spontaneous Oral contraceptives or hormone replacement Sepsis (< 1 month) Serious lung disease, including pneumonia (< 1 month) Abnormal pulmonary function Acute myocardial infarction Congestive heart failure (< 1 month) History of inflammatory bowel disease Medical patient at bed rest Age 61-74 Arthroscopic surgery Major open surgery (> 45 min) Laparoscopic surgery (> 45 min) Malignancy Confined to bed (> 72 hours) Immobilizing plaster cast Central venous access Age >= 75 History of VTE Family history of VTE Factor V Leiden Prothrombin [id number] Lupus anticoagulant Anticardiolipin antibodies Elevated serum homocysteine Heparin-induced thrombocytopenia Other congenital or acquired thrombophilia Stroke (< 1 month) Elective arthroplasty Hip, pelvis, or leg fracture Acute spinal cord injury (< 1 month) Prophylaxis Regimen Total Risk Factor Score Risk Level Prophylaxis Regimen 0-1 Low Early ambulation 2 Moderate Order ONE of the following: *Sequential Compression Device (SCD) *Heparin 5000 units SQ BID 3-4 Higher Order ONE of the following medications: *Heparin 5000 units SQ TID *Enoxaparin/Lovenox 40 mg SQ daily (WT < 150 kg, CrCl > 30 mL/min) *Enoxaparin/Lovenox 30 mg SQ daily (WT < 150 kg, CrCl > 10-29 mL/min) *Enoxaparin/Lovenox 30 mg SQ BID (WT < 150 kg, CrCl > 30 mL/min) AND/OR *Sequential Compression Device (SCD) 5 or more Highest Order ONE of the following medications: *Heparin 5000 units SQ TID (Preferred with Epidurals) *Enoxaparin/Lovenox 40 mg SQ daily (WT < 150 kg, CrCl > 30 mL/min) *Enoxaparin/Lovenox 30 mg SQ daily (WT < 150 kg, CrCl > 10-29 mL/min) *Enoxaparin/Lovenox 30 mg SQ BID (WT < 150 kg, CrCl > 30 mL/min) AND *Sequential Compression Device (SCD) Assessment and Plan Assessment and Plan Patient is a 51-year-old female with past medical history of CHF, COPD, HTN that presents to the ED with 2 day history of productive cough (green phlem) associated with CP and generalize malaise. Pt found to be positive for influenza B in the ED. Pt met sepsis criteria on admission: fever 102.5F, tachycardia HR:96, with source of infection being the lungs. UA positive. Problem List: (1) Influenza B ICD Codes: J10.1 - Influenza due to other identified influenza virus with other respiratory manifestations Status: Acute Plan: Patient feeling well at this time Continue Tamiflu Discussed with her about prophylaxis for people at home To the patient about having a flu shot (2) Chest pain ICD Codes: R07.9 - Chest pain, unspecified Status: Acute Plan: Appreciated recommendations for cardiology Spoke to the patient length about cessation of cocaine This with her about her echo Should the patient about ways to improve her current condition Patient's discomfort has resolved (3) CHF (congestive heart failure) ICD Codes: I50.9 - Heart failure, unspecified Status: Chronic Plan: Patient continue home medication Spoke with her about results of the echo (4) HTN (hypertension) ICD Codes: I10 - Essential (primary) hypertension Status: Chronic Plan: Good control at this time Continue patient's home medication (5) COPD (chronic obstructive pulmonary disease) ICD Codes: J44.9 - Chronic obstructive pulmonary disease, unspecified Status: Chronic Plan: Doing good at this time Started her home medicine Length about cessation of cigarettes (6) Anemia ICD Codes: D64.9 - Anemia, unspecified Status: Acute Plan: Appreciate recommendations from GI Spoke to the patient about transfusion if needed Discussed with her about following up with [facility] Patient does have a history of prolonged periods, and abnormal cycles (7) Oral thrush ICD Codes: B37.0 - Candidal stomatitis Status: Acute Plan: Seemed to do well with the nystatin Spoke to the patient about ways to improve her thrush in the future, including using a spacer with her inhalers Currently resolved (8) JAYCEE (acute kidney injury) ICD Codes: N17.9 - Acute kidney failure, unspecified Plan: Continue to monitor her fluids and renal function (9) Nutrition, metabolism, and development symptoms ICD Codes: R63.8 - Other symptoms and signs concerning food and fluid intake Plan: Fluids: By mouth fluids Electrolytes: BMP within normal limits Nutrition: regular diet DVT ppx: heparin SQ See the residents documentation for details. I saw and evaluated the patient regarding the chawla portions of this evaluation and agree with the residents findings and plans as written. Parts of this note were created using [employer] voice recognition software program. While efforts were made to correct any mistakes made by this software, some mistakes, errors, and omissions may remain in the final note that were not caught when the note was originally created. Plan of care was discussed and agreed upon with the patient as specifically documented in the above note. An opportunity to ask questions with explanation was provided. Patient voiced understanding on all information reviewed and discussed. Physician Certification 2 Midnight Certification Type: Admission for Inpatient Services Order for Inpatient Services The services are ordered in accordance with Medicare regulations or non- Medicare payer requirements, as applicable. In the case of services not specified as inpatient-only, they are appropriately provided as inpatient services in accordance with the 2-midnight benchmark. Estimated LOS (days): 2 days is the estimated time the patient will need to remain in the hospital, assuming treatment plan goals are met and no additional complications. Post-Hospital Plan: Home Problem Qualifiers (1) Chest pain: Qualified Codes: R07.89 - Other chest pain Barry Pereira MD Mar 29, 2017 13:57
[2017-03-29] MEDS: traMADol HCL 50 MG TAB PO PRN (14:54)
--- NOTE | 2017-03-29 15:47 | EKG ---
Date Performed: 03/29/2017 Time Performed: 01:44:22 PTAGE: 51 years EKG: Sinus rhythm Poor R wave progression - probable normal variant Slight nonspecific intraventricular conduction Sin ce previous tracing, no significant change noted Borderline ECG PREVIOUS TRACING : 03/28/2017 01.05 DOCTOR: Shahid Grubbs Interpretating Date/Time 03/29/2017 15:45:37
--- NOTE | 2017-03-29 17:17 | PD.AMA ---
Against Medical Advice Note Discharge Disposition: Against Medical Advice Pt Condition on Discharge: Guarded Recommended Treatment Course Pt was supposed to get blood products transfusion for Hgb <8.0; however, decided it was taking too long and decided to leave AMA. AMA Statement Patient April Ayala has decided to leave the hospital against medical advice. This patient has the capacity to refuse care and understands the risks of leaving, including permanent disability and/or , and has had an opportunity to ask questions about her condition. The patient has been informed that she may return for care at any time, and follow up has been arranged/ advised. Hugo Caballero MD R1 Mar 29, 2017 17:17
== END 2017-03-29 17:08 | disposition left against medical advice (07) ==
LOC: NEPE 13:35 → NEDA 17:00 → INTOOBSV 17:00 → NEDA 18:00 → N04A 19:11
PROVIDERS: ADMIT Family Medicine; ATTEND Family Medicine
DX: J10.1 Influenza due to other identified influenza virus with other respiratory manifestations (principal); R74.8 Abnormal levels of other serum enzymes; I50.9 Heart failure, unspecified; I11.0 Hypertensive heart disease with heart failure; I42.9 Cardiomyopathy, unspecified; J44.9 Chronic obstructive pulmonary disease, unspecified; Z87.891 Personal history of nicotine dependence; Z79.899 Other long term (current) drug therapy; F14.10 Cocaine abuse, uncomplicated; R07.2 Precordial pain; D64.9 Anemia, unspecified; N39.0 Urinary tract infection, site not specified; B37.0 Candidal stomatitis; N17.9 Acute kidney failure, unspecified; E78.00 Pure hypercholesterolemia, unspecified; B96.89 Other specified bacterial agents as the cause of diseases classified elsewhere; R94.31 Abnormal electrocardiogram [ECG] [EKG]
CPT/HCPCS: 71046; 76937; 80048; 80053; 80061; 80307; 81001; 82550; 82552; 82607; 82728; 82746; 83540; 83550; 83605; 83735; 83880; 84155; 84484; 85025; 85610; 85730; 86850; 86900; 86901; 86920; 87086; 87449; 87804; 93005; 93306; 94150; 94640; 94664; 96360; 96361; 99285; G0378; J1644; J7030